=== PATIENT | female | born 1950 | race Caucasian/White ===

== ENCOUNTER 2023-02-04 14:19 | Outpatient (AMB) | payer MEDICARE, OTHER, SELFPAY ==
--- NOTE | 2023-02-04 14:31 | A.OFFVIS_ITS ---
Intake Intake Visit Reasons: Bladder Mass/ Cysto Intake Note: * New patient presents to established treatment for Bladder Mass/CYSTO Procedure * Meds- Cipro, Naproxen * Allergies to Antibiotic- None * Blood Thinner- Aspirin Edi Coordinator Required: No Accompanied by: Daughter Allergies No Known Allergies Allergy (Verified 02/04/23 14:31) HPI HPI Comments History of Present Illness Details Karmen is a 72-year-old female who is here as a new patient evaluation for bladder mass. 02/04/23-- The patient states for several weeks she has been having UTI symptoms including dysuria and blood in the urine. She was treated for UTI but was told urine culture did not come back with bacteria. Her PCP ordered a renal bladder ultrasound which noted a 5 cm mass the right side of the bladder. History of cigarette use age [age] less than half a pack a day. She states she was exposed to secondhand smoke for over 20 years in her workplace. Family history a mother lung cancer, bladder cancer. Evaluation today: Office cystoscopy pain notes a large greater than 5 cm papillary bladder mass right lateral wall in addition to at least 2 other smaller papillary lesions noted on the left lateral wall and posterior bladder wall. Plan: Bladder mass suspicious for bladder cancer. CTAP with and without IV contrast Discussed cystoscopy TURBT. Consent for the procedure was obtained. [facility] Medical History (Updated 02/06/23 @ 16:31 by Carrington Cano) Hx of gastroesophageal reflux (GERD) Hx of hyperlipidemia Hx of osteoporosis Surgical History (Updated 02/04/23 @ 15:34 by JUANA Antonio) History of ectopic History of laparoscopic appendectomy Hx of hiatal hernia Hx of total hysterectomy Family History (Updated 02/04/23 @ 14:47 by JUANA Antonio) Mother Tumor of lung Father Bladder cancer Myocardial infarction Review of Systems Const All systems reviewed & are unremarkable except as noted in HPI and below Reports no additional complaints Eyes Reports no additional complaints ENT Reports no additional complaints Card Denies dyspnea Resp Denies cough and Denies dyspnea GI Reports no additional complaints Reports no additional complaints Musc Reports no additional complaints Skin/Breast Denies rash and Denies unusual bruising Neuro Reports no additional complaints Psych Reports no additional complaints Endo Reports no additional complaints [place]/Lymph Reports no additional complaints Aller/Immun Reports no additional complaints Physical Exam Const General: cooperative, healthy appearing and no acute distress Orientation/consciousness: patient oriented x3 HEENT Head: Yes normal to inspection, Yes normocephalic and Yes atraumatic Eyes Conjunctivae: conjunctivae normal Neck Neck: Yes normal visual inspection and Yes trachea midline Chest Chest palpation & inspection: normal inspection of the chest Resp Effort & Inspection: normal respiratory effort Cardio Rate: regular rate GI Inspection: Yes normal to inspection Palpation (GI): Soft to palpation General: No no CVA tenderness External Female Exam: normal external appearance Speculum Exam - Vagina: vagina atrophic Back/Spine/Pelvis Back: No no CVA tenderness Skin General skin exam: no rashes or lesions noted Neuro General: patient oriented x3 Extrem General: No edema Psych Appearance: grossly normal Office Procedures Cystoscopy Consent Discussed risk and benefit or proposed procedure with the patient. Information consent for procedure given to the patient. Discussed technical aspects, risks, benefits and alternatives in full. Addressed all of the patient's questions and concerns regarding the procedure. The patient demonstrated knowledge and understanding. They wish to proceed with this procedure. Preparation The patient was prepped in the usual manner. A terminal computer operator was present and in the room. Genitalia was prepped with betadine solution in a sterile manner. Lidocaine Jelly 2% was placed into the urethra and 16Fr flexible Olympus cystoscope was inserted into the meatus after adequate lubrication. Procedure Time out per protocol performed. Bladder Inspection Bladder Inspection: The bladder was inspected in its entirety with utilization retroflexion displaying: Tumor(s): a large greater than 5 cm papillary bladder mass right lateral wall in addition to at least 2 other smaller papillary lesions noted on the left lateral wall and posterior bladder wall. Trabeculation: N/A Mucosal Erthema: mild to moderate Orifices: normal shape and position Urethra: normal Cystoscopy findings: suspicious bladder lesions visualized as noted above [id number] Procedure code (CPT) selection complete Office Meds lidocaine HCl Performing Provider: Carrillo Garcia MD Administered by: Tammy Hogue RN on 02/04/23 15:11 Dose Route Admin Location Lot Number Expiration Date NDC Sampler Pickup 10 mL intra-urethral naproxen Performing Provider: Carrillo Garcia MD Administered by: Tammy Hogue RN on 02/04/23 15:11 Dose Route Admin Location Lot Number Expiration Date NDC Sampler Pickup 500 mg PO ciprofloxacin HCl Performing Provider: Carrillo Garcia MD Administered by: Tammy Hogue RN on 02/04/23 15:11 Dose Route Admin Location Lot Number Expiration Date NDC Sampler Pickup 500 mg PO Results AMB Urinalysis, Automated UA Leukoctes 0 Lena/uL Last Edit by Rj Bustos [facility] on 02/04/23 14:52 UA Nitrite Negative Last Edit by Rj Bustos [facility] on 02/04/23 14:52 UA Urobilinogen 0.2 mg/dL Last Edit by Rj Bustos [facility] on 02/04/23 14:5 2 UA Protein 300 mg/dL Last Edit by Rj Bustos [facility] on 02/04/23 14:52 3+ Rj Bustos 02/04/23 14:52 UA pH 6.0 Last Edit by Rj Bustos [facility] on 02/04/23 14:52 UA Blood 200 Sloan/uL Last Edit by Rj Bustos [facility] on 02/04/23 14:52 3+ Rj Bustos 02/04/23 14:52 UA Specific [place] 1.025 Last Edit by Rj Bustos [facility] on 02/04/23 14: 52 UA Ketone Negative Last Edit by Rj Bustos [facility] on 02/04/23 14:52 UA Bilirubin 0 mg/dL Last Edit by Rj Busots [facility] on 02/04/23 14:52 UA Glucose 0 mg/dL Last Edit by Rj Bustos [facility] on 02/04/23 14:52 Results Reviewed Results Reviewed: Laboratory Last Values Urine pH (Auto) 6.0 02/04/23 14:49 Specific [place] (Auto) 1.025 02/04/23 14:49 Urine Protein (Auto) 300 mg/dL 02/04/23 14:49 Glucose (UA)(Auto) 0 mg/dL 02/04/23 14:49 Urine Ketones (Auto) Negative 02/04/23 14:49 Urine Blood (Auto) 200 Sloan/uL 02/04/23 14:49 Urine Nitrite (Auto) Negative 02/04/23 14:49 Urine Bilirubin (Auto) 0 mg/dL 02/04/23 14:49 Urine Urobilinogen (Auto) 0.2 mg/dL 02/04/23 14:49 Leukocyte Esterase (Auto) 0 Lena/uL 02/04/23 14:49 Assessment & Plan Assessment & Plan (1) Gross hematuria: Code(s): R31.0 - Gross hematuria (2) Bladder mass: Code(s): N32.89 - Other specified disorders of bladder Plan Bladder mass suspicious for bladder cancer. CTAP with and without IV contrast Discussed cystoscopy TURBT. Consent for the procedure was obtained. Orders: Orders CT abdomen pelvis wo/w IV con 02/04/23 N32.89 - Other specified disorders of bladder, R31.0 - Gross hematuria AMB Cystoscopy 02/04/23 Z13.9 - Encounter for screening, unspecified AMB Urinalysis Automated 02/04/23 Z13.9 - Encounter for screening, unspecified Patient Instructions: The patient had an opportunity to ask questions regarding treatment plan. All questions were answered. Laboratory studies and physical exam results were discussed and reviewed in detail. No major barriers to understanding were identified. The patient expressed understanding and agreement with the above treatment plan. The patient is aware they should contact our office by phone for worsening of their current condition or the appearance of new symptoms. Compliance is enco uraged with any medications and followup testing that is ordered. It is a privilege to be allowed the opportunity to participate in the urologic care of your patient. If you have any questions or concerns regarding treatment for the above conditions please do not hesitate to contact me. The office telephone contact is [phone]. This note is constructed in part using voice recognition software. While every effort has been made to ensure accuracy lung splitter errors may have been included. Yours sincerely, Carrillo Garcia MD Coding Level of Care Code New Pt Level 4 (35627) Diagnoses Gross hematuria R31.0 Bladder mass N32.89 CPT Codes Cystoscopy - CPT: 09332-[id number] ([id number])
== END 2023-02-04 15:53 | disposition home or self-care (01) ==
PROVIDERS: PCP Nurse Practitioner Family; Visit Provider Urology
DX: R31.0 Gross hematuria (principal); N32.89 Other specified disorders of bladder
CPT/HCPCS: 52000; 99204

== ENCOUNTER → 2023-02-04 14:19 | Outpatient (BNVA) | payer MEDICARE, OTHER, SELFPAY | PROVIDERS: PCP Nurse Practitioner Family; Visit Provider Urology | DX: R31.0 Gross hematuria (principal); N32.89 Other specified disorders of bladder | CPT/HCPCS: 52000; 99202 ==

== ENCOUNTER 2023-02-07 09:42 | Outpatient (REF) | payer MEDICARE, OTHER, SELFPAY ==
[2023-02-07 12:07] LABS: Blood Urea Nitrogen 23 mg/dL (9-16); Estimated Glomerular Filt Rate > 60
== END 2023-02-07 09:43 | disposition home or self-care (01) ==
LOC: HO.LAB 09:42
PROVIDERS: PCP Physician Assistant; Visit Provider Urology
DX: N32.89 Other specified disorders of bladder (principal); R31.0 Gross hematuria
CPT/HCPCS: 36415; 82565; 84520

== ENCOUNTER 2023-02-14 13:55 | Outpatient (REF) | payer MEDICARE, OTHER, SELFPAY ==
--- NOTE | ~2023-02-14 | CT_ITS ---
EXAMINATION: CT ABDOMEN AND PELVIS WITHOUT AND WITH CONTRAST CLINICAL INFORMATION: Disorder of bladder COMPARISON: None available. TECHNIQUE: Multidetector volumetric imaging was performed of the abdomen and pelvis before and after the IV administration of 85 mL of Omnipaque 300 intravenous contrast. Sagittal and coronal reformatted images were obtained on the technologist's workstation. This CT examination was performed using dose optimization techniques as appropriate, variously including the following: *Automated exposure control *Adjustment of mA and/or kV according to patient size (this includes techniques or standardized protocols for targeted exams where dose is matched to indication/reason for exam; i.e. extremities or head) *Use of iterative reconstruction technique DLP: 574 mGy-cm FINDINGS: LUNG BASES: The visualized lung bases are clear. Moderate size esophageal hernia. LIVER, GALLBLADDER, AND BILIARY TREE: Fatty liver. The gallbladder is unremarkable with no evidence of radiopaque gallstones, gallbladder wall thickening, or obvious pericholecystic inflammatory changes. PANCREAS: Unremarkable SPLEEN: Unremarkable ADRENAL GLANDS: Unremarkable KIDNEYS AND URETERS: The kidneys are normal in size, shape, and attenuation. No hydronephrosis, hydroureter, or calculi seen. No perinephric stranding. There may be a mild right UPJ obstruction. The collecting systems are otherwise normal. The ureters are normal. There are small left renal peripelvic cysts. BLADDER: There is a large bladder mass involving the anterior superior wall of the bladder. This measures approximately 6 x 3 I 6 cm in transverse AP and longitudinal dimension. There is a stranding of the perivesicular fat and nodular contour of the fat suggestive of extension outside the bladder wall. There is a second 5 mm polypoid mass adjacent to the left lateral bladder wall. Both findings are suspicious for malignancy. GASTROINTESTINAL TRACT: Mild diverticulosis of the colon. The small and large bowel are otherwise unremarkable. The appendix is not seen ABDOMINAL WALL: No significant hernia is appreciated. LYMPH NODES: Normal VASCULAR: Atherosclerotic disease. No aneurysm. PELVIC VISCERA: The uterus appears to have been removed. OSSEOUS STRUCTURES: Degenerative changes of the spine and mild curvature to the left. CT/CT abdomen pelvis wo/w IV con IMPRESSION: Large 6 x 6 x 3 cm bladder mass and likely local pelvic extension extension outside the bladder wall into the adjacent fat. Second small polypoid 5 mm lesion adjacent to the left lateral bladder wall. Both findings are suspicious for bladder neoplasm. Probable mild right UPJ obstruction. Mild diverticulosis of the colon. Fatty liver. Moderate size esophageal hernia. Fleischner guidelines were followed. 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
[2023-02-14] MEDS: iohexoL 350 MG/ML 100 ML INFUS..BTL IV (15:41)
== END 2023-02-14 13:56 | disposition home or self-care (01) ==
LOC: HO.CT 13:55
PROVIDERS: PCP Physician Assistant; Visit Provider Urology
DX: N32.89 Other specified disorders of bladder (principal); R31.0 Gross hematuria
CPT/HCPCS: 74178; Q9967

== ENCOUNTER 2023-02-19 06:42 | Day surgery (SDC) | payer MEDICARE, OTHER, SELFPAY ==
--- NOTE | 2023-02-18 09:21 | HO.ANESPROP2 ---
Documented by User: Darling Reyes NP 02/18/23 09:26 HPI - Anesthesia Eval Consult details Narrative: 72yo F for TUR Bladder Tumor PMFSH Active Problems Active Problems: All Active Problems (Updated 02/06/23 @ 16:31 by Carrington Cano) Bladder mass (Acute) Gross hematuria (Acute) Past Medical History Medical History (Updated 02/06/23 @ 16:31 by Carrington Cano) Hx of gastroesophageal reflux (GERD) Hx of hyperlipidemia Hx of osteoporosis Family History Family History (Updated 02/04/23 @ 14:47 by JUANA Antonio) Mother Tumor of lung Father Bladder cancer Myocardial infarction Surgical History Surgical History (Updated 02/04/23 @ 15:34 by JUANA Antonio) History of ectopic History of laparoscopic appendectomy Hx of hiatal hernia Hx of total hysterectomy Social History Social History Patient Tobacco Use Status: Former Tobacco user Quit Date: 50 years ago Tobacco use type: Cigarette Years Smoked: 3 Use of substances other than those prescribed or required for medical reasons: No Are you DNR?: No Advance Directives: No Advance Directives Information Provided: Yes Advance Directives on File: No Meds Allergies Allergy/AdvReac Type Severity Reaction Status Date / Time No Known Allergies Allergy Verified 02/04/23 14:31 Home Medications Medication Instructions Recorded Confirmed Last Taken Type aspirin 81 mg tablet,delayed 81 mg PO DAILY 02/04/23 02/19/23 01/26/23 History release atorvastatin 20 mg tablet 20 mg PO BEDTIME 02/04/23 02/19/23 02/17/23 History biotin 5,000 mcg disintegrating 5,000 mcg PO DAILY 02/04/23 02/19/23 02/18/23 History tablet biotin 800 mcg tablet 800 mcg PO DAILY 02/04/23 02/19/23 02/18/23 History calcium citrate 250 mg See Rx Instructions PO TID 02/04/23 02/19/23 02/18/23 History calcium-vitamin D3 5 mcg (200 unit) tablet cholecalciferol (vitamin D3) 50 2,000 unit PO DAILY 02/04/23 02/19/23 02/18/23 History mcg (2,000 unit) capsule fluoxetine 20 mg capsule 20 mg PO DAILY 02/04/23 02/19/23 02/18/23 History hydrochlorothiazide 25 mg tablet 25 mg PO ONCE 02/04/23 02/19/23 02/18/23 History multivitamin 1 tab PO DAILY 02/04/23 02/19/23 02/18/23 History omeprazole 20 mg capsule,delayed 20 mg PO DAILY 02/04/23 02/19/23 02/18/23 History release zoledronic acid 5 mg/100 mL in IV 02/04/23 Unknown History mannitol 5 %-water intravenous piggybck (Reclast) Exam Exam Date and Time: February 18, [id number] Pertinent Lab Results Pertinent Lab Results: Laboratory Tests 02/07/23 09:57 BUN 23 H Creatinine 0.84 Assessment and Plan Assessment Anesthesia Assessment: Chart Reviewed Documented by User: Yary Lujan MD 02/19/23 09:16 [facility] Past Medical History Medical History (Updated 02/06/23 @ 16:31 by Carrington Cano) Hx of gastroesophageal reflux (GERD) Hx of hyperlipidemia Hx of osteoporosis Family History Family History (Updated 02/04/23 @ 14:47 by JUANA Antonio) Mother Tumor of lung Father Bladder cancer Myocardial infarction Surgical History Surgical History (Updated 02/04/23 @ 15:34 by JUANA Antonio) History of ectopic History of laparoscopic appendectomy Hx of hiatal hernia Hx of total hysterectomy Social History Social History Patient Tobacco Use Status: Former Tobacco user Quit Date: 50 years ago Tobacco use type: Cigarette Years Smoked: 3 Use of substances other than those prescribed or required for medical reasons: No Are you DNR?: No Advance Directives: No Advance Directives Information Provided: Yes Advance Directives on File: No Meds Allergies Allergy/AdvReac Type Severity Reaction Status Date / Time No Known Allergies Allergy Verified 02/04/23 14:31 Home Medications Medication Instructions Recorded Confirmed Last Taken Type aspirin 81 mg tablet,delayed 81 mg PO DAILY 02/04/23 02/19/23 01/26/23 History release atorvastatin 20 mg tablet 20 mg PO BEDTIME 02/04/23 02/19/23 02/17/23 History biotin 5,000 mcg disintegrating 5,000 mcg PO DAILY 02/04/23 02/19/23 02/18/23 History tablet biotin 800 mcg tablet 800 mcg PO DAILY 02/04/23 02/19/23 02/18/23 History calcium citrate 250 mg See Rx Instructions PO TID 02/04/23 02/19/23 02/18/23 History calcium-vitamin D3 5 mcg (200 unit) tablet cholecalciferol (vitamin D3) 50 2,000 unit PO DAILY 02/04/23 02/19/23 02/18/23 History mcg (2,000 unit) capsule fluoxetine 20 mg capsule 20 mg PO DAILY 02/04/23 02/19/23 02/18/23 History hydrochlorothiazide 25 mg tablet 25 mg PO ONCE 02/04/23 02/19/23 02/18/23 History multivitamin 1 tab PO DAILY 02/04/23 02/19/23 02/18/23 History omeprazole 20 mg capsule,delayed 20 mg PO DAILY 02/04/23 02/19/23 02/18/23 History release zoledronic acid 5 mg/100 mL in IV 02/04/23 Unknown History mannitol 5 %-water intravenous piggybck (Reclast) Exam Airway Mallampati Class: I TM Dist: >3cm Neck ROM: Full Loose/Missing/Broken Teeth: No
[2023-02-19] VITALS (15 sets, daily range): BP systolic 99–153; BP diastolic 54–78; PULSE 52–95; RESP 11–20; TEMP 36.1–37.1; O2SAT 94–100; BMI 26.1; BMI 29.2
[2023-02-19] MEDS: Lactated Ringers 1,000 ML 100 ML IVCONT (08:13)
--- NOTE | 2023-02-19 08:44 | MHC.SHP ---
Pre-Procedural Eval Section A Date of Service: 02/19/23 The patient is an INPATIENT: No The History & Physical has been completed within 30 days and I have reviewed it.: Yes Section B Chief Complaint: Other specified disorders of bladder Details of Present Illness: CT Abd/pelvis w/wo IV contrast-Findings: >6 cm bladder mass and likely local pelvic extension, extension outside the bladder wall into the adjacent fat. Second small polypoid 5 mm lesion adjacent to the left lateral bladder wall. Allergies: Allergies Allergy/AdvReac Type Severity Reaction Status Date / Time No Known Allergies Allergy Verified 02/04/23 14:31 Plan Diagnosis/Plan: Unchanged I have reviewed the history and physical and performed a pertinent physical examination on my patient. No changes have occurred unless specified. Cysto TURBT Fulgaration Time Spent With Patient Time: Total time managing care of this patient today ____ minutes.
[2023-02-19 09:19] LABS: MANUAL DIFF FLAG NO
[2023-02-19 09:20] LABS: Basophils Percent Auto 0.8 % (0-2); Eosinophils Absolute Auto 0.1 X10*3/uL (0.0-0.4); Eosinophils Percent Auto 2.5 % (0-4); Hemoglobin 13.2 g/dl (12.0-16.0); Imm Gran Abs Auto 0.01 X10*3/uL (0.00-0.03); Imm Gran Pct Auto 0.2 % (0.0-0.4); Lymphocytes Absolute Auto 1.6 X10*3/uL (1.2-4.9); Lymphocytes Percent Auto 30.7 % (20-40); Mean Corpuscular Hemoglobin 30.9 pg (27.0-33.0); Mean Corpuscular Volume 93.7 fL (80.0-98.0); Mean Platelet Volume 9.8 fL (9.4-12.3); Monocytes Absolute Auto 0.4 X10*3/uL (0.1-1.2); Monocytes Percent Auto 7.6 % (2-11); Neutrophils Percent Auto 58.2 % (45-73); Platelet Count 198 X10*3/uL (160-400); Red Blood Count 4.27 X10*6/uL (4.20-5.50); Red Cell Distribution Width 13.2 % (11.0-16.0); White Blood Count 5.1 X10*3/uL (4.8-10.8)
[2023-02-19] MEDS: oxyCODONE HCl Immed Release 5 MG TABLET PO (12:40)
--- NOTE | 2023-02-19 12:47 | W.PM.OPN ---
Operative Note Operative Note Date of Service: 02/19/23 Narrative: PREOP DIAGNOSIS: Bladder mass POSTOP DIAGNOSIS: Bladder mass PROCEDURE: CYSTOSCOPY TRANSURETHRAL RESECTION OF BLADDER TUMOR, FULGURATION Anesthesia: General Surgeon Dr. Arevalo Indications: Gross hematuria Findings: Right lateral/superior wall large tumor >6 cm, satellite papillary tumors, posterior wall, left lateral wall, behind trigone Details of procedure: The patient was brought into the operating room placed on the OR table in supine position. Levaquin 500 mg IV. General anesthesia was administered. The patient was repositioned into lithotomy position, prepped and draped in the usual sterile fashion. Time-out was done per protocol. 2 urojet placed. The 24 Lithuanian resectoscope with obturator was passed transurethrally into the bladder. Visualization of the bladder noted Very large papillary bladder tumor right lateral/anterior to superior wall involving the dome, multiple satelite lesions, 7 small lesions measuring 2mm to 10 mm noted one lateral to the right hemitrigne, 2 left lateral wall, 4 posterior wall. No active bleeding noted. The loop and rollar ball attachments were used initially to fulgarate the smaller lesions. The larger papillary tumor left posterior lateral wall was resected and sent as specimen. Due to the size the the tumor on othe right lateral/superior wall, the loop/and roller ball was used to fulgurate the large bladder tumor to limit bleeding, some of the tumor was resected and sent with the specimen, there was tumor extending into the dome and there appeared to be a wide mouthed small diverticulum at the dome, all the the tumor in that area was not fulgarated or completely resected. Once there was good hemostasis, a 20 fr smith was placed to gravity drainage. 15 cc fluid placed in the balloon. The patient was brought out of anesthesia and taken to recovery in stable condition. Complications: None Drains: [address] catheter 15 cc in balloon
[2023-02-19] MEDS: fentaNYL citrate/PF 100 MCG/2 ML VIAL 50 MCG IVPUSH (13:19)
--- NOTE | 2023-02-19 13:19 | PHA.MEDREC ---
Pharmacy Consult ? Medication Reconciliation Pharmacy has completed the medication reconciliation. Reviewed med rec done by nursing
[2023-02-19] MEDS: Sodium Chloride 0.45 % 1,000 ML 100 ML IVCONT ×2 (14:59→23:53)
[2023-02-19] MEDS: Throat Lozenge, Medicated LOZENGE 1 LOZENGE MUCOUS MEM (19:32)
[2023-02-19] MEDS: Docusate Sodium 100 MG CAPSULE PO (19:34)
[2023-02-19] MEDS: Magnesium Hydrox/Alum Hydrox 30 ML ORAL.SUSP PO (19:34)
[2023-02-19] MEDS: Melatonin 3 MG TABLET PO (22:10)
[2023-02-20] MEDS: Magnesium Hydrox/Alum Hydrox 30 ML ORAL.SUSP PO ×2 (03:35→10:59)
[2023-02-20] MEDS: Acetaminophen 325 MG TABLET 650 MG PO (03:37)
[2023-02-20 04:00] VITALS: BP 98/53; PULSE 74; RESP 16; TEMP 36.7; O2SAT 95
[2023-02-20] MEDS: Omeprazole 20 MG CAPSULE.DR PO (05:59)
[2023-02-20 06:53] LABS: Basophils Percent Auto 0.1 % (0-2); Hematocrit 39.5 % (37.0-47.0); Hemoglobin 13.1 g/dl (12.0-16.0); Imm Gran Abs Auto 0.03 X10*3/uL (0.00-0.03); Imm Gran Pct Auto 0.4 % (0.0-0.4); Lymphocytes Absolute Auto 1.4 X10*3/uL (1.2-4.9); Lymphocytes Percent Auto 16.8 % (20-40); MANUAL DIFF FLAG NO; Mean Corpuscular HGB Conc 33.2 g/dl (31.0-35.0); Mean Corpuscular Volume 93.4 fL (80.0-98.0); Mean Platelet Volume 10.7 fL (9.4-12.3); Monocytes Absolute Auto 0.7 X10*3/uL (0.1-1.2); Monocytes Percent Auto 7.8 % (2-11); Neutrophils Absolute Auto 6.4 x10*3/uL (2.0-8.3); Neutrophils Percent Auto 74.9 % (45-73); Platelet Count 226 X10*3/uL (160-400); Red Blood Count 4.23 X10*6/uL (4.20-5.50); Red Cell Distribution Width 13.4 % (11.0-16.0); White Blood Count 8.5 X10*3/uL (4.8-10.8)
[2023-02-20 07:17] LABS: Anion Gap 11 (12-20); Blood Urea Nitrogen 11 mg/dL (9-16); Calcium 8.8 mg/dL (8.4-10.2); Carbon Dioxide 28 mmol/L (22-29); Chloride 109 mmol/L (96-108); Creatinine Clr Calc Pharmacy 68.9; Estimated Glomerular Filt Rate > 60; Glucose Random 103 mg/dL (60-115); Potassium 3.5 mmol/L (3.3-5.1); Sodium 144 mmol/L (135-145)
[2023-02-20 08:00] VITALS: BP 116/63; PULSE 77; RESP 20; TEMP 36.3; O2SAT 91
--- NOTE | 2023-02-20 08:04 | HO.POSTANES ---
Post Anesthesia Evaluation Post Anesthesia Evaluation Date of Service: 02/20/23 Vital Signs: Vital Signs Temp Pulse Resp BP Pulse Ox O2 Del Method 02/20/23 04:00 98.0 F 74 16 98/53 L 95 Room Air 02/19/23 23:37 97.4 F 90 16 99/54 L 94 Room Air Anesthesia: General LMA Mental Status: Awake Pain Control: Satisfactory Nausea/Vomiting: None Hydration: Adequate Anesthesia-Related Issues: No Anes. Related Issues
[2023-02-20] MEDS: Docusate Sodium 100 MG CAPSULE PO (08:56)
[2023-02-20] MEDS: Milk of Magnesia 30 ML ORAL.SUSP PO (10:29)
--- NOTE | 2023-02-20 11:57 | MHC.CM.PN ---
pt lives alone has no servceis pt is independent dc plan home no servceis has ride home
[2023-02-20 12:00] VITALS: BP 108/53; PULSE 79; RESP 18; TEMP 36.4; O2SAT 93
--- NOTE | 2023-02-20 12:36 | P.CONHOSP_ITS ---
History of Present Illness Data of Consult Service Date: 02/20/23 Requesting physician: Carrillo Garcia Primary Care Provider: BERTRAM Rogers HPI 72-year-old woman admitted by urological services and is status post cystoscopy with transurethral resection of bladder tumor and fulguration. Surgery was unremarkable. Patient denies any nausea, vomiting, diarrhea, chest pain, shortness of breath. She did report some constipation with last bowel movement being 02/15/2023. Labs within acceptable limits, vital signs stable. Review of Systems Review of Systems: Denies any recent fever chills or decrease in appetite respiratory denies any shortness of breath coverage production cardiovascular systolic murmur, unknown type gastrointestinal denies any dysphagia abdominal pain nausea vomiting or diarrhea genitourinary denies any dysuria frequency or hematuria musculoskeletal denies any joint pain or swelling neuropsych denies any weakness or seizures all other systems reviewed are negative [facility] Medical History (Updated 02/06/23 @ 16:31 by Carrington Cano) Hx of gastroesophageal reflux (GERD) Hx of hyperlipidemia Hx of osteoporosis Family History (Updated 02/04/23 @ 14:47 by JUANA Antonio) Mother Tumor of lung Father Bladder cancer Myocardial infarction Surgical History (Updated 02/04/23 @ 15:34 by JUANA Antonio) History of ectopic History of laparoscopic appendectomy Hx of hiatal hernia Hx of total hysterectomy Social History Household Members: None Housing: House Do you presently have visiting nurse or other home services: No Patient Tobacco Use Status: Former Tobacco user Quit Date: 50 years ago Tobacco use type: Cigarette Years Smoked: 3 Smoked in Last 30 Days: No Patient Interested in Nicotine Replacement: No Patient Given Instructions on How to Stop Smoking: No Second Hand Smoke Exposure: No Use of substances other than those prescribed or required for medical reasons: No Currently Displaying Signs/Symptoms of Drug Intoxication Withdrawal: No Any prior treatment program specific to substance use: No Have you been hit, kicked, punched, or otherwise hurt by someone within the past year? If so, by whom?: No Do you feel safe in your current relationship?: Yes Is there a partner from a previous relationship who is making you feel unsafe now?: No Are you made to feel afraid or neglected: No Are you DNR?: No Advance Directives: No Advance Directives Information Provided: Yes Advance Directives on File: No Do you have thoughts of harming others: None Do you have a plan to hurt others: No Plan Recently lost weight without trying: No Eating poorly because of decreased appetite: No Nutrition Risks: No Nutritional Risk Patient : No : No service: No Meds Allergies Allergy/AdvReac Type Severity Reaction Status Date / Time No Known Allergies Allergy Verified 02/04/23 14:31 Active Medications: Current Medications Acetaminophen (Acetaminophen 325 Mg Tablet) 650 mg PO Q6H PRN PRN Reason: Pain, Mild (Pain Scale 1-3) Last Admin: 02/20/23 03:37 Dose: 650 mg Hydrocodone Bitart/Acetaminophen (Hydrocodone Bit/Acetam 5/325 Tablet) 1 tab PO Q4H PRN PRN Reason: Pain, Moderate(Pain Scale 4-6) Al Hydroxide/Mg Hydroxide (Magnesium Hydrox/Alum Hydrox 30 Ml Oral.Susp) 30 ml PO Q8H PRN PRN Reason: Indigestion Last Admin: 02/20/23 10:59 Dose: 30 ml Benzocaine (Throat Lozenge, Medicated Lozenge) 1 lozenge MUCOUS MEM Q1H PRN PRN Reason: Sore Throat Last Admin: 02/19/23 19:32 Dose: 1 lozenge Docusate Sodium (Docusate Sodium 100 Mg Capsule) 100 mg PO BID [facility] Last Admin: 02/20/23 08:56 Dose: 100 mg Fentanyl (Fentanyl Citrate/Pf 100 Mcg/2 Ml Vial) 50 mcg IVPUSH Q5M PRN; Protocol PRN Reason: Pain, Severe (Pain Scale 7-10) Last Admin: 02/19/23 13:19 Dose: 50 mcg Magnesium Hydroxide (Milk Of Magnesia 30 Ml Oral.Susp) 30 ml PO DAILY PRN PRN Reason: Constipation Last Admin: 02/20/23 10:29 Dose: 30 ml Melatonin (Melatonin 3 Mg Tablet) 3 mg PO BEDTIME PRN PRN Reason: Insomnia Last Admin: 02/19/23 22:10 Dose: 3 mg Omeprazole (Omeprazole 20 Mg Capsule.Dr) 20 mg PO DAILY@0630 [facility] Last Admin: 02/20/23 05:59 Dose: 20 mg Ondansetron HCl (Ondansetron Hcl 4 Mg/2 Ml Vial) 4 mg IVPUSH Q6H PRN PRN Reason: Nausea and Vomiting Sodium Chloride (0.9 % Sodium Chloride Flush 3 Ml Syringe) 3 ml IVFLUSH QSHIFT [facility] Last Admin: 02/20/23 11:36 Dose: Not Given Home Medications Medication Instructions Recorded Confirmed Last Taken Type aspirin 81 mg tablet,delayed 81 mg PO DAILY 02/04/23 02/19/23 01/26/23 History release atorvastatin 20 mg tablet 20 mg PO BEDTIME 02/04/23 02/19/23 02/17/23 History biotin 5,000 mcg disintegrating 5,000 mcg PO DAILY 02/04/23 02/19/23 02/18/23 History tablet biotin 800 mcg tablet 800 mcg PO DAILY 02/04/23 02/19/23 02/18/23 History calcium citrate 250 mg See Rx Instructions PO TID 02/04/23 02/19/23 02/18/23 History calcium-vitamin D3 5 mcg (200 unit) tablet cholecalciferol (vitamin D3) 50 2,000 unit PO DAILY 02/04/23 02/19/23 02/18/23 History mcg (2,000 unit) capsule fluoxetine 20 mg capsule 20 mg PO DAILY 02/04/23 02/19/23 02/18/23 History hydrochlorothiazide 25 mg tablet 25 mg PO ONCE 02/04/23 02/19/23 02/18/23 History multivitamin 1 tab PO DAILY 02/04/23 02/19/23 02/18/23 History omeprazole 20 mg capsule,delayed 20 mg PO DAILY 02/04/23 02/19/23 02/18/23 History release zoledronic acid 5 mg/100 mL in IV 02/04/23 Unknown History mannitol 5 %-water intravenous piggybck (Reclast) Physical Exam Vital Signs and Narrative: Vital Signs: Last Vital Signs Temp 97.5 F 02/20/23 12:00 Pulse 79 02/20/23 12:00 Resp 18 02/20/23 12:00 BP 108/53 L 02/20/23 12:00 Pulse Ox 93 02/20/23 12:00 O2 Del Method Room Air 02/20/23 12:00 O2 Flow Rate 2 02/19/23 14:15 BMI result Body Mass Index 29.2 Appearing in no acute distress head is normocephalic atraumatic eyes pupils are PERRLA sclera is anicteric mouth throat mucous membranes are intact and moist neck is supple no lymphadenopathy, no JVD noted lung sounds are clear to auscultation heart regular clear S1-S2 systolic murmur, unknown type positive bowel sounds, abdomen is soft, nontender neuro patient is alert x3, no focal deficits Results Labs 02/20/23 05:42 02/20/23 05:42 Labs: Laboratory Results - last 24 hr 02/20/23 02/20/23 05:42 05:42 MCV 93.4 MCH 31.0 MCHC 33.2 RDW 13.4 Plt Count 226 MPV 10.7 Immature Gran % (Auto) 0.4 Neut % (Auto) 74.9 H Lymph % (Auto) 16.8 L [place] % (Auto) 7.8 Eos % (Auto) 0.0 Baso % (Auto) 0.1 Lymph # (Auto) 1.4 [place] # (Auto) 0.7 Eos # (Auto) 0.0 Baso # (Auto) 0.0 Abs Immat Gran (auto) 0.03 Absolute Neuts (auto) 6.4 Absolute Nucleated RBC 0.000 Nucleated RBC % (auto) 0.0 Anion Gap 11 L Estim Creat Clear Calc 68.9 Estimated GFR > 60 Random Glucose 103 Calcium 8.8 Assessment and Plan (1) Bladder mass: Status: Acute Plan 72-year-old woman status post cystoscopy with a noted grade 1-2 systolic murmur, asymptomatic Cystoscopy Management as per surgical team Systolic murmur Noted by RN and reported to surgeon Nothing to do at this point, patient asymptomatic If symptoms shortness of breath ever do present she may follow-up with your primary care provider for further referral and evaluation Constipation May use Fleet enema, MiraLax and Colace Medical consultation complete. Will sign off Time Spent With Patient Time: Total time managing care of this patient today ____ minutes.
[2023-02-20] MEDS: Mineral OiL enema 133 ML ENEMA PR (14:00)
--- NOTE | 2023-02-20 14:22 | MHC.CM.PN ---
pt dcd home no servcies ordered
[2023-02-20 14:58] VITALS: BP 104/55; PULSE 78; RESP 18; TEMP 36.6; O2SAT 97
[2023-02-20] MEDS: 0.9 % Sodium Chloride Flush 3 ML SYRINGE IVFLUSH (18:38)
== END 2023-02-20 18:38 | disposition home or self-care (01) ==
LOC: HO.SSS 06:42 → HO.S3 13:49
PROVIDERS: PCP Physician Assistant; Visit Provider Urology
PROC: 0TBB8ZZ Excision of Bladder, Via Natural or Artificial Opening Endoscopic (ICD-10-PCS; CPT 52240; principal; 2023-02-19 08:30)
DX: C67.4 Malignant neoplasm of posterior wall of bladder (principal); C79.11 Secondary malignant neoplasm of bladder; R31.0 Gross hematuria; Z80.52 Family history of malignant neoplasm of bladder; K21.9 Gastro-esophageal reflux disease without esophagitis; E78.5 Hyperlipidemia, unspecified; M81.0 Age-related osteoporosis without current pathological fracture; Z79.899 Other long term (current) drug therapy; Z79.82 Long term (current) use of aspirin; Z87.891 Personal history of nicotine dependence
CPT/HCPCS: 52240; 36415; 80048; 85025; 87086; 88307; J0131; J1100; J1956; J2250; J2405; J2550; J3010

== ENCOUNTER → 2023-02-19 06:42 | Outpatient (BNV) | payer MEDICARE, OTHER, SELFPAY | PROVIDERS: PCP Physician Assistant; Visit Provider Urology | DX: C67.4 Malignant neoplasm of posterior wall of bladder (principal) | CPT/HCPCS: 52240 ==

== ENCOUNTER → 2023-02-19 06:42 | Outpatient (BNV) | payer MEDICARE, OTHER, SELFPAY | PROVIDERS: PCP Physician Assistant; Visit Provider Nurse Practitioner Acute Care | DX: N32.89 Other specified disorders of bladder (principal) | CPT/HCPCS: 99222 ==

== ENCOUNTER → 2023-02-26 10:34 | Outpatient (BNVA) | payer MEDICARE, OTHER, SELFPAY | PROVIDERS: PCP Physician Assistant; Visit Provider Urology ==

== ENCOUNTER → 2023-02-26 14:55 | Outpatient (BNV) | payer MEDICARE, OTHER, SELFPAY | PROVIDERS: PCP Physician Assistant; Visit Provider Internal Medicine | DX: C67.3 Malignant neoplasm of anterior wall of bladder (principal); R10.2 Pelvic and perineal pain; Z79.01 Long term (current) use of anticoagulants; Z92.21 Personal history of antineoplastic chemotherapy | CPT/HCPCS: 99204; 99212; 99214; 99215; G2211 ==

== ENCOUNTER → 2023-02-28 10:40 | Outpatient (REF) | payer MEDICARE, OTHER, SELFPAY ==
--- NOTE | ~2023-02-28 | CT_ITS ---
EXAMINATION: CT CHEST WITH CONTRAST CLINICAL INFORMATION: Staging bladder cancer. COMPARISON: None available. TECHNIQUE: Multidetector volumetric CT imaging of the chest was obtained after the administration of 65 mL of Omnipaque 350 intravenous contrast without immediate adverse reactions. Axial MIP volume rendering provided. Sagittal and coronal reformatted images were obtained. This CT examination was performed using dose optimization techniques as appropriate, variously including the following: *Automated exposure control *Adjustment of mA and/or kV according to patient size (this includes techniques or standardized protocols for targeted exams where dose is matched to indication/reason for exam; i.e. extremities or head) *Use of iterative reconstruction technique DLP: 81 mGy-cm FINDINGS: LUNGS: No focal consolidation or significant ground-glass disease. Central airways are patent. Mild bibasilar subsegmental atelectasis. Small calcified granulomas are seen. A few sub-3 mm noncalcified solid pulmonary nodules are seen, for example (series 5): 1. A 0.2 cm nodule in the right upper lobe image 43. 2. A 0.2 cm nodule in the right lower lobe, image 119. 3. A 0.3 cm nodule in the left lower lobe, image 100. MEDIASTINUM: Normal heart size. No pericardial effusion. No mediastinal or hilar lymphadenopathy. Enlarged heterogeneous right lobe of the thyroid. Coronary artery calcifications are present. PLEURA: No pleural effusion or pneumothorax. AXILLA: No axillary lymphadenopathy. There is a well-defined rounded fluid attenuating superficial observation abutting the skin of the right upper back coronal image 80 series 8 favoring to represent a sebaceous/pilonidal cysts. UPPER ABDOMEN: Moderate size hiatal hernia. Decreased attenuation of liver parenchyma suggesting hepatic steatosis. OSSEOUS STRUCTURES: No acute or aggressive-appearing osseous findings. Thoracic kyphosis with degenerative changes of the spine. CT/CT chest w IV con IMPRESSION: 1. A few sub-3 mm pulmonary nodules are noted; recommend followup according to oncologic guidelines in this patient with history of bladder cancer. 2. Hepatic steatosis. 3. Moderate size hiatal hernia. 4. Enlarged heterogeneous right lobe of the thyroid. Based on the recommendations of the ACR Incidental Thyroid Findings Committee (JACR 2014; 12(2):143-50), further evaluation by thyroid ultrasound is recommended for a heterogeneously enlarged thyroid gland in patients that do not have limited life expectancy or significant co-morbidities, unless clinically warranted.
--- NOTE | ~2023-02-28 | NM_ITS ---
EXAMINATION: NM BONE SCAN OF THE WHOLE BODY CLINICAL INFORMATION: Bladder cancer. Initial staging. COMPARISON: CT of the abdomen and pelvis done on 02/14/2023. TECHNIQUE: Multiple gamma scintillation camera images of the whole body were performed 2.25 hours following the intravenous administration of 23 mCi Tc-99m MDP. The radiotracer was injected through right antecubital superficial vein without complications. FINDINGS: In the head, asymmetric increased activity is present projecting in the region of the left-sided check/maxilla, best seen on the anterior frontal projection on the whole body image. Correlation with follow-up CT scan and/or radiographs as appropriate is recommended for further clarification. In the thoracic cage and upper extremities, mildly increased radiotracer activities at both sternoclavicular and acromioclavicular joints likely represent degenerative and/or arthritic changes. In the spine, scoliotic and mild multilevel degenerative spondylosis related changes are present without any definite suspicious focal abnormality. In the pelvis, no suspicious focal lesion. In the lower extremities, no suspicious focal lesion. No other definite bony abnormalities are noted. The urinary bladder and faint visualization of both kidneys are noted. NM/NM bone scan whole body IMPRESSION: 1. Indeterminate asymmetric increased radiotracer activity is present overlying the left-sided cheek/maxillary region, not optimally characterized. Follow-up correlation with CT scan and/or radiographs as appropriate is recommended for further clarification. 2. No other definite focal suspicious osseous abnormality. Incidental note is made of likely degenerative arthritic changes at both acromioclavicular and sternoclavicular joints and scoliotic changes within the spine and superimposed likely degenerative spondylosis.
[2023-02-28] MEDS: iohexoL 350 MG/ML 100 ML INFUS..BTL 85 ML IV (15:30)
== END ==
LOC: HO.NUCMED 10:40
PROVIDERS: PCP Physician Assistant; Visit Provider Internal Medicine
DX: C67.9 Malignant neoplasm of bladder, unspecified (principal)
CPT/HCPCS: 71260; 78306; A9503

== ENCOUNTER 2023-03-07 11:57 | Outpatient (REF) | payer MEDICARE, OTHER, SELFPAY ==
--- NOTE | ~2023-03-07 | US_ITS ---
EXAMINATION: US THYROID CLINICAL INFORMATION: Enlarged thyroid on CT. COMPARISON: CT chest 02/28/2023. TECHNIQUE: Linear transducer grayscale and color Doppler examination with attention to the region of the thyroid. FINDINGS: SIZE: Measurements of the thyroid lobes and nodules are given in sagittal, anteroposterior and transverse dimensions respectively. Right Thyroid Lobe: 4.8 x 2.3 x 1.7 cm, volume 10.0 mL. Parenchyma: The gland echotexture is heterogeneous. Thyroid vascularity is normal. Left Thyroid Lobe: 4.1 x 1.7 x 1.3 cm, volume 4.8 mL. Parenchyma: The gland echotexture is homogeneous. Thyroid vascularity is normal. Isthmus: 0.4 cm in maximum AP dimension. Estimated total number of nodules greater than or equal to 1 cm: 2. Pewter Finisher nodules are described as follows: 1. Location: Right upper/mid pole. Size: 1.1 x 0.8 x 1.0 cm, volume 0.5 mL. Nodule characteristics: Composition: Solid/almost completely solid (2). Echogenicity: Isoechoic (1). Shape: Not taller than wide (0). Margins: Ill-defined (0). Echogenic Foci: None (0). ACR TI-RADS total points: 3 ACR TI-RADS category: 3 2. Location: Right lateral/mid. Size: 1.2 x 0.9 x 0.9 cm, volume 0.5 mL. Nodule characteristics: Composition: Spongiform (0). ACR TI-RADS total points: 0 ACR TI-RADS category: 1 3. Location: Right medial/upper pole. Size: 0.8 x 0.5 x 0.6 cm, volume 0.1 mL. Nodule characteristics: Composition: Spongiform (0). ACR TI-RADS total points: 0 ACR TI-RADS category: 1 4. Location: Right mid pole. Size: 0.4 x 0.4 x 0.4 cm, volume 0.03 mL. Nodule characteristics: Composition: Cystic(0). ACR TI-RADS total points: 0 ACR TI-RADS category: 1 5. Location: Left medial/upper pole. Size: 0.5 x 0.3 x 0.5 cm, volume 0.04 mL. Nodule characteristics: Composition: Mixed cystic and solid (1). Echogenicity: Isoechoic (1). Shape: Not taller than wide (0). Margins: Smooth (0). Echogenic Foci: None (0). ACR TI-RADS total points: 2 ACR TI-RADS category: 2 NODES: No lymphadenopathy is seen in the tissue surrounding the thyroid gland. US/US thyroid IMPRESSION: Multinodular thyroid gland with subcentimeter nodules as detailed above. Following guidelines detailed below, no imaging follow-up is recommended at this time. ACR TI-RADS RECOMMENDATION REFERENCE: Ultrasound-guided fine-needle aspiration, followup ultrasound, no further follow up. * TR1 (0 point) and TR2 (2 points): No FNA or follow up. * TR3 (3 points): FNA if more than or equal to 2.5 cm in maximum dimension, followup ultrasound in 1, 3 and 5 years if 1.5 to 2.4 cm in maximum dimension. * TR4 (4-6 points): FNA if more than or equal to 1.5 cm in maximum dimension, followup ultrasound in 1, 2, 3 and 5 years if 1 to 1.4 cm in maximum dimension. * TR5 (more than or equal to 7 points): FNA if more than or equal to 1 cm in maximum dimension, followup ultrasound every year for 5 years if 0.5 to 0.9 cm in maximum dimension. * TR3, TR4 or TR5 nodules that are below the size threshold for followup receive no follow up.
== END 2023-03-07 11:58 | disposition home or self-care (01) ==
LOC: HO.US 11:57
PROVIDERS: PCP Physician Assistant; Visit Provider Internal Medicine
DX: E04.9 Nontoxic goiter, unspecified (principal)
CPT/HCPCS: 76536

== ENCOUNTER 2023-03-14 09:23 | Outpatient (AMB) | payer MEDICARE, OTHER, SELFPAY ==
--- NOTE | 2023-03-14 03:18 | A.OFFVIS_ITS ---
Intake Intake Visit Reasons: 3w follow up Intake Note: Patient presents today for a follow-up on Post Op Cysto TURBT Fulguration: Meds- None Allergies to Antibiotic- No Known Allergies Blood Thinner- Aspirin Roll Off Driver Required: No Accompanied by: Self / Same As Patient Allergies No Known Allergies Allergy (Verified 03/14/23 09:25) HPI HPI Comments History of Present Illness Details Karmen is a 72-year-old female who presents today to the office for a 3- week follow up on Post Op Cysto TURBT Fulguration. 03/14/2023? She was last seen by me on 02/04/2023 for urinary tract symptoms including dysuria and hematuria.? Office cystoscopy at that time revealed a large greater than 5 cm papillary bladder mass in the right lateral wall in addition to at least 2 other smaller papillary lesions noted on the left lateral wall and posterior bladder wall. Discussed cystoscopy TURBT at that time, and she was sent for CT of the abdomen/pelvis with and without contrast, performed on 02/14/2023. She underwent TURBT on 02/19/2023 which revealed high grade muscle invasive bladder cancer. She reports soreness from the catheter is resolved. She states that she is urinating frequently but able to make it to the bathroom without leaking. She had issues with her bowel movements and states that she had taken dulcolax which helped her. Patient had pathology of the bladder done on 02/19/2023 revealed bladder tumor resection in high grade pap carcinoma. One specimen, did not include muscle, while the other specimen noted that the cancer was invasive into the muscularis propria. Patient was referred to hematology oncology. She has seen Dr. Dowd on 02/26/2023, it was discussed with the patient that she will benefit from neoadjuvant chemotherapy and follow up cystectomy pending metastatic w/u. Dr. Dowd ordered a CT chest and bone scan. I have reviewed CT of the chest results from 02/28/2023 revealed a few less than 3 mm pulmonary nodules noted. I have reviewed the results MRI of the pelvis revealed bladder cancer involving the anterior wall with extension into the fat around the bladder, no pathological lymph node or distant metastasis. I have reviewed the bone scan 02/28/2023 revealed no definite suspicious osseous abnormalities noted. She has an upcoming appointment with Dr. Youngblood on 04/02/[address] Wilson on 03/29/2023. She also has an upcoming appointment with Dr. Dowd next week. Review of chart: Last visit: 02/04/2023: 02/04/23-- The patient states for several weeks she has been having UTI symptoms including dysuria and blood in the urine. She was treated for UTI but was told urine culture did not come back with bacteria.? Her PCP ordered a renal bladder ultrasound which noted a 5 cm mass the right side of the bladder. History of cigarette use age [age] less than half a pack a day.? She states she was exposed to secondhand smoke for over 20 years in her workplace. Family history a mother lung cancer, bladder cancer. Evaluation today:? Office cystoscopy pain notes a large greater than 5 cm papillary bladder mass right lateral wall in addition to at least 2 other smaller papillary lesions noted on the left lateral wall and posterior bladder wall. Plan:? Bladder mass suspicious for bladder cancer. CTAP with and without IV contrast Discussed cystoscopy TURBT. Consent for the procedure was obtained. 03/14/2023?Plan: Patient would like to get a second opinion at [facility]. She has an appointment with Dr. Wilson 03/29/2023, and with Dr. Gonzalez on 04/02/2023. I have scheduled a 6-month follow up which she may need to change depending on where she is in the course of therapy. She does want to have chemotherapy done locally with [facility] oncologist. [facility] Medical History Hx of gastroesophageal reflux (GERD) Hx of hyperlipidemia Hx of osteoporosis Surgical History History of ectopic History of laparoscopic appendectomy Hx of cystoscopy Hx of hiatal hernia Hx of total hysterectomy Family History Mother Tumor of lung Father Bladder cancer Myocardial infarction Social History Household Members: Spouse and None Housing: House Do you presently have visiting nurse or other home services: No Patient Tobacco Use Status: Former Tobacco user Quit Date: 50 years ago Tobacco use type: Cigarette Years Smoked: 3 Second Hand Smoke Exposure: No service: No Current occupational status: retired and disabled Review of Systems Const All systems reviewed & are unremarkable except as noted in HPI and below Reports no additional complaints Eyes Reports no additional complaints ENT Reports no additional complaints Card Denies dyspnea Resp Denies cough and Denies dyspnea GI Reports no additional complaints Reports no additional complaints Musc Reports no additional complaints Skin/Breast Denies rash and Denies unusual bruising Neuro Reports no additional complaints Psych Reports no additional complaints Endo Reports no additional complaints [place]/Lymph Reports no additional complaints Aller/Immun Reports no additional complaints Results AMB Urinalysis, Automated UA Leukoctes 500 Lena/uL Last Edit by JUANA Antonio on 03/14/23 09:44 3+ Rj Bustos 03/14/23 09:44 UA Nitrite Negative Last Edit by JUANA Antonio on 03/14/23 09:44 UA Urobilinogen 0.2 mg/dL Last Edit by JUANA Antonio on 03/14/23 09:4 4 UA Protein 100 mg/dL Last Edit by JUANA Antonio on 03/14/23 09:44 2+ Rj Bustos 03/14/23 09:44 UA pH 8.0 Last Edit by JUANA Antonio on 03/14/23 09:44 UA Blood 200 Sloan/uL Last Edit by JUANA Antonio on 03/14/23 09:44 3+ Rj Bustos 03/14/23 09:44 UA Specific [place] 1.015 Last Edit by JUANA Antonio on 03/14/23 09: 44 UA Ketone Negative Last Edit by JUANA Antonio on 03/14/23 09:44 UA Bilirubin 0 mg/dL Last Edit by JUANA Antonio on 03/14/23 09:44 UA Glucose 0 mg/dL Last Edit by JUANA Antonio on 03/14/23 09:44 Results Reviewed Results Reviewed: Laboratory Last Values Urine pH (Auto) 8.0 03/14/23 09:26 Specific [place] (Auto) 1.015 03/14/23 09:26 Urine Protein (Auto) 100 mg/dL 03/14/23 09:26 Glucose (UA)(Auto) 0 mg/dL 03/14/23 09:26 Urine Ketones (Auto) Negative 03/14/23 09:26 Urine Blood (Auto) 200 Sloan/uL 03/14/23 09:26 Urine Nitrite (Auto) Negative 03/14/23 09:26 Urine Bilirubin (Auto) 0 mg/dL 03/14/23 09:26 Urine Urobilinogen (Auto) 0.2 mg/dL 03/14/23 09:26 Leukocyte Esterase (Auto) 500 Lena/uL 03/14/23 09:26 Date of Service: 02/28/23 EXAMINATION: NM BONE SCAN OF THE WHOLE BODY CLINICAL INFORMATION: Bladder cancer. Initial staging. COMPARISON: CT of the abdomen and pelvis done on 02/14/2023. FINDINGS: In the head, asymmetric increased activity is present projecting in the region of the left-sided check/maxilla, best seen on the anterior frontal projection on the whole body image. Correlation with follow-up CT scan and/or radiographs as appropriate is recommended for further clarification. In the thoracic cage and upper extremities, mildly increased radiotracer activities at both sternoclavicular and acromioclavicular joints likely represent degenerative and/or arthritic changes. In the spine, scoliotic and mild multilevel degenerative spondylosis related changes are present without any definite suspicious focal abnormality. In the pelvis, no suspicious focal lesion. In the lower extremities, no suspicious focal lesion. No other definite bony abnormalities are noted. The urinary bladder and faint visualization of both kidneys are noted. IMPRESSION: ? 1. Indeterminate asymmetric increased radiotracer activity is present overlying the left-sided cheek/maxillary region, not optimally characterized. Follow-up correlation with CT scan and/or radiographs as appropriate is recommended for further clarification. 2. No other definite focal suspicious osseous abnormality. Incidental note is made of likely degenerative arthritic changes at both acromioclavicular and sternoclavicular joints and scoliotic changes within the spine and superimposed likely degenerative spondylosis. ? ? Diagnosis A.? Bladder, left posterior wall, transurethral resection: -?High grade papillary urothelial carcinoma, non-invasive. - No muscularis propria present. Bladder, transurethral resection/biopsy (A) Procedure: Transurethral resection Tumor site: Left posterior wall Histologic type: Urothelial papillary carcinoma Histologic grade: High grade (with mixed low grade present) Muscularis propria: Not present Extent of invasion: Non-invasive Lymphovascular invasion: Not identified. B.? Bladder, superior wall, transurethral resection:??High grade urothelial carcinoma, invasive into muscularis propria. Bladder, transurethral resection/biopsy (B) Procedure: Transurethral resection Tumor site: Superior wall Histologic type: Urothelial carcinoma Histologic grade: High grade Muscularis propria: Present Extent of invasion: Muscularis propria Lymphovascular invasion: Present Clinical History Bladder tumor Microscopic Description Microscopic sections reviewed. Material Received A. Left posterior wall tumor B. Superior wall bladder tumor Gross Description Received in 2 parts. Part A:? Received in formalin labeled ?left posterior wall tumor? are 3 glistening, semitranslucent, velvety, cauterized, garner-pink fragments of tissue versus tumor measuring 0.3, 0.6 and 0.8 cm in greatest dimension which are submitted in toto along with a 1.3 x 0.8 x 0.4 cm aggregate of opaque, garner fibrinous material, submitted in toto in a single cassette labeled A. Part B:? Received in formalin labeled ?superior wall bladder tumor along with copious friable, cauterized necrotic, pacheco-garner debris and scant red-maroon blood are multiple fragments and chips of extensively cauterized, congested and hemorrhagic, pacheco-garner and garner-pink fibromuscular tissue and pasty, opaque, garner- white debris aggregating 4.0 x 3.0 x 0.5-0.8 cm.? The cauterized tissue fragments are submitted in toto in cassettes B1-B5.? The debris is retained in formalin.? CEDS This case was reviewed intradepartmentally. Assessment & Plan Assessment & Plan (1) Bladder cancer: Code(s): C67.9 - Malignant neoplasm of bladder, unspecified (2) Urinary frequency: Code(s): R35.0 - Frequency of micturition Plan Patient would like to get a second opinion at [facility]. She has an appointment with Dr. Wilson 03/29/2023, and with Dr. Gonzalez on 04/02/2023. ?I have scheduled a 6- month follow up which she may need to change with where she is in the course of therapy. She does want to have chemotherapy done locally with [facility] oncologist. Orders: Orders AMB Urinalysis Automated Today Z13.9 - Encounter for screening, unspecified Patient Instructions: The patient had an opportunity to ask questions regarding treatment plan. All questions were answered. Imaging, Laboratory studies and physical exam results were discussed and reviewed in detail. No major barriers to understanding were identified. The patient expressed understanding and agreement with the above treatment plan.? ? ? The patient is aware they should contact our office by phone for worsening of their current condition or the appearance of new symptoms. Compliance is encouraged with any medications and followup testing that is ordered.? ? ? It is a privilege to be allowed the opportunity to participate in the urologic care of your patient. If you have any questions or concerns regarding treatment for the above conditions please do not hesitate to contact me. The office telephone contact is [phone].? ? ? This note is constructed in part using voice recognition software. While every effort has been made to ensure accuracy coil machine operator errors may have been included.? ? ? Yours sincerely,? ? ? Carrillo Garcia MD? ? Coding Level of Care Code Est Pt Level 4 (17672) Diagnoses Bladder cancer C67.9 Urinary frequency R35.0 Time Spent (min) 33
== END 2023-03-14 10:00 | disposition home or self-care (01) ==
PROVIDERS: PCP Physician Assistant; Visit Provider Urology
DX: C67.4 Malignant neoplasm of posterior wall of bladder (principal); R35.0 Frequency of micturition
CPT/HCPCS: 99214

== ENCOUNTER → 2023-03-14 09:23 | Outpatient (BNVA) | payer MEDICARE, OTHER, SELFPAY | PROVIDERS: PCP Physician Assistant; Visit Provider Urology | DX: C67.9 Malignant neoplasm of bladder, unspecified (principal); R35.0 Frequency of micturition | CPT/HCPCS: 81003; 99212 ==

== ENCOUNTER 2023-03-26 08:46 | Outpatient (AMB) | payer MEDICARE, OTHER, SELFPAY ==
[2023-03-26 09:02] VITALS: BP 123/79; PULSE 77; BMI 25.7
--- NOTE | 2023-03-26 09:02 | A.OFFVIS_ITS ---
Intake Vital Signs 03/26/23 09:02 Height 5 ft 1 in Weight 136 lb BMI 25.7 BP 123/79 Blood Pressure Location Rt brachial Position Sitting Pulse 77 Intake Visit Reasons: Leonard cath placement consult Intake Note: Patient referred for port-a-cath placement. Recently diagnosed with bladder ca. Business Objects Developer Required: No Accompanied by: Self / Same As Patient Allergies No Known Allergies Allergy (Verified 03/26/23 09:04) HPI HPI Comments History of Present Illness Details Patient presents for preop evaluation for Port-A-Cath placement for treatment of her bladder cancer. Chart was reviewed and patient evaluated. [facility] Medical History History of second hand smoke exposure Hx of gastroesophageal reflux (GERD) Hx of hyperlipidemia Hx of osteoporosis Surgical History History of ectopic History of laparoscopic appendectomy Hx of cystoscopy Hx of hiatal hernia Hx of total hysterectomy Family History Mother Tumor of lung Father Bladder cancer Myocardial infarction Social History Household Members: Spouse Housing: House Do you presently have visiting nurse or other home services: No Patient Tobacco Use Status: Former Tobacco user Quit Date: 50 years ago Tobacco use type: Cigarette Years Smoked: 3 Second Hand Smoke Exposure: No service: No Current occupational status: retired and disabled Physical Exam Vital Signs: Last Vital Signs Pulse 77 03/26/23 09:02 BP 123/79 03/26/23 09:02 BMI result Body Mass Index 25.7 Chest Other: Chest sounds bilaterally, HS 1 in 2 GI Other: Abdomen soft, benign Assessment & Plan Assessment & Plan (1) Bladder cancer: Code(s): C67.9 - Malignant neoplasm of bladder, unspecified (2) Admission for fitting of Port-A-Cath: Code(s): Z45.2 - Encounter for adjustment and management of vascular access device Plan Risks, benefits, alternatives of Port-A-Cath placement reviewed with the patient and included but not limited to bleeding, infection, pneumothorax, numbness, pain, scarring, catheter migration and the patient wishes to proceed. All questions were answered. Arrangements were made for this procedure on 03/28 Coding Level of Care Code New Pt Level 5 (27340) Diagnoses Bladder cancer C67.9 Admission for fitting of Port-A-Cath Z45.2
== END 2023-03-26 09:07 | disposition home or self-care (01) ==
PROVIDERS: PCP Physician Assistant; Referring Provider Internal Medicine; Visit Provider Surgery
DX: C67.9 Malignant neoplasm of bladder, unspecified (principal)
CPT/HCPCS: 99204

== ENCOUNTER → 2023-03-26 08:46 | Outpatient (BNVA) | payer MEDICARE, OTHER, SELFPAY | PROVIDERS: PCP Physician Assistant; Referring Provider Internal Medicine; Visit Provider Surgery ==

== ENCOUNTER 2023-03-28 06:33 | Day surgery (SDC) | payer MEDICARE, OTHER, SELFPAY ==
--- NOTE | 2023-03-27 09:32 | HO.ANESPROP2 ---
Documented by User: Darling Reyes NP 03/27/23 09:35 HPI - Anesthesia Eval Consult details Narrative: 72yo F for Port-a-Cath Insertion, fluoroscopy doppler u/s Bladder CA PMFSH Active Problems Active Problems: All Active Problems (Updated 03/20/23 @ 09:46 by Radha Dowd MD) Admission for fitting of Port-A-Cath (Acute) Gross hematuria (Acute) Bladder mass (Acute) Bladder cancer (Acute) Urinary frequency (Acute) Past Medical History Medical History (Updated 03/28/23 @ 07:11 by Jenniffer Olivares RN) Bladder cancer History of second hand smoke exposure Hx of gastroesophageal reflux (GERD) Hx of hyperlipidemia Hx of osteoporosis Scoliosis Family History Family History Mother Tumor of lung Father Bladder cancer Myocardial infarction Surgical History Surgical History (Updated 03/28/23 @ 06:38 by Jenniffer Olivares RN) History of ectopic History of laparoscopic appendectomy Hx of cystoscopy Hx of hiatal hernia Hx of total hysterectomy Social History Social History Household Members: Spouse Housing: House Do you presently have visiting nurse or other home services: No Patient Tobacco Use Status: Former Tobacco user Quit Date: in Tobacco use type: Cigarette Years Smoked: 3 Second Hand Smoke Exposure: No Advance Directives Date on File: 02/19/23 service: No Current occupational status: retired and disabled Meds Allergies Allergy/AdvReac Type Severity Reaction Status Date / Time No Known Allergies Allergy Verified 03/26/23 09:04 Home Medications Medication Instructions Recorded Confirmed Last Taken Type aspirin 81 mg tablet,delayed 81 mg PO DAILY 02/04/23 03/20/23 01/26/23 History release atorvastatin 20 mg tablet 20 mg PO BEDTIME 02/04/23 03/20/23 02/17/23 History calcium citrate 250 mg See Rx Instructions PO TID 02/04/23 03/20/23 02/18/23 History calcium-vitamin D3 5 mcg (200 unit) tablet (Citracal Regular) cholecalciferol (vitamin D3) 50 1,000 unit PO DAILY 02/04/23 03/20/23 02/18/23 History mcg (2,000 unit) capsule fluoxetine 20 mg capsule 20 mg PO DAILY 02/04/23 03/20/23 02/18/23 History hydrochlorothiazide 25 mg tablet 25 mg PO ONCE 02/04/23 03/20/23 02/18/23 History multivitamin 1 tab PO DAILY 02/04/23 03/20/23 02/18/23 History omeprazole 20 mg capsule,delayed 20 mg PO DAILY 02/04/23 03/20/23 02/18/23 History release zoledronic acid 5 mg/100 mL in IV 02/04/23 Unknown History mannitol 5 %-water intravenous piggybck (Reclast) triamcinolone acetonide 55 mcg 2 spray intranasal DAILY 03/26/23 Unknown History nasal spray aerosol (Nasacort) biotin 5,000 mcg chewable tablet 5,000 mcg PO DAILY 03/28/23 03/28/23 Unknown History Exam Exam Date and Time: March 27, 2023 0932 Pertinent Lab Results Pertinent Lab Results: Laboratory Tests 02/20/23 02/20/23 05:42 05:42 WBC 8.5 Hgb 13.1 Hct 39.5 Plt Count 226 Sodium 144 Potassium 3.5 Chloride 109 H Carbon Dioxide 28 BUN 11 Creatinine 0.65 Assessment and Plan Assessment Anesthesia Assessment: Chart Reviewed Documented by User: Mikey Moreno MD 03/28/23 13:33 [facility] Past Medical History Medical History (Updated 03/28/23 @ 07:11 by Jenniffer Olivares RN) Bladder cancer History of second hand smoke exposure Hx of gastroesophageal reflux (GERD) Hx of hyperlipidemia Hx of osteoporosis Scoliosis Family History Family History Mother Tumor of lung Father Bladder cancer Myocardial infarction Family history of problems with anesthesia: No Surgical History Surgical History (Updated 03/28/23 @ 06:38 by Jenniffer Olivares RN) History of ectopic History of laparoscopic appendectomy Hx of cystoscopy Hx of hiatal hernia Hx of total hysterectomy History of Problems with Anesthesia: No Social History Social History Household Members: Spouse Housing: House Do you presently have visiting nurse or other home services: No Patient Tobacco Use Status: Former Tobacco user Quit Date: in Tobacco use type: Cigarette Years Smoked: 3 Second Hand Smoke Exposure: No Advance Directives Date on File: 02/19/23 service: No Current occupational status: retired and disabled Meds Allergies Allergy/AdvReac Type Severity Reaction Status Date / Time No Known Allergies Allergy Verified 03/26/23 09:04 Home Medications Medication Instructions Recorded Confirmed Last Taken Type aspirin 81 mg tablet,delayed 81 mg PO DAILY 02/04/23 03/20/23 01/26/23 History release atorvastatin 20 mg tablet 20 mg PO BEDTIME 02/04/23 03/20/23 02/17/23 History calcium citrate 250 mg See Rx Instructions PO TID 02/04/23 03/20/23 02/18/23 History calcium-vitamin D3 5 mcg (200 unit) tablet (Citracal Regular) cholecalciferol (vitamin D3) 50 1,000 unit PO DAILY 02/04/23 03/20/23 02/18/23 History mcg (2,000 unit) capsule fluoxetine 20 mg capsule 20 mg PO DAILY 02/04/23 03/20/23 02/18/23 History hydrochlorothiazide 25 mg tablet 25 mg PO ONCE 02/04/23 03/20/23 02/18/23 History multivitamin 1 tab PO DAILY 02/04/23 03/20/23 02/18/23 History omeprazole 20 mg capsule,delayed 20 mg PO DAILY 02/04/23 03/20/23 02/18/23 History release zoledronic acid 5 mg/100 mL in IV 02/04/23 Unknown History mannitol 5 %-water intravenous piggybck (Reclast) triamcinolone acetonide 55 mcg 2 spray intranasal DAILY 03/26/23 Unknown History nasal spray aerosol (Nasacort) biotin 5,000 mcg chewable tablet 5,000 mcg PO DAILY 03/28/23 03/28/23 Unknown History Exam Airway Mallampati Class: II TM Dist: >3cm Neck ROM: Full Loose/Missing/Broken Teeth: No Assessment and Plan Assessment Anesthesia Assessment: Anesthesia Plan Discussed Final Anesthetic Review Family History of Problems with Anesthesia: No History of Problems with Anesthesia: No NPO: Yes ASA Class: III Final Preanesthetic Review: No Changes in Pt Med Stat, Meds/Allgs Chart Reviewed, Consent Obtained/Reviewed and Anes Risks/Benef Reviewed Patient Risk: Intermediate Procedure Risk: Low Anesthetic Plan Anesthetic Plan: MAC: Disposition: Standard PACU
--- NOTE | 2023-03-27 20:39 | MHC.SHP ---
Pre-Procedural Eval Section A Date of Service: 03/27/23 The patient is an INPATIENT: No Changes since office visit: No Cold of Flu in the past 2 weeks, No New Medical Problems, No Changes in Medication and No Patient answered all questions The History & Physical has been completed within 30 days and I have reviewed it.: Yes Section B Chief Complaint: Malignant neoplasm of bladder, unspecified Allergies: Allergies Allergy/AdvReac Type Severity Reaction Status Date / Time No Known Allergies Allergy Verified 03/26/23 09:04 Plan I have reviewed the history and physical and performed a pertinent physical examination on my patient. No changes have occurred unless specified. Time Spent With Patient Time: Total time managing care of this patient today ____ minutes.
--- NOTE | ~2023-03-28 | FL_ITS ---
INDICATION: Intraoperative fluoroscopy FLUOROSCOPY: Fluoroscopy Time: 27.9 seconds Dose/air kerma: 5.28 mGy m sq Images saved: COMPARISON: Chest radiograph from FINDINGS: Multiple intraoperative fluoroscopic images are submitted during reported RIGHT single lumen chestport placement. Correlation with operative report. Evaluation is limited secondary to fluoroscopic technique. IMPRESSION: Intra-operative fluoroscopic imaging provided by radiology during reported RIGHT single lumen chestport placement. Please refer to operative note for further information.
[2023-03-28 06:42] VITALS: BMI 25.3
[2023-03-28 07:01] VITALS: BP 125/73; PULSE 64; RESP 15; TEMP 36.1; O2SAT 97
[2023-03-28] MEDS: Lactated Ringers 1,000 ML 100 ML IVCONT (07:09)
--- NOTE | 2023-03-28 08:19 | P.OP_ITS ---
Operative Note Operative Note Date of Service: 03/28/23 Narrative: Preoperative diagnosis: [] IV access for chemotherapy Postop diagnosis: [] Same Procedure [] right internal jugular vein Port-A-Cath placement with Doppler ultrasound guidance and fluoroscopy Surgeon: [] Koby Janitorial Tech: [] BERTRAM Schuler Type of Anesthesia: [] MAC Indication for surgery: [] Chemotherapy Findings: [] Patient brought to the operating room, placed on operative table in supine position, after adequate level of MAC anesthesia was induced, the right neck and chest were prepped and draped in usual sterile fashion. Using Doppler ultrasound guidance, the right internal jugular vein was iden tified. This was cannulated using Seldinger technique, and a wire advanced into the level of the right heart under fluoroscopic guidance. A pocket was fashioned approximately 4 fingerbreadths below the wire and using Bovie. Catheter was placed to the subcutaneous tunnel, connected to a port, and the port secured to the pocket using 3-0 Vicryl sutures. Dilating sheath was then placed over the wire again under fluoroscopic guidance and the wire retrieved. The pre hep Flushed catheter was advanced tothe level of the superior vena cava under fluoroscopic guidance. Peel-away sheath was r emoved without incident. Antegrade and retrograde flow were established easily. Wounds were irrigated, secured hemostasis, and closed using interrupted inverted dermal 3-0 Vicryl sutures followed by Steri-Strips and sterile dressings. Sponge, needle, and instrument counts reported to be correct. Patient tolerated the procedure well and emerged anesthesia stable condition. Postprocedure fluoroscopic film in the OR demonstrated catheter in good position with no pneumothorax. EBL minimal
[2023-03-28 08:30] VITALS: BP 98/60; PULSE 75; RESP 14; TEMP 36.3; O2SAT 95
[2023-03-28 08:45] VITALS: BP 112/54; PULSE 69; RESP 16; TEMP 36.2; O2SAT 97
== END 2023-03-28 09:26 | disposition home or self-care (01) ==
PROVIDERS: PCP Physician Assistant; Visit Provider Surgery
PROC: (CPT 36561; principal; 2023-03-28 07:30)
DX: Z45.2 Encounter for adjustment and management of vascular access device (principal); C67.9 Malignant neoplasm of bladder, unspecified; E78.5 Hyperlipidemia, unspecified; K21.9 Gastro-esophageal reflux disease without esophagitis; M81.0 Age-related osteoporosis without current pathological fracture; Z77.22 Contact with and (suspected) exposure to environmental tobacco smoke (acute) (chronic); Z87.891 Personal history of nicotine dependence; Z79.82 Long term (current) use of aspirin; Z79.899 Other long term (current) drug therapy
CPT/HCPCS: 36561; C1788; J0690; J1643; Q9967

== ENCOUNTER → 2023-03-28 06:33 | Outpatient (BNV) | payer MEDICARE, OTHER, SELFPAY | PROVIDERS: PCP Physician Assistant; Visit Provider Surgery | DX: C67.9 Malignant neoplasm of bladder, unspecified (principal) | CPT/HCPCS: 36561; 76937; 77001 ==

== ENCOUNTER 2023-04-10 21:53 | Emergency (ER) | payer MEDICARE, OTHER, SELFPAY ==
--- NOTE | ~2023-04-10 | XR_ITS ---
EXAMINATION: XR CHEST CLINICAL INFORMATION: Weakness. Immunocompromised. COMPARISON: Chest CT dated 02/28/2023 TECHNIQUE: Frontal view of the chest was obtained. FINDINGS: Right IJ port catheter tip terminates in the proximal SVC near the confluence of the left and right brachiocephalic veins. Calcific atherosclerosis is present in the tortuous thoracic aorta. Small to moderate-sized hiatal hernia. Cardiac silhouette is normal. Pulmonary vasculature is normal. Lungs are clear. No consolidation, pneumothorax, or pleural effusion. Degenerative spondylosis and kyphoscoliosis are present in the thoracic spine. No acute osseous findings on this image. XR/XR chest 1V IMPRESSION: 1. No acute pulmonary findings. 2. Small to moderate-sized hiatal hernia.
[2023-04-10 22:07] VITALS: BP 140/107; PULSE 72; RESP 18; TEMP 36.4; O2SAT 99; BMI 24.4
--- NOTE | 2023-04-10 22:23 | ECG_ITS ---
Test Reason : DIZZINESS Blood Pressure : / mmHG Vent. Rate : 077 BPM Atrial Rate : 077 BPM P-R Int : 152 ms QRS Dur : 084 ms QT Int : 412 ms P-R-T Axes : 007 -20 042 degrees QTc Int : 466 ms Normal sinus rhythm Inferior infarct , age undetermined Cannot rule out Anterior infarct , age undetermined Abnormal ECG No previous ECGs available Referred By: Generic ED Physician Electronically Signed By:STEVEN MADRIGAL
--- NOTE | 2023-04-10 22:53 | ED.DIZZY ---
HPI - Dizziness General Chief Complaint: Dizziness Stated Complaint: chemo reaction? [facility] sent her here Time Seen by Provider: 04/10/23 22:43 Source: patient and family Mode of arrival: ambulatory History of Present Illness HPI Narrative: 73-year-old female who presents with recent start on chemotherapy, dose was on , she has had some nausea and has a known hiatal hernia but yesterday began experiencing weakness in fatigue with some shortness of breath which became far worse today throughout the day she had increasing weakness, fatigue, lightheadedness and states that she was unable to even make her bed. She did lay down for a little while and feels better when lying down but states that became much worse when standing. She also notes that she has had a small amount of upset stomach. Patient is feeling better now and otherwise denies any chest pain. Related Data Home Medications Medication Instructions Recorded Confirmed aspirin 81 mg tablet,delayed 81 mg PO DAILY 02/04/23 04/04/23 release atorvastatin 20 mg tablet 20 mg PO BEDTIME 02/04/23 04/04/23 calcium citrate 250 mg See Rx Instructions PO TID 02/04/23 04/04/23 calcium-vitamin D3 5 mcg (200 unit) tablet (Citracal Regular) cholecalciferol (vitamin D3) 50 1,000 unit PO DAILY 02/04/23 04/04/23 mcg (2,000 unit) capsule fluoxetine 20 mg capsule 20 mg PO DAILY 02/04/23 04/04/23 hydrochlorothiazide 25 mg tablet 25 mg PO ONCE 02/04/23 04/04/23 multivitamin 1 tab PO DAILY 02/04/23 04/04/23 omeprazole 20 mg capsule,delayed 20 mg PO DAILY 02/04/23 04/04/23 release triamcinolone acetonide 55 mcg 2 spray intranasal DAILY 03/26/23 04/04/23 nasal spray aerosol (Nasacort) biotin 5,000 mcg chewable tablet 5,000 mcg PO DAILY 03/28/23 04/04/23 dexamethasone 4 mg tablet PO 04/04/23 ondansetron 8 mg disintegrating mg PO 04/04/23 04/04/23 tablet Previous Rx's Medication Instructions Recorded docusate sodium 100 mg capsule 100 mg PO BID #60 caps 04/04/23 (Colace) polyethylene glycol 3350 17 gram 17 g PO DAILY #30 ea 04/04/23 oral powder packet (Miralax) Allergies Allergy/AdvReac Type Severity Reaction Status Date / Time No Known Allergies Allergy Verified 03/26/23 09:04 Review of Systems Review of Systems: Pertinent positives and negatives as stated in [facility] Past Medical History Source: nursing notes reviewed Medical History (Updated 04/11/23 @ 00:27 by Radha Guzman MD) Bladder cancer Scoliosis History of second hand smoke exposure Hx of gastroesophageal reflux (GERD) Hx of hyperlipidemia Hx of osteoporosis Surgical History (Updated 03/28/23 @ 06:38 by Jenniffer Olivares RN) Hx of cystoscopy History of ectopic History of laparoscopic appendectomy Hx of hiatal hernia Hx of total hysterectomy Family History Family History Mother Tumor of lung Father Bladder cancer Myocardial infarction Social History Social History Household Members: Spouse Housing: House Do you presently have visiting nurse or other home services: No Alcohol intake: never Patient Tobacco Use Status: Former Tobacco user Quit Date: in Tobacco use type: Cigarette Years Smoked: 3 Smoked in Last 30 Days: No Second Hand Smoke Exposure: No Use of substances other than those prescribed or required for medical reasons: No Advance Directives: Yes Advance Directives on File: Yes Advance Directives Date on File: 02/19/23 service: No Current occupational status: retired and disabled Physical Exam Vital Signs: Vital Signs: Last Vital Signs Temp 98.2 F 04/10/23 23:50 Pulse 87 04/10/23 23:53 Resp 18 04/10/23 23:50 BP 106/71 04/10/23 23:53 Pulse Ox 98 04/10/23 23:50 O2 Del Method Room Air 04/10/23 23:50 BMI result Body Mass Index 24.4 VITAL SIGNS: Reviewed. GENERAL: Well developed, well nourished, in no acute distress. HEAD: Normocephalic/atraumatic EYES: PERRLA, EOMI EARS: Ext canals without abnormality NOSE: Nares patent bilateral OROPHARYNX: no oral lesions noted, posterior pharynx clear NECK: Supple, no adenopathy LUNGS: Normal breath sounds. No adventitious sounds or accessory muscle use. SpO2<98> CARDIOVASCULAR: Regular rate and rhythm without noted murmurs ABDOMEN: Soft, non-tender, non-distended with bowel sounds. MUSCULOSKELETAL: No tenderness, deformities, or effusions noted on gross inspection. EXTREMITIES: No cyanosis, clubbing or edema. SKIN: Inspection of the skin reveals no rashes, NEUROLOGIC: Alert and oriented x 4. Strength and sensation to light touch were grossly intact x 4. Medications Administered Generic Name Dose Route Start Last Admin Trade Name Freq PRN Reason Stop Dose Admin Heparin Sodium/Sodium Chloride 25,000 unit in 250 mls @ 0 mls/hr 04/10/23 23:45 04/11/23 00:48 Heparin Sodium,Porcine/1/2ns IVCONT 12 units/kg/hr .Q0M MARY JO 7.02 mls/hr Administration Protocol Per Protocol Discontinued Medications Generic Name Dose Route Start Last Admin Trade Name Freq PRN Reason Stop Dose Admin Aspirin 324 mg 04/11/23 00:08 04/11/23 00:19 Aspirin 81 Mg Tab.Chew PO 04/11/23 00:09 324 mg ONCE ONE Administration Atorvastatin Calcium 80 mg 04/11/23 00:21 04/11/23 00:55 Atorvastatin Calcium 80 Mg Tablet PO 04/11/23 00:22 80 mg ONCE ONE Administration Heparin Sodium (Porcine) 3,500 unit 04/11/23 00:44 04/11/23 00:52 Heparin Sodium,Porcine 5,000 Unit/Ml Vial 60 unit/kg (3500 unit) 04/11/23 00:45 3,500 unit IVPUSH Administration ONCE ONE Ondansetron HCl 4 mg 04/11/23 00:02 04/11/23 00:17 Ondansetron Hcl 4 Mg/2 Ml Vial IVPUSH 04/11/23 00:03 4 mg ONCE ONE Administration Medical Decision Making Medical Decision Making MDM Narrative: 73-year-old female with history and clinical presentation, DDX: PE, low clinical suspicion for intracranial pathology as there are no focal deficits, it does not appear infectious, there is a small possibility of ACS. 2250: 12 lead EKG with normal sinus rhythm, but ST elevations noted in lead 2 without any elevations noted in lead 3/AVF, no abnormal findings in aVL, suspicion for possible J-point elevation V4/V3, but considerable baseline artifact and no comparison EKG. 2344: Received a call from lab who reports that troponin is 1954.9. Repeat EKG obtained, contacted Dr. Mock who recommends [facility] and starting heparin. Pt still chest pain free but having mild lightheadedness. 0004: I discussed case with [facility] interventionalist, Dr Hayes, recommend statin, aspirin, heparin drip and agrees at review of initial EKG with subsequent EKG that this is likely a subacute event but patient will need catheterization tomorrow, she continues to be chest pain-free. 0020: I spoke with [facility] transfer line who will page hospitalist. I reviewed all investigations and hematologic indices negative for low leukocytosis, anemia, thrombocytopenia but there is a noted left shift. Chemistry indices not significant for PRATIBHA, however there are noted liver enzyme elevations, the troponin elevation as mentioned above and otherwise potassium is within normal limits. Viral testing is negative. Urinalysis negative for UTI. 0119: I discussed case with the inpatient hospitalist midlevel provider at [facility] and they are accepting the patient under Dr. Hansen, but will be unable to transfer the patient this evening as there are no telemetry beds. Signed out to DR Sandoval. Differential Diagnosis Differential Diagnoses: The differential diagnosis associated with the presentation includes Please see the discussion above Admission/Observation Consideration of admission/observation: Escalation of care including admission/observation considered Please see the discussion above Consult Healthcare Provider Management of the patient was discussed with: City Marshal Please see the discussion above Lab Data MDM Lab Attestation statement: I reviewed the patient's lab results. Please see the discussion above 04/11/23 00:10 04/10/23 22:57 Labs: Lab Results 04/10/23 04/11/23 Range/Units 22:57 00:10 WBC 7.5 6.4 (4.8-10.8) X10*3/uL RBC 4.92 4.66 (4.20-5.50) X10*6/uL Hgb 14.9 14.3 (12.0-16.0) g/dl Hct 42.9 40.7 (37.0-47.0) % MCV 87.2 87.3 (80.0-98.0) fL MCH 30.3 30.7 (27.0-33.0) pg MCHC 34.7 35.1 H (31.0-35.0) g/dl RDW 12.4 12.6 (11.0-16.0) % Plt Count 212 173 (160-400) X10*3/uL MPV 9.5 9.4 (9.4-12.3) fL Immature Gran % (Auto) 0.5 H (0.0-0.4) % Neut % (Auto) 80.4 H (45-73) % Lymph % (Auto) 16.3 L (20-40) % Bartholomew % (Auto) 2.1 (2-11) % Eos % (Auto) 0.4 (0-4) % Baso % (Auto) 0.3 (0-2) % Lymph # (Auto) 1.2 (1.2-4.9) X10*3/uL Bartholomew # (Auto) 0.2 (0.1-1.2) X10*3/uL Eos # (Auto) 0.0 (0.0-0.4) X10*3/uL Baso # (Auto) 0.0 (0.0-0.2) X10*3/uL Abs Immat Gran (auto) 0.04 H (0.00-0.03) X10*3/uL Absolute Neuts (auto) 6.1 (2.0-8.3) x10*3/uL Absolute Nucleated RBC 0.000 0.000 (0.0-0.012) X10*3/uL Nucleated RBC % (auto) 0.0 0.0 (0.0-0.2) /100WBC PT 11.2 (11.1-13.3) SEC INR 0.9 (0.9-1.1) APTT Cancelled aPTT Heparin Protocol 24.1 L (53-77.9) SEC D-Dimer High Sensitivty 383 NG/ML Sodium 130 L (135-145) mmol/L Potassium 3.5 (3.3-5.1) mmol/L Chloride 96 (96-108) mmol/L Carbon Dioxide 22 (22-29) mmol/L Anion Gap 16 (12-20) BUN 29 H (9-16) mg/dL Creatinine 0.90 (0.5-1.4) mg/dL Estim Creat Clear Calc 45.1 Estimated GFR > 60 Random Glucose 145 H (60-115) mg/dL Calcium 10.3 H (8.4-10.2) mg/dL Total Bilirubin 1.4 H (0.0-1.0) mg/dL AST 39 H (5-31) U/L ALT 36 H (0-31) U/L Alkaline Phosphatase 48 (39-117) U/L Troponin I High Sens 1954.9 H* (<3.5-17.0) ng/L Total Protein 7.0 (6.5-8.0) g/dL Albumin 3.9 (3.5-5.0) g/dL Urine Color Dark Yellow Urine Appearance Turbid Urine pH 6.5 (5.0-9.0) Ur Specific [place] 1.025 (1.005-1.025) Urine Protein 100 (2+) H (Neg-Trace) mg/dL Urine Glucose (UA) Negative (Negative) mg/dL Urine Ketones 40 (Negative) mg/dL Urine Blood Large (3+) H (Negative) Urine Nitrite Negative (Negative) Ur Leukocyte Esterase Large (3+) H (Negative) Urine RBC >20 H (0-2) /HPF Urine WBC >50 H (0-5) /HPF Ur Squamous Epith Cells 6-10 (0-2) /HPF Urine Bacteria 4+ (None Seen) Hyaline Casts 3-5 (0-2) /LPF COVID-19 (TYLOR) Negative (Negative) COVID-19 Clin Com See Note Influenza Type A (DENISE) Negative (Negative) Influenza Type B (DENISE) Negative (Negative) Influenza A & B Note See Note Independent Interpretation I performed an independent interpretation of an: EKG Interpretation: Please see the discussion above for initial EKG 0003: Normal sinus rhythm, septal infarct, HR-74, OH/QRS/QTC is within normal limits. Radiology Impression Discussion of test interpretation with radiology: I have reviewed the radiologist's reading. Radiologist Impression: Please see the discussion above External Record Review External record reviewed: Outpatient record and Prior outpatient labs Chronic Conditions Patient?s care impacted by: Cancer Critical Care Time Critical Care Time Critical Care Time: Yes Total Critical Care Time: 60 Attestation: I personally attest to this time spent taking care of the patient. Discharge Plan Discharge Clinical Impression: Non-ST elevation [place] (NSTEMI) Patient Disposition: Xfer Acute Care Hospital Transfer Details: NSTEMI, interventional Cardiology Prescriptions: No Action ondansetron 8 mg tablet,disintegrating PO dexamethasone 4 mg tablet PO polyethylene glycol 3350 [Miralax] 17 gram Powder In Packet 17 g PO DAILY Qty: 30 4RF docusate sodium [Colace] 100 mg Capsule 100 mg PO BID Qty: 60 4RF biotin 5,000 mcg Tablet,Chewable 5,000 mcg PO DAILY cholecalciferol (vitamin D3) 50 mcg (2,000 unit) capsule 1,000 unit PO DAILY multivitamin Tablet 1 tab PO DAILY aspirin 81 mg tablet,delayed release (DR/EC) 81 mg PO DAILY Hold Instructions: Hold until your Follow up with Dr. Garcia fluoxetine 20 mg capsule 20 mg PO DAILY omeprazole 20 mg capsule,delayed release(DR/EC) 20 mg PO DAILY hydrochlorothiazide 25 mg tablet 25 mg PO ONCE atorvastatin 20 mg tablet 20 mg PO BEDTIME calcium citrate-vitamin D3 [Citracal Regular] 250 mg-5 mcg (200 unit) tablet See Rx Instructions PO TID Rx Instructions: total of calcium 630 mg & vitamin d 500 IU orally 3 times a day; triamcinolone acetonide [Nasacort] 55 mcg aerosol,spray 2 spray intranasal DAILY Rx Instructions: administer into each nostril
[2023-04-10 23:02] LABS: MANUAL DIFF FLAG NO
[2023-04-10 23:04] LABS: Basophils Percent Auto 0.3 % (0-2); Eosinophils Percent Auto 0.4 % (0-4); Hematocrit 42.9 % (37.0-47.0); Hemoglobin 14.9 g/dl (12.0-16.0); Imm Gran Abs Auto 0.04 X10*3/uL (0.00-0.03); Imm Gran Pct Auto 0.5 % (0.0-0.4); Lymphocytes Absolute Auto 1.2 X10*3/uL (1.2-4.9); Lymphocytes Percent Auto 16.3 % (20-40); Mean Corpuscular HGB Conc 34.7 g/dl (31.0-35.0); Mean Corpuscular Hemoglobin 30.3 pg (27.0-33.0); Mean Corpuscular Volume 87.2 fL (80.0-98.0); Mean Platelet Volume 9.5 fL (9.4-12.3); Monocytes Absolute Auto 0.2 X10*3/uL (0.1-1.2); Monocytes Percent Auto 2.1 % (2-11); Neutrophils Absolute Auto 6.1 x10*3/uL (2.0-8.3); Neutrophils Percent Auto 80.4 % (45-73); Platelet Count 212 X10*3/uL (160-400); Red Blood Count 4.92 X10*6/uL (4.20-5.50); Red Cell Distribution Width 12.4 % (11.0-16.0); White Blood Count 7.5 X10*3/uL (4.8-10.8)
[2023-04-10 23:22] LABS: IDNOW Serial# 9DB6401D; Influenza A Negative (Negative); Influenza B2 Negative (Negative)
[2023-04-10 23:23] LABS: COVID-19 Test Negative (Negative); IDNOW Serial# 6674DD1D
[2023-04-10 23:24] LABS: Alanine Aminotransferase 36 U/L (0-31); Albumin Level 3.9 g/dL (3.5-5.0); Alkaline Phosphatase 48 U/L (39-117); Anion Gap 16 (12-20); Aspartate Amino Transferase 39 U/L (5-31); Bilirubin Total 1.4 mg/dL (0.0-1.0); Blood Urea Nitrogen 29 mg/dL (9-16); Calcium 10.3 mg/dL (8.4-10.2); Carbon Dioxide 22 mmol/L (22-29); Chloride 96 mmol/L (96-108); Creatinine Clr Calc Pharmacy 45.1; Estimated Glomerular Filt Rate > 60; Glucose Random 145 mg/dL (60-115); Potassium 3.5 mmol/L (3.3-5.1); Sodium 130 mmol/L (135-145)
[2023-04-10 23:44] LABS: Troponin-I High Sensitivity 1954.9 ng/L (<3.5-17.0)
[2023-04-10 23:50] VITALS: BP 96/63; PULSE 77; RESP 18; TEMP 36.8; O2SAT 98
[2023-04-10 23:51] VITALS: BP 89/50; PULSE 75
[2023-04-10 23:52] VITALS: BP 108/66; PULSE 87
[2023-04-10 23:53] VITALS: BP 106/71; PULSE 87
--- NOTE | 2023-04-11 | MHC.EDTECH ---
Call out to [facility] @ [phone] Will call back
[2023-04-11] MEDS: ondansetron HCL 4 MG/2 ML VIAL IVPUSH (00:17)
--- NOTE | 2023-04-11 00:18 | PC.NURSE ---
pt a&o, second Iv placed, Ekg completed, pt on heart monitor. Notified RN Marguerite.
[2023-04-11] MEDS: Aspirin 81 MG TAB.CHEW 324 MG PO (00:19)
[2023-04-11 00:23] LABS: Hematocrit 40.7 % (37.0-47.0); Hemoglobin 14.3 g/dl (12.0-16.0); Mean Corpuscular HGB Conc 35.1 g/dl (31.0-35.0); Mean Corpuscular Hemoglobin 30.7 pg (27.0-33.0); Mean Corpuscular Volume 87.3 fL (80.0-98.0); Mean Platelet Volume 9.4 fL (9.4-12.3); Platelet Count 173 X10*3/uL (160-400); Red Blood Count 4.66 X10*6/uL (4.20-5.50); Red Cell Distribution Width 12.6 % (11.0-16.0); White Blood Count 6.4 X10*3/uL (4.8-10.8)
[2023-04-11 00:29] LABS: Appearance Urine Turbid; Color Urine Dark Yellow; Glucose Urine UA Negative (Negative); Leukocyte Esterase Urine Large (3+) (Negative); Nitrite Urine Negative (Negative); PH 6.5 (5.0-9.0); Specific Gravity - Urine 1.025 (1.005-1.025); UMIC TRIGGER UACC YES; Urine Blood Large (3+) (Negative); Urine Ketones 40 mg/dL (Negative); Urine Protein 100 (2+) mg/dL (Neg-Trace)
[2023-04-11 00:31] LABS: INTERNATIONAL NORM RATIO 0.9 (0.9-1.1); Prothrombin Time 11.2 SEC (11.1-13.3)
[2023-04-11 00:33] LABS: D Dimer High Sensitivity 383 NG/ML
[2023-04-11 00:34] LABS: Bacteria Urine 4+ (None Seen); PTT Heparin Drip 24.1 SEC (53-77.9); RBC Urine >20 /HPF (0-2); UACC Culture Trigger YES; WBC Urine >50 /HPF (0-5)
[2023-04-11] MEDS: Heparin Sodium,Porcine/1/2NS 25,000 UNIT/250 ML IV.SOLN 7.02 UNIT IVCONT (00:48)
--- NOTE | 2023-04-11 00:48 | PC.NURSE ---
Pt medicated per SEP. Heparin drip started at 12 units/kg/hr.
[2023-04-11] MEDS: Heparin Sodium,Porcine 5,000 UNIT/ML VIAL 3500 UNIT IVPUSH (00:52)
[2023-04-11] MEDS: Atorvastatin Calcium 80 MG TABLET PO (00:55)
--- NOTE | 2023-04-11 01:00 | PC.NURSE ---
This typewriter mechanic assumed care of this Pt at 2330. Pt A&Ox4, reports feeling weak, stuffed uncomfortable feeling to epigastric region, SOB with exertion, dizziness with N/V, and more tired then usual starting at 1800 yesterday. Denies diarrhea, CP, or palpitations at this moment. Pt placed on bedside monitor, Bilateral IV lines placed, blood work collected and sent to lab. SpO2 97% on RA, RR 18, equal non labored breathing, lung sounds clear. Pt updated on plan of care.
--- NOTE | 2023-04-11 01:12 | MHC.EDTECH ---
Call out to [facility] @[phone], spoke to Elena who will page hospitalist for
--- NOTE | 2023-04-11 01:14 | MHC.EDTECH ---
Call out to [facility] transfer line @[phone] for an update on returning phone call from hospitalist.
[2023-04-11 02:00] VITALS: BP 107/68; PULSE 81; RESP 18; O2SAT 97
[2023-04-11 02:25] VITALS: BP 102/69; PULSE 75; RESP 17; TEMP 36.3; O2SAT 97
--- NOTE | 2023-04-11 05:44 | MHC.EDTECH ---
Call out to [facility] Transfer line for an update on bed assignment. Spoke to Mireya who informed me a bed will be available once discharges are made in [facility].
[2023-04-11 06:00] VITALS: BP 100/65; PULSE 76; RESP 17; TEMP 36.9; O2SAT 97
--- NOTE | 2023-04-11 06:22 | MHC.EDTECH ---
[facility] transfer line called @[phone] with bed assignment to [facility] MM5 BED 33 NURSE TO NURSE [phone]
[2023-04-11 06:34] LABS: Hematocrit 39.7 % (37.0-47.0); Hemoglobin 14.2 g/dl (12.0-16.0); Mean Corpuscular HGB Conc 35.8 g/dl (31.0-35.0); Mean Corpuscular Hemoglobin 31.1 pg (27.0-33.0); Mean Corpuscular Volume 87.1 fL (80.0-98.0); Mean Platelet Volume 9.5 fL (9.4-12.3); Platelet Count 183 X10*3/uL (160-400); Red Blood Count 4.56 X10*6/uL (4.20-5.50); Red Cell Distribution Width 12.5 % (11.0-16.0); White Blood Count 4.2 X10*3/uL (4.8-10.8)
--- NOTE | 2023-04-11 06:40 | PC.NURSE ---
Report to Vashti MAN at [facility]
[2023-04-11 06:41] LABS: Prothrombin Time 11.7 SEC (11.1-13.3)
[2023-04-11 06:43] LABS: PTT Heparin Drip 51.2 SEC (53-77.9)
--- NOTE | 2023-04-11 06:45 | PC.NURSE ---
Report to Alea gonzalez, pt to [facility].
--- NOTE | 2023-04-11 07:56 | ECG_ITS ---
Test Reason : REPEAT Blood Pressure : / mmHG Vent. Rate : 074 BPM Atrial Rate : 074 BPM P-R Int : 146 ms QRS Dur : 084 ms QT Int : 410 ms P-R-T Axes : -20 -27 135 degrees QTc Int : 455 ms Poor data quality, interpretation may be adversely affected Normal sinus rhythm Septal infarct (cited on or before 10-APR-2023) Abnormal ECG When compared with ECG of 10-APR-2023 22:50, Serial changes of evolving Septal infarct Present Referred By: Madeleine Sandoval Electronically Signed By:STEVEN MADRIGAL
== END 2023-04-11 06:47 | disposition short-term general hospital (02) ==
PROVIDERS: Student in an Organized Health Care Education/Training Program; Emergency Provider Emergency Medicine; PCP Family Medicine
DX: I21.4 Non-ST elevation (NSTEMI) myocardial infarction (principal); R42 Dizziness and giddiness; R06.02 Shortness of breath; R94.31 Abnormal electrocardiogram [ECG] [EKG]; D84.9 Immunodeficiency, unspecified; Z20.822 Contact with and (suspected) exposure to COVID-19; Z20.828 Contact with and (suspected) exposure to other viral communicable diseases; Z79.899 Other long term (current) drug therapy; Z87.891 Personal history of nicotine dependence
CPT/HCPCS: 36415; 71045; 80053; 81001; 84484; 85025; 85027; 85379; 85610; 85730; 87086; 87502; 87635; 93005; 96374; 96375; 99285; J1643; J2405

== ENCOUNTER 2023-04-25 12:59 | Outpatient (REF) | payer MEDICARE, OTHER, SELFPAY ==
--- NOTE | ~2023-04-25 | FL_ITS ---
Leonard catheter check INDICATIONS: The patient is status post port placement on 03/28/2023. Inability to aspirate at the time of chemotherapy infusion After informed and written consent was obtained an official timeout was performed immediately prior to the procedure. PROCEDURE: Under fluoroscopic evaluation it is noted that the port catheter has pulled back into the soft tissues just cephalad to the medial aspect of the clavicle. The tip of catheter is superimposed upon the proximal clavicle. Upon injection of contrast through the catheter with the access needle already in place which was accessed by the oncology nurses demonstrates that the needle is in good position. The contrast flows into the port and catheter with opacification of the right innominate and jugular veins with flow of contrast into the SVC. The tip of the catheter is in the superior most aspect of the SVC. There is a minimal amount of contrast extending into the medial aspect of the wall of the vessel. The catheter needs to be repositioned or a new port placed. FL/FL fluoroscopy <1hr IMPRESSION: The catheter has pulled back into the soft tissues at the base of the neck. The tip of the catheter is in the superior most aspect of the SVC and is approximately 1 cm within the vein. Minimal extravasation of contrast noted.
== END 2023-04-25 13:00 | disposition home or self-care (01) ==
LOC: HO.XRAY 12:59
PROVIDERS: PCP Family Medicine; Visit Provider Internal Medicine Medical Oncology
DX: Z45.2 Encounter for adjustment and management of vascular access device (principal)
CPT/HCPCS: 76000

== ENCOUNTER → 2023-04-25 13:02 | Outpatient (BNV) | payer MEDICARE, OTHER, SELFPAY | PROVIDERS: PCP Family Medicine; Visit Provider Radiology Vascular & Interventional Radiology | DX: T82.524A Displacement of infusion catheter, initial encounter (principal) | CPT/HCPCS: 76000 ==

== ENCOUNTER 2023-04-29 12:35 | Outpatient (AMB) | payer MEDICARE, OTHER, SELFPAY ==
[2023-04-29 12:48] VITALS: BP 111/64; PULSE 72; BMI 25.3
--- NOTE | 2023-04-29 12:48 | A.OFFVIS_ITS ---
Intake Vital Signs 04/29/23 12:48 Height 5 ft 1 in Weight 134 lb BMI 25.3 BP 111/64 Blood Pressure Location Rt brachial Position Sitting Pulse 72 Intake Visit Reasons: boil left mid chest Intake Note: Patient was referred for abscess on Lt mid chest X1m. Patient almost finished cephalexin course. Reports site much improved. Patient wants to address port a cath malfunctioning. Was unable to get txt. Fluoroscopy on 04-25-23 confirmed port not in vein. Director Diabetes Required: No Accompanied by: Self / Same As Patient Allergies No Known Allergies Allergy (Verified 04/29/23 12:53) HPI HPI Comments History of Present Illness Details Patient presents for 1. Resolving carbuncle of the anterior mid chest 2. Non aspirating Port-A-Cath 1 Carbuncle/infected sebaceous cyst has been present for least 1 weeks time. She is patient's current antibiotics and sent the symptoms have improved markedly. 2 patient was recently evaluated because the port was unable to be aspirated for blood post able to infuse. This was evaluated and concern is that the catheter is up against the vein wall. [facility] Medical History Bladder cancer Scoliosis History of second hand smoke exposure Hx of gastroesophageal reflux (GERD) Hx of hyperlipidemia Hx of osteoporosis Surgical History Hx of cystoscopy History of ectopic History of laparoscopic appendectomy Hx of hiatal hernia Hx of total hysterectomy Family History Mother Tumor of lung Father Bladder cancer Myocardial infarction Social History Household Members: Spouse Housing: House Do you presently have visiting nurse or other home services: No Alcohol intake: never Patient Tobacco Use Status: Former Tobacco user Quit Date: in Tobacco use type: Cigarette Years Smoked: 3 Second Hand Smoke Exposure: No Advance Directives Date on File: 02/19/23 service: No Current occupational status: retired and disabled Physical Exam Vital Signs: Last Vital Signs Pulse 72 04/29/23 12:48 BP 111/64 04/29/23 12:48 BMI result Body Mass Index 25.3 Chest Other: Chest breath sounds bilaterally, HS 1 and 2, resolving carbo cool lower mid chest. No evidence of fluctuance or abscess. Under sterile technique with alcohol and Betadine prep, port was able to be flushed but unable to be aspirated as was described. Several maneuvers including turning the neck and pulling on a port were unable to achieve aspiration. Assessment & Plan Assessment & Plan (1) Admission for fitting of Port-A-Cath: Code(s): Z45.2 - Encounter for adjustment and management of vascular access device (2) Carbuncle and furuncle of trunk: Code(s): L02.239 - Carbuncle of trunk, unspecified; L02.229 - Furuncle of trunk, unspecified Plan 1. Continue current therapy of completing antibiotic course and warm compresses to the resolving carbuncle. 2. For Port-A-Cath revision/possible replacement for tomorrow in the OR as an add on. Risks, benefits, alternatives of the procedure reviewed the patient included but not limited to bleeding, pneumothorax, infection, recurrence of catheter migration, numbness, pain, scarring and the patient wishes to proceed. All questions were answered. Arrangements will be made as noted. Coding Level of Care Code Est Pt Level 3 (50030) Global (80472) Diagnoses Admission for fitting of Port-A-Cath Z45.2 Carbuncle and furuncle of trunk L02.239; L02.229
== END 2023-04-29 13:27 | disposition home or self-care (01) ==
PROVIDERS: PCP Family Medicine; Visit Provider Surgery
DX: Z45.2 Encounter for adjustment and management of vascular access device (principal); L02.239 Carbuncle of trunk, unspecified; L02.229 Furuncle of trunk, unspecified
CPT/HCPCS: 99024; 99213

== ENCOUNTER → 2023-04-29 12:35 | Outpatient (BNVA) | payer MEDICARE, OTHER, SELFPAY | PROVIDERS: PCP Family Medicine; Visit Provider Surgery | DX: L02.233 Carbuncle of chest wall (principal); L02.223 Furuncle of chest wall; Z45.2 Encounter for adjustment and management of vascular access device | CPT/HCPCS: 99212 ==

== ENCOUNTER 2023-04-30 10:37 | Day surgery (SDC) | payer MEDICARE, OTHER, SELFPAY ==
[2023-04-30] VITALS (8 sets, daily range): BP systolic 113–147; BP diastolic 67–78; PULSE 75–89; RESP 16–18; TEMP 36.1–36.6; O2SAT 96–98; BMI 25.3
--- NOTE | ~2023-04-30 | XR_ITS ---
EXAMINATION: XR CHEST CLINICAL INFORMATION: Port placement COMPARISON: Chest x-ray April 10, 2023 TECHNIQUE: Frontal view of the chest was obtained. FINDINGS: Cardiac silhouette is normal in size. Interval placement of new right-sided subclavian port with catheter tip terminating within the mid to distal SVC. There is no pneumothorax identified. The lungs are adequately aerated. No pleural effusion. Scoliotic and degenerative changes of the spine. Honey hernia again noted. XR/XR chest 1V IMPRESSION: 1. No acute pulmonary pathology. 2. No pneumothorax status post port placement.
[2023-04-30] MEDS: Lactated Ringers 1,000 ML 50 ML IVCONT (11:10)
--- NOTE | 2023-04-30 14:44 | P.CONAN_ITS ---
HPI - Anesthesia Eval Consult details Narrative: maya cathbreplacement / revision [facility] Active Problems Active Problems: All Active Problems (Updated 04/19/23 @ 10:10 by Radha Dowd MD) Carbuncle and furuncle of trunk (Acute) Admission for fitting of Port-A-Cath (Acute) Urinary frequency (Acute) Bladder cancer (Acute) Bladder mass (Acute) Gross hematuria (Acute) Past Medical History Medical History Bladder cancer Scoliosis History of second hand smoke exposure Hx of gastroesophageal reflux (GERD) Hx of hyperlipidemia Hx of osteoporosis Family History Family History Mother Tumor of lung Father Bladder cancer Myocardial infarction Family history of problems with anesthesia: No Surgical History Surgical History Hx of cystoscopy History of ectopic History of laparoscopic appendectomy Hx of hiatal hernia Hx of total hysterectomy History of Problems with Anesthesia: No Social History Social History Household Members: Spouse Housing: House Do you presently have visiting nurse or other home services: No Alcohol intake: never Patient Tobacco Use Status: Former Tobacco user Quit Date: in Tobacco use type: Cigarette Years Smoked: 3 Second Hand Smoke Exposure: No Are you DNR?: No Advance Directives: No Advance Directives Information Provided: Yes Advance Directives Date on File: 02/19/23 service: No Current occupational status: retired and disabled Meds Allergies Allergy/AdvReac Type Severity Reaction Status Date / Time No Known Allergies Allergy Verified 04/29/23 12:53 Active Medications: Current Medications Lactated Ringer's (Lr) 1,000 mls @ 50 mls/hr IVCONT .Q20H MARY JO Last Admin: 04/30/23 11:10 Dose: 50 mls/hr Home Medications Medication Instructions Recorded Confirmed Last Taken Type aspirin 81 mg tablet,delayed 81 mg PO DAILY 02/04/23 04/25/23 04/29/23 History release atorvastatin 20 mg tablet 20 mg PO BEDTIME 02/04/23 04/25/23 02/17/23 History calcium citrate 250 mg See Rx Instructions PO TID 02/04/23 04/25/23 02/18/23 History calcium-vitamin D3 5 mcg (200 unit) tablet (Citracal Regular) cholecalciferol (vitamin D3) 50 1,000 unit PO DAILY 02/04/23 04/25/23 02/18/23 History mcg (2,000 unit) capsule fluoxetine 20 mg capsule 20 mg PO DAILY 02/04/23 04/25/23 02/18/23 History multivitamin 1 tab PO DAILY 02/04/23 04/25/23 02/18/23 History omeprazole 20 mg capsule,delayed 20 mg PO DAILY 02/04/23 04/25/23 02/18/23 History release triamcinolone acetonide 55 mcg 2 spray intranasal DAILY 03/26/23 04/25/23 Unk nown History nasal spray aerosol (Nasacort) biotin 5,000 mcg chewable tablet 5,000 mcg PO DAILY 03/28/23 04/25/23 Unknown History dexamethasone 4 mg tablet 4 mg PO BID 04/04/23 04/25/23 Unknown History ondansetron 8 mg disintegrating 8 mg PO TID PRN Nausea 04/04/23 04/25/23 04/30/23 08:00 History tablet metoprolol succinate 25 mg 25 mg PO DAILY 04/19/23 04/25/23 Unknown History tablet,extended release 24 hr Exam Exam Date and Time: April 30, [id number] Height,Weight and Vital Signs: Height 5 ft 1 in Weight 60.781 kg Last Vital Signs Temp 97 F 04/30/23 10:44 Pulse 75 04/30/23 10:44 Resp 18 04/30/23 10:44 BP 113/73 04/30/23 10:44 Pulse Ox 97 04/30/23 10:44 O2 Del Method Room Air 04/30/23 10:44 Airway Mallampati Class: III (receeding chin ) TM Dist: <=3cm Heart: rrr Lungs: cta Assessment and Plan Assessment Anesthesia Assessment: Anesthesia Plan Discussed and Chart Reviewed Final Anesthetic Review Family History of Problems with Anesthesia: No History of Problems with Anesthesia: No NPO: Yes ASA Class: III and Emergency Final Preanesthetic Review: No Changes in Pt Med Stat, Meds/Allgs Chart Reviewed, Consent Obtained/Reviewed and Anes Risks/Benef Reviewed Patient Risk: Intermediate Procedure Risk: Intermediate Anesthetic Plan Anesthetic Plan: GA Disposition: Standard PACU
--- NOTE | 2023-04-30 15:52 | W.PM.OPN ---
Operative Note Operative Note Date of Service: 04/30/23 Narrative: Preoperative diagnosis: [] Nonfunctioning right internal jugular vein Port-A-Cath Postop diagnosis: [] Same Procedure [] attempted revision and removal of right internal jugular vein Port-A-Cath and placement of right subclavian vein Port-A-Cath. Doppler ultrasound guidance, fluoroscopy. Surgeon: [] [employer] Estimator: [] Ganga Type of Anesthesia: [] LMA Indication for surgery: [] Nonfunctioning right IJ Port-A-Cath. Attempted repositioning by advancing and retracting the catheter was unsuccessful, using fluoroscopy and ultrasonography for guidance. Port was removed and new right subclavian vein port was placed. Findings: [] Patient brought to the operating room, placed on table supine position, after adequate level of LMA anesthesia was induced, the patient's bilateral neck and chest areas were prepped and draped in usual sterile fashion. Using incision from the prior port placement pocket, this carried down through skin, subcutaneous tissue, with the port was identified. The stay sutures of Vicryl were cut and the port was advanced proximally, advancing the catheter further into the internal jugular vein where the port could be infused but but unable to aspirate blood. Next the catheter was placed more distally into the pocket with similar results of being able to infuse but not able to retrieve blood. It was then decided to remove this port. Patient was placed in Trendelenburg position, right arm pulled inferiorly, and right subclavian vein was uneventfully cannulated and a wire advanced to the level of the superior vena cava under fluoroscopic guidance. A pocket was fashioned at the cannulation site, and a dilating sheath was placed over the wire and the wire retrieved. A Port-A-Cath was placed in the formed pocket and secured using 3-0 Vicryl sutures. Pre flushed and pre measured catheter was advanced through the dilating sheath to the level of the distal superior vena cava under fluoroscopic guidance. Peel-away sheath was removed without incident. Antegrade and retrograde flow were easily established. Both wounds were irrigated, secured hemostasis, and closed using interrupted inverted dermal 3-0 Vicryl sutures followed by Steri-Strips and sterile dressings. Wounds were infiltrated 0.5% Marcaine/1% lidocaine at completion. The port was once again accessed to assure its patency and antegrade and retrograde flow were easily established. Sponge, needle, instrument counts reported correct. Patient tolerated the procedure well and emerged anesthesia stable condition. EBL minimal. Postprocedure chest x-ray in the operating room demonstrated catheter in good position with no pneumothorax.
[2023-04-30] MEDS: oxyCODONE HCl Immed Release 5 MG TABLET PO (16:07)
== END 2023-04-30 16:57 | disposition home or self-care (01) ==
PROVIDERS: PCP Physician Assistant; Visit Provider Surgery
PROC: (CPT 36561; principal; 2023-04-30 12:30)
DX: T82.594A Other mechanical complication of infusion catheter, initial encounter (principal); Y82.8 Other medical devices associated with adverse incidents; L02.233 Carbuncle of chest wall; C67.9 Malignant neoplasm of bladder, unspecified; Z77.22 Contact with and (suspected) exposure to environmental tobacco smoke (acute) (chronic); K21.9 Gastro-esophageal reflux disease without esophagitis; E78.5 Hyperlipidemia, unspecified; M81.0 Age-related osteoporosis without current pathological fracture; Z87.891 Personal history of nicotine dependence; Z79.82 Long term (current) use of aspirin; Z79.899 Other long term (current) drug therapy; Z98.890 Other specified postprocedural states
CPT/HCPCS: 36561; 36590; 71045; C1788; J0690; J1100; J1643; J2405; J3010

== ENCOUNTER → 2023-04-30 10:37 | Outpatient (BNV) | payer MEDICARE, OTHER, SELFPAY | PROVIDERS: PCP Physician Assistant; Visit Provider Surgery | DX: Z45.2 Encounter for adjustment and management of vascular access device (principal) | CPT/HCPCS: 36561; 36590; 76937; 77001 ==

== ENCOUNTER 2023-05-08 11:19 | Outpatient (REF) | payer MEDICARE, OTHER, SELFPAY | END 2023-05-08 11:20 | disposition home or self-care (01) | LOC: HO.LAB 11:19 | PROVIDERS: PCP Physician Assistant; Visit Provider Internal Medicine | DX: N39.0 Urinary tract infection, site not specified (principal); C67.9 Malignant neoplasm of bladder, unspecified | CPT/HCPCS: 81001; 87086 ==

== ENCOUNTER 2023-06-28 10:16 | Outpatient (REF) | payer MEDICARE, OTHER, SELFPAY ==
--- NOTE | ~2023-06-28 | US_ITS ---
EXAMINATION: US VENOUS WITH DOPPLER UPPER EXTREMITY, RIGHT CLINICAL INFORMATION: Known DVT, follow-up COMPARISON: None available. TECHNIQUE: Ultrasound of the upper extremity is performed using compression sonography and color and pulse Doppler flow with assessment of augmentation of flow. There is also imaging and Doppler assessment of the jugular and subclavian veins. Spectral analysis with color-flow imaging is performed. FINDINGS: There is echogenic occlusive clot in the right internal jugular vein, the rest of visualized veins in the right upper extremity including right subclavian, axillary, brachial, cephalic and ulnar vein as well as the radial vein and basilic are well visualized with normal vascular flow. Veins are compressible. 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
== END 2023-06-28 10:17 | disposition home or self-care (01) ==
LOC: HO.US 10:16
PROVIDERS: PCP Physician Assistant; Visit Provider Internal Medicine
DX: I82.621 Acute embolism and thrombosis of deep veins of right upper extremity (principal)
CPT/HCPCS: 93971

== ENCOUNTER 2023-10-15 07:40 | Outpatient (REF) | payer MEDICARE, OTHER, SELFPAY ==
--- NOTE | ~2023-10-15 | PE_ITS ---
EXAMINATION: Fluorine-18 FDG PET/CT Scan CLINICAL INDICATION: Subsequent treatment management. Malignant neoplasm of bladder, question metastases. PROCEDURE: 94 minutes following the intravenous administration of 14.0 mCi of fluorine 18 FDG, images from the base of the skull to the mid thighs were obtained using a combined PET/CT scanner with CT scan based attenuation correction. No oral contrast was administered. No intravenous contrast was administered. Transverse, coronal, sagittal, and volume reconstruction projections were obtained. The patient's blood glucose as determined by a finger stick, was 143 mg/dl immediately prior to injection. Total CT exam dose-length product 413.62 mGy-cm * These CT images were obtained using dose optimization techniques as appropriate, variously including the following: Automated exposure control * Adjustment of mA and/or kV according to patient size (this includes techniques or standardized protocols for targeted exams where dose is matched to indication/reason for exam; i.e. extremities or head) * Use of iterative reconstruction technique COMPARISON: No previous PET/CT scan is available for comparison. CT scan of the chest dated 02/28/[address] scan of the abdomen and pelvis dated 02/14/2023 are available for comparison. FINDINGS: NECK AND VISUALIZED HEAD: No foci of abnormal FDG activity are noted. The distribution of FDG activity is physiological. There is no cervical lymphadenopathy. No foci of abnormal FDG activity are noted. The distribution of FDG activity is physiological. There is no cervical lymphadenopathy. THORAX: There are bilateral mildly FDG avid posterior lower lobe groundglass opacities, more prominently on the left. The most intense FDG activity is in the posterolateral aspect of the left lower lobe and shows SUVmax 4.0, slice 78/223. These opacities were not present on the prior diagnostic CT scan of the chest dated 02/28/2023. Several 0.2 to 0.3 cm pulmonary nodules visualized on the diagnostic 02/28/2023 CT scan are not apparent on these nondiagnostic CT images, and all of those are much too small to be characterized on the FDG PET images. No suspicious pulmonary nodules are visualized. There is no pleural or pericardial fluid, or pneumothorax. There is no mediastinal, supraclavicular, or axillary lymphadenopathy. A right-sided chest tube with subclavian catheter terminating in the superior vena cava is noted. ABDOMEN AND PELVIS: The patient is status post cystectomy and ileal loop urinary drainage to an ostomy in the right lower quadrant. There is mild FDG activity throughout the remainder the gastrointestinal tract, with no additional suspicious focal components. There is diverticulosis without evidence of diverticulitis. The hollow viscera are otherwise unremarkable. Several FDG avid left inguinal lymph nodes are present, the most intense showing SUVmax 5.1, slice 184/223 corresponding to a lymph node on the CT images measuring 2.2 x 1.2 cm in largest transverse dimensions. An additional mildly FDG avid subcentimeter left external iliac lymph node is present, slice 177/223, and in another slice 173/223. An additional subcentimeter FDG avid left common iliac lymph node is present at the L5 level, slice 151/223. There are few additional small subcentimeter FDG avid left para-aortic lymph node superior to this, and more superiorly a subcentimeter aortocaval lymph node is present at the L3 level, slice 130/223. No additional retroperitoneal, mesenteric, pelvic or inguinal lymphadenopathy is present. The liver, gallbladder, and spleen are unremarkable. Bilateral extrarenal pelves are present, but the kidneys are otherwise unremarkable. The adrenal glands and pancreas are unremarkable. MUSCULOSKELETAL: There is abnormal FDG activity in the left acetabulum including diffusely in the posterior column, showing SUVmax 5.0, slice 191/223. No definite CT abnormalities are present in this region. There is a mild thoracolumbar scoliosis with lumbar convexity to the left. There is a small focus of mildly increased FDG activity in the T6 vertebral body, slice 66/223 and there is a moderately intense focus of increased FDG activity present in the right lamina of C2 showing SUVmax 6.7, slice 28/223, with no corresponding CT abnormality. No additional osseous lesions are visualized. There are no additional suspicious sclerotic or lytic lesions visualized. VASCULAR: Diffuse vascular calcifications including coronary. Reference SUVmax Levels: Mediastinal Blood Pool: 1.8, Slice 74/223 Liver: 3.0, Slice 109/223 PET/PET CT fusion skull to thigh IMPRESSION: 1. The patient is status post total cystectomy and ileal conduit formation draining to a right lower quadrant ostomy. 2. Multiple FDG avid lymph nodes are present in the left groin, pelvis, and retroperitoneum, as described above, strongly suspicious for malignant metastases. 3. A few FDG avid osseous lesions are present, without CT correlate, most prominently in the left acetabulum but suspicious lesions are also present in the T6 vertebral body and right lamina of C2. 4. No additional abnormalities strongly suspicious for other metastatic or malignant lesions are noted. 5. Bilateral, left greater than right mildly FDG avid groundglass opacities are noted in the lower lobes of of the lungs. These are nonspecific but most likely due to inflammatory pneumonitis. Correlation with a diagnostic CT scan of the chest may be of additional clinical value, if clinically indicated. 6. Diffuse vascular calcifications including coronary.
== END 2023-10-15 07:41 | disposition home or self-care (01) ==
LOC: HO.PET 07:40
PROVIDERS: PCP Physician Assistant; Visit Provider Internal Medicine
DX: Z13.89 Encounter for screening for other disorder (principal)

== ENCOUNTER 2023-10-16 09:34 | Outpatient (REF) | payer MEDICARE, OTHER, SELFPAY ==
--- NOTE | ~2023-10-16 | XR_ITS ---
EXAMINATION: XR HIP, LEFT CLINICAL INFORMATION: Hip pain COMPARISON: [facility] 07/19/2023 TECHNIQUE: Two views of the left hip. FINDINGS: No acute fracture or dislocation. Mild osteoarthritis of the hip with small osteophytes. Soft tissues are unremarkable. Surgical clips in the pelvis. XR/XR hip LT min 2V IMPRESSION: Mild degenerative changes of the left hip.
== END 2023-10-16 09:35 | disposition home or self-care (01) ==
LOC: HO.XRAY 09:34
PROVIDERS: PCP Physician Assistant; Referring Provider Internal Medicine; Visit Provider Anesthesiology
DX: M16.12 Unilateral primary osteoarthritis, left hip (principal); C67.9 Malignant neoplasm of bladder, unspecified
CPT/HCPCS: 73502; 99202

== ENCOUNTER 2023-10-16 09:34 | Outpatient (AMB) | payer MEDICARE, OTHER, SELFPAY ==
[2023-10-16 10:32] VITALS: BP 124/60; PULSE 70; RESP 16; O2SAT 100; BMI 21.4
--- NOTE | 2023-10-16 10:32 | MHC.OFFVIS ---
Intake Vital Signs 10/16/23 10:32 Height 5 ft 1 in Weight 113 lb 6 oz BMI 21.4 BP 124/60 Blood Pressure Location Lt brachial Position Sitting Respiration 16 Pulse 70 Pulse Source Pulse Oximeter Pulse Oximetry (%) 100 Oxygen Delivery Method Room Air Intake Visit Reasons: PAIN CONTROL/REF BY DR. PEREIRA Allergies No Known Allergies Allergy (Verified 08/19/23 09:19) HPI HPI Comments History of Present Illness Details Karmen is very pleasant 73 years old female who presents in my office with complains on pain in the right groin with radiation onto the inner thigh and anterior and medial surface of the left hip with rare radiation of the pain below the level of the knee into the left lower leg to the level of the ankle. This patient is suffering from bladder cancer. She was diagnosed in 2022. TURBT in January 2023. She has history osteoporosis and on Reclast she is managed by phlebotomist lab assistant. She reports remote history of smoking she reports many years of secondhand smoking. Denies aniline dye and other nephrotoxic compounds exposure. She is taking to control her pain 20 mg of oxycodone 4 times a day she is on fentanyl patch 50 micro g an hour as well as she is taking to control her pain 400 mg of ibuprofen every 6 hours. She still reports severe pain 10/10 in the painful areas. She also reports allodynia on the anterior lateral surface and anterior medial surface of the hip. She currently was diagnosed with lymph nodes metastasis in the abdominal cavity, she was recently started on new course of chemotherapy and Dr. Pereira her oncologist thinks that she has more than 6 months to live. Past medical history significant for bladder cancer GERD history of takotsubo syndrome with current ejection fraction of 30% she is currently on Eliquis. Her past surgical history significant for hysterectomy and bladder resection with urostomy placement her urostomy on the right side. Social history she denies smoking cigarettes drinking alcohol denies recreational drugs. She is retired individual. [facility] Medical History Bladder cancer Scoliosis History of second hand smoke exposure Hx of gastroesophageal reflux (GERD) Hx of hyperlipidemia Hx of osteoporosis Surgical History Hx of cystoscopy History of ectopic History of laparoscopic appendectomy Hx of hiatal hernia Hx of total hysterectomy Family History Mother Tumor of lung Father Bladder cancer Myocardial infarction Social History (Updated 08/19/23 @ 09:19 by Fernanda Barkley MA) Household Members: None Housing: House Do you presently have visiting nurse or other home services: No Alcohol intake: never Patient Tobacco Use Status: Former Tobacco user Quit Date: in Tobacco use type: Cigarette Years Smoked: 3 Second Hand Smoke Exposure: No Advance Directives Date on File: 02/19/23 service: No Current occupational status: retired and disabled Review of Systems Const Reports fatigue, Reports lethargy and Reports weakness Eyes Reports no additional complaints ENT Reports no additional complaints and Reports Normal hearing present Card Reports as per HPI and Denies dyspnea Resp Denies cough and Denies dyspnea GI Reports no additional complaints Reports as per HPI Musc Reports as per HPI Skin/Breast Denies rash and Denies unusual bruising Neuro Reports no additional complaints, Reports Normal hearing present, Denies Abnormal speech present, Denies Sensory deficit (Neuro) and Reports weakness Psych Reports no additional complaints Endo Reports no additional complaints and Reports fatigue Darien/Lymph Reports no additional complaints Aller/Immun Reports no additional complaints Physical Exam Vital Signs: Last Vital Signs Pulse 70 10/16/23 10:32 Resp 16 10/16/23 10:32 BP 124/60 10/16/23 10:32 Pulse Ox 100 10/16/23 10:32 Oxygen Delivery Method Room Air 10/16/23 10:32 BMI result Body Mass Index 21.4 Const General: no acute distress, tired appearing and well groomed Nutritional Appearance: thin and underweight Orientation/consciousness: patient oriented x3 Eyes General: appearance normal, both eyes and all related structures Pupils: Equal, round and reactive pupils present EOM: EOMs intact bilaterally Neck Neck: Yes full ROM Chest Chest palpation & inspection: normal inspection of the chest Resp Effort & Inspection: normal respiratory effort, able to speak in complete sentences, normal respiratory pattern, no audible wheezes and no cough Cardio Jugular venous distension: no JVD GI Other: There is a urostomy bag connected to urostomy in the right lower quadrant. Inspection: No normal to inspection, No abdominal wall ecchymosis, No distended and Yes incision (Midline incision from symphysis pubis to umbilicus.) Palpation (GI): Soft to palpation, No hepatosplenomegaly present, no masses, No Ascites present and No Rebound tenderness present Neuro General: patient oriented x3 and gait normal Cranial nerves: Yes CN's II-XII intact bilaterally, Yes Equal, round and reactive pupils present, Yes Normal hearing present and Yes Ability to bilaterally elevate shoulders present Speech: No Abnormal speech present Gait exam (Neuro): Normal gait present Motor exam (neuro): 5/5 motor strength present throughout Sensory Exam: No Sensory deficit (Neuro) Extrem Other: Tenderness on palpation in the left groin. Lateral rotation of the left hip and medial rotation of the hip cause significant pain with medial rotation more than lateral rotation. The pain radiation into the groin. Allodynia on anterior lateral anterior medial surfaces of the hip joint. Range of motion of the hip joint is greatly limited secondary to significant pain. General: No pedal edema Psych Speech and movement: Normal speech and movement present Affect: normal affect Attitude: cooperative Thought process: Normal thought process present Thought content: Normal thought content present Insight: Good insight present (Psych) Judgement: Good judgement present (Psych) Results Reviewed Results Reviewed: Date of Service: 02/28/23 EXAMINATION: NM BONE SCAN OF THE WHOLE BODY CLINICAL INFORMATION: Bladder cancer. Initial staging. COMPARISON: CT of the abdomen and pelvis done on 02/14/2023. FINDINGS: In the head, asymmetric increased activity is present projecting in the region of the left-sided check/maxilla, best seen on the anterior frontal projection on the whole body image. Correlation with follow-up CT scan and/or radiographs as appropriate is recommended for further clarification. In the thoracic cage and upper extremities, mildly increased radiotracer activities at both sternoclavicular and acromioclavicular joints likely represent degenerative and/or arthritic changes. In the spine, scoliotic and mild multilevel degenerative spondylosis related changes are present without any definite suspicious focal abnormality. In the pelvis, no suspicious focal lesion. In the lower extremities, no suspicious focal lesion. No other definite bony abnormalities are noted. The urinary bladder and faint visualization of both kidneys are noted. IMPRESSION: ? 1. Indeterminate asymmetric increased radiotracer activity is present overlying the left-sided cheek/maxillary region, not optimally characterized. Follow-up correlation with CT scan and/or radiographs as appropriate is recommended for further clarification. 2. No other definite focal suspicious osseous abnormality. Incidental note is made of likely degenerative arthritic changes at both acromioclavicular and sternoclavicular joints and scoliotic changes within the spine and superimposed likely degenerative spondylosis. ? ? Diagnosis A.? Bladder, left posterior wall, transurethral resection: -?High grade papillary urothelial carcinoma, non-invasive. - No muscularis propria present. Bladder, transurethral resection/biopsy (A) Procedure: Transurethral resection Tumor site: Left posterior wall Histologic type: Urothelial papillary carcinoma Histologic grade: High grade (with mixed low grade present) Muscularis propria: Not present Extent of invasion: Non-invasive Lymphovascular invasion: Not identified. B.? Bladder, superior wall, transurethral resection:??High grade urothelial carcinoma, invasive into muscularis propria. Bladder, transurethral resection/biopsy (B) Procedure: Transurethral resection Tumor site: Superior wall Histologic type: Urothelial carcinoma Histologic grade: High grade Muscularis propria: Present Extent of invasion: Muscularis propria Lymphovascular invasion: Present Clinical History Bladder tumor Microscopic Description Microscopic sections reviewed. Material Received A. Left posterior wall tumor B. Superior wall bladder tumor Gross Description Received in 2 parts. Part A:? Received in formalin labeled ?left posterior wall tumor? are 3 glistening, semitranslucent, velvety, cauterized, garner-pink fragments of tissue versus tumor measuring 0.3, 0.6 and 0.8 cm in greatest dimension which are submitted in toto along with a 1.3 x 0.8 x 0.4 cm aggregate of opaque, garner fibrinous material, submitted in toto in a single cassette labeled A. Part B:? Received in formalin labeled ?superior wall bladder tumor along with copious friable, cauterized necrotic, pacheco-garner debris and scant red-maroon blood are multiple fragments and chips of extensively cauterized, congested and hemorrhagic, pacheco-garner and garner-pink fibromuscular tissue and pasty, opaque, garner-white debris aggregating 4.0 x 3.0 x 0.5-0.8 cm.? The cauterized tissue fragments are submitted in toto in cassettes B1-B5.? The debris is retained in formalin.? CEDS This case was reviewed intradepartmentally. Assessment & Plan Assessment & Plan (1) Arthritis of left hip: Code(s): M16.12 - Unilateral primary osteoarthritis, left hip (2) Bladder cancer: Code(s): C67.9 - Malignant neoplasm of bladder, unspecified Plan We agreed that I will send her for x-ray of the left hip, if there are any pathologies on x-ray I will offer for his soon as possible to perform therapeutic intra-articular hip steroid injection. That may help her pain in the groin to some extent. If there will be no arthritis in the hip or if she will be getting no good results from the hip steroid injection even with the image of arthritis, I will schedule her for intrathecal pump implant. I explained to the patient's the nature of the procedure and I explained to her the risks and benefits of the intrathecal pain therapy. Orders: Orders XR hip LT min 2V Today C67.9 - Malignant neoplasm of bladder, unspecified, M16.12 - Unilateral primary osteoarthritis, left hip Patient Instructions: I here by testify that I spent 50 minutes in conversation with this patient as well as evaluating her prior notes, prior diagnostic studies, and current treatment. Coding Level of Care Code New Pt Level 4 (87417) Diagnoses Arthritis of left hip M16.12 Bladder cancer C67.9
== END 2023-10-16 10:39 | disposition home or self-care (01) ==
PROVIDERS: PCP Physician Assistant; Referring Provider Internal Medicine; Visit Provider Anesthesiology
DX: M16.12 Unilateral primary osteoarthritis, left hip (principal); C67.9 Malignant neoplasm of bladder, unspecified
CPT/HCPCS: 99204

== ENCOUNTER 2023-10-23 09:06 | Outpatient (AMB) | payer MEDICARE, OTHER, SELFPAY ==
--- NOTE | 2023-10-23 09:06 | A.OFFVIS_ITS ---
Intake Intake Visit Reasons: xray result Allergies No Known Allergies Allergy (Verified 10/23/23 09:07) HPI HPI Comments History of Present Illness Details Karmen is on the phone today to discuss the treatment options. He went for the x-ray of the left hip which demonstrated osteophytes and arthritis. I offered her diagnostic as well as therapeutic intra-articular left hip injection. I also offered her intrathecal drug delivery system pain pump. She was today asking multiple questions about both procedures, she was given explanation on both the injection and pain pump. She wants to go through the trial for the pain pump. We probably will start with bupivacaine for the trial. Clonidine can not be added already to the pump if the bupivacaine will be helpful. Possibility exists to treat her pain with Prialt as well. Very detailed explanations were given to the patient. Prior : very pleasant 73 years old female who presents in my office with complains on pain in the right groin with radiation onto the inner thigh and anterior and medial surface of the left hip with rare radiation of the pain below the level of the knee into the left lower leg to the level of the ankle. This patient is suffering from bladder cancer. She was diagnosed in 2022. TURBT in January 2023. She has history osteoporosis and on Reclast she is managed by licensed sales producer. She reports remote history of smoking she reports many years of secondhand smoking. Denies aniline dye and other nephrotoxic compounds exposure. She is taking to control her pain 20 mg of oxycodone 4 times a day she is on fentanyl patch 50 micro g an hour as well as she is taking to control her pain 400 mg of ibuprofen every 6 hours. She still reports severe pain 10/10 in the painful areas. She also reports allodynia on the anterior lateral surface and anterior medial surface of the hip. 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 Dowd her oncologist thinks that she has more than 6 months to live. Past medical history significant for bladder cancer GERD history of takotsubo syndrome with current ejection fraction of 30% she is currently on Eliquis. Her past surgical history significant for hysterectomy and bladder resection wit h urostomy placement her urostomy on the right side. Social history she denies smoking cigarettes drinking alcohol denies recreational drugs. She is retired individual. [facility] Medical History Bladder cancer Scoliosis History of second hand smoke exposure Hx of gastroesophageal reflux (GERD) Hx of hyperlipidemia Hx of osteoporosis Surgical History Hx of cystoscopy History of ectopic History of laparoscopic appendectomy Hx of hiatal hernia Hx of total hysterectomy Family History Mother Tumor of lung Father Bladder cancer Myocardial infarction Social History (Updated 08/19/23 @ 09:19 by Fernanda Barkley MA) Household Members: None Housing: House Do you presently have visiting nurse or other home services: No Alcohol intake: never Patient Tobacco Use Status: Former Tobacco user Quit Date: in Tobacco use type: Cigarette Years Smoked: 3 Second Hand Smoke Exposure: No Advance Directives Date on File: 02/19/23 service: No Current occupational status: retired and disabled Review of Systems Const All systems reviewed & are unremarkable except as noted in HPI and below Assessment & Plan Assessment & Plan (1) Arthritis of left hip: Code(s): M16.12 - Unilateral primary osteoarthritis, left hip (2) Bladder cancer: Code(s): C67.9 - Malignant neoplasm of bladder, unspecified (3) Left hip pain: Code(s): M25.552 - Pain in left hip Plan Intra-articular hip injection will be scheduled for the patient. If this will be helping for the patient I will consider continuation of this hip injections in the future as needed. However her pain is multifactorial. I wanted to implant pain pump right away into the patient however she wants to do a trial 1st. We probably will try bupivacaine for her 1st. She is on Eliquis and she needs to stop Eliquis for 3 days before the procedure. She can resume her Eliquis 24 hours after the procedure. Patient Instructions: I here by testify that I spent 32 minutes in conversation with this patient as well as planning her care and organizing this note. Telehealth Telehealth Location of provider rendering services: practice address Location of patient: address on file Patient Identification confirmed using: Name, : Yes Telehealth method: voice only Patient verbally consented to treatment: Yes Patient verbally consented to billing insurance company: Yes Patient informed of any privacy concerns related to visit: Yes Coding Level of Care Code Tele Est Pt Level 4 (54851) Diagnoses Arthritis of left hip M16.12 Bladder cancer C67.9 Left hip pain M25.552
== END 2023-10-23 09:20 | disposition home or self-care (01) ==
LOC: HO.PMC 09:06
PROVIDERS: PCP Physician Assistant; Visit Provider Anesthesiology
DX: M16.12 Unilateral primary osteoarthritis, left hip (principal); C67.9 Malignant neoplasm of bladder, unspecified; M25.552 Pain in left hip
CPT/HCPCS: 99443

== ENCOUNTER → 2023-10-23 09:06 | Outpatient (BNVA) | payer MEDICARE, OTHER, SELFPAY | PROVIDERS: PCP Physician Assistant; Visit Provider Anesthesiology ==

== ENCOUNTER 2023-10-29 07:06 | Outpatient (REF) | payer MEDICARE, OTHER, SELFPAY ==
--- NOTE | ~2023-10-29 | FL_ITS ---
EXAMINATION: XR FLUOROSCOPY WITH IMAGES CLINICAL INFORMATION: Left hip pain. ITDD trial. COMPARISON: PET/CT 10/15/2023. TECHNIQUE: Fluoroscopy Supervised By: Dino Albert M.D. Fluoroscopy Time: 0.2 minutes. Cumulative Dose: 4.97 mGy. DAP: 0.729 Gy.cm2. Images: 2. FINDINGS: A needle is present in the presumed epidural space at the level of the superior endplate of L3. Please see Dr. Albert's report for complete procedural details. FL/FL guidance in treatment room IMPRESSION: Fluoroscopy and spot films provided during lumbar procedure.
== END 2023-10-29 07:07 | disposition home or self-care (01) ==
LOC: CF 07:06
PROVIDERS: Visit Provider Anesthesiology
DX: M25.552 Pain in left hip (principal); C67.9 Malignant neoplasm of bladder, unspecified; G89.3 Neoplasm related pain (acute) (chronic); G89.4 Chronic pain syndrome; Z45.1 Encounter for adjustment and management of infusion pump
CPT/HCPCS: 62323; J0665

== ENCOUNTER 2023-10-29 09:14 | Outpatient (AMB) | payer MEDICARE, OTHER, SELFPAY ==
[2023-10-29 11:43] VITALS: BP 116/64; PULSE 73; RESP 14; O2SAT 96; BMI 22.1
--- NOTE | 2023-10-29 11:43 | MHC.OFFVIS ---
Intake Vital Signs 10/29/23 11:43 10/29/23 11:44 10/29/23 11:46 Height 5 ft 1 in Weight 117 lb BMI 22.1 BP 116/64 122/74 114/62 Blood Pressure Location Lt brachial Lt brachial Lt brachial Position Sitting Sitting Sitting Respiration 14 16 Pulse 73 71 Pulse Source Pulse Oximeter Pulse Oximeter Pulse Oximetry (%) 96 98 Oxygen Delivery Method Room Air Room Air Comment Pre-Op Post-Op Intake Visit Reasons: ITDD TRIAL WITH BUPIVOCAINE Allergies No Known Allergies Allergy (Verified 10/23/23 09:07) PFSH Medical History Bladder cancer Scoliosis History of second hand smoke exposure Hx of gastroesophageal reflux (GERD) Hx of hyperlipidemia Hx of osteoporosis Surgical History Hx of cystoscopy History of ectopic History of laparoscopic appendectomy Hx of hiatal hernia Hx of total hysterectomy Family History Mother Tumor of lung Father Bladder cancer Myocardial infarction Social History (Updated 08/19/23 @ 09:19 by Fernanda Barkley CMA) Household Members: None Housing: House Do you presently have visiting nurse or other home services: No Alcohol intake: never Patient Tobacco Use Status: Former Tobacco user Quit Date: in Tobacco use type: Cigarette Years Smoked: 3 Second Hand Smoke Exposure: No Advance Directives Date on File: 02/19/23 service: No Current occupational status: retired and disabled Physical Exam Vital Signs: Last Vital Signs Pulse 71 10/29/23 11:46 Resp 16 10/29/23 11:46 BP 114/62 10/29/23 11:46 Pulse Ox 98 10/29/23 11:46 Oxygen Delivery Method Room Air 10/29/23 11:46 BMI result Body Mass Index 22.1 Assessment & Plan Assessment & Plan (1) Bladder cancer: Code(s): C67.9 - Malignant neoplasm of bladder, unspecified (2) Chronic pain syndrome: Code(s): G89.4 - Chronic pain syndrome (3) Cancer associated pain: Code(s): G89.3 - Neoplasm related pain (acute) (chronic) Plan Intrathecal pain pump trial Informed consent was explained to the patient. All questions were explained and answered. The patient was taken inside of the operating room where she was positioned prone on the operating table. Time-out was performed delineating patient's name and date of , correct site, side, the nature of the procedure, patient's allergy, All operating room staff and the patient were participating in OR time-out procedure. the patient's lower back was prepped with ChloraPrep and draped with sterile utility draped. Sterilely draped C-arm was brought over the operating field and sq picture of lumbar vertebrae were delineated on the screen. the target of needle insertion was chosen between L2 and L3 vertebrae. The projection of the right lamina of the L 3 vertebra was chosen as the starting point of the injection. 22 gauge 3-1/2 inch Wittaker needle was inserted through the skin after skin wheal was raised with lidocaine 2%. The needle was directed to the L2-L3 interlaminar space. The advancement of the needle was performed on intermittent anterior posterior and lateral views. On anterior posterior view needle was positioned strictly in the midline. On the lateral view needle entered in the projection of the center of the spinal canal. At that moment the stylet was removed from the needle and clear flow CSF was detected in the needle hub. After that 0.7 mL the solution containing trial medication preservative-free bupivacaine 1.75 mg was injected into the needle. After that needle was removed sterile dressing was applied. Patient tolerated procedure well. She was taken outside of the operating room to the recovery room where she recovered uneventfully. Orders: Orders FL guidance in treatment room Today M25.552 - Pain in left hip Coding Level of Care Code Procedure Only Diagnoses Bladder cancer C67.9 Chronic pain syndrome G89.4 Cancer associated pain G89.3
[2023-10-29 11:44] VITALS: BP 122/74
[2023-10-29 11:46] VITALS: BP 114/62; PULSE 71; RESP 16; O2SAT 98
== END 2023-10-29 12:06 | disposition home or self-care (01) ==
LOC: HO.PMCPRC 09:14
PROVIDERS: PCP Physician Assistant; Visit Provider Anesthesiology
DX: G89.3 Neoplasm related pain (acute) (chronic) (principal); C67.9 Malignant neoplasm of bladder, unspecified
CPT/HCPCS: 62323

== ENCOUNTER 2023-11-04 11:06 | Outpatient (AMB) | payer MEDICARE, OTHER, SELFPAY ==
--- NOTE | 2023-11-04 11:38 | MHC.OFFVIS ---
Intake Vital Signs 11/04/23 11:47 Height 5 ft 1 in Weight 114 lb 2 oz BMI 21.6 BP 134/74 Blood Pressure Location Lt brachial Position Sitting Respiration 12 Pulse 60 Pulse Source Pulse Oximeter Pulse Oximetry (%) 99 Oxygen Delivery Method Room Air Intake Visit Reasons: ITDD TRIAL/10/29/23 Intake Note: Patient comes in for post-op appointment. Reports pain 09/07. Allergies No Known Allergies Allergy (Verified 11/04/23 11:49) HPI HPI Comments History of Present Illness Details Karmen lopez is in my office today to discuss results of the intrathecal pain pump trial we performed on 10/29/2023. Originally we were planning to do hip injection. However the patient brought me the results of the intra-articular hip injection performed elsewhere which did not alleviate her pain at all. I decided to change the nature of the procedure and perform trial of a pain pump. I injected 1.75 mg of bupivacaine intrathecally for this patient, the patient was instructed not to take her oral oxycodone unless she really has to. She took her 1st oxycodone only yesterday 11/03/2023. She reported that immediately after the injections she felt no pain whatsoever she had excellent mobility and good activities of daily living. I discussed date of surgery for her with her oncologist Dr. Dowd. Due to her chemotherapy schedule I will perform the surgery on 11/15/2023. I will send her for CBC 1 week before the surgery because if her platelet count is low I need to order platelets. She will continue her opioid medications throughout the surgery and after that unless she desires not to take any of the opioids due to intrathecal pain pump action. Prior : very pleasant 73 years old female who presents in my office with complains on pain in the right groin with radiation onto the inner thigh and anterior and medial surface of the left hip with rare radiation of the pain below the level of the knee into the left lower leg to the level of the ankle. This patient is suffering from bladder cancer. She was diagnosed in 2022. TURBT in January 2023. She has history osteoporosis and on Reclast she is managed by coremaker. She reports remote history of smoking she reports many years of secondhand smoking. Denies aniline dye and other nephrotoxic compounds exposure. She is taking to control her pain 20 mg of oxycodone 4 times a day she is on fentanyl patch 50 micro g an hour as well as she is taking to control her pain 400 mg of ibuprofen every 6 hours. She still reports severe pain 10/10 in the painful areas. She also reports allodynia on the anterior lateral surface and anterior medial surface of the hip. 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 Dowd her oncologist thinks that she has more than 6 months to live. Past medical history significant for bladder cancer GERD history of takotsubo syndrome with current ejection fraction of 30% she is currently on Eliquis. Her past surgical history significant for hysterectomy and bladder resection with urostomy placement her urostomy on the right side. Social history she denies smoking cigarettes drinking alcohol denies recreational drugs. She is retired individual. [facility] Medical History Bladder cancer Scoliosis History of second hand smoke exposure Hx of gastroesophageal reflux (GERD) Hx of hyperlipidemia Hx of osteoporosis Surgical History Hx of cystoscopy History of ectopic History of laparoscopic appendectomy Hx of hiatal hernia Hx of total hysterectomy Family History Mother Tumor of lung Father Bladder cancer Myocardial infarction Social History (Updated 08/19/23 @ 09:19 by Fernanda Barkley CMA) Household Members: None Housing: House Do you presently have visiting nurse or other home services: No Alcohol intake: never Patient Tobacco Use Status: Former Tobacco user Quit Date: in Tobacco use type: Cigarette Years Smoked: 3 Second Hand Smoke Exposure: No Advance Directives Date on File: 02/19/23 service: No Current occupational status: retired and disabled Review of Systems Const All systems reviewed & are unremarkable except as noted in HPI and below ENT Reports Normal hearing present Neuro Reports Normal hearing present, Denies Abnormal speech present and Denies Sensory deficit (Neuro) Physical Exam Vital Signs: Last Vital Signs Pulse 60 11/04/23 11:47 Resp 12 11/04/23 11:47 BP 134/74 11/04/23 11:47 Pulse Ox 99 11/04/23 11:47 Oxygen Delivery Method Room Air 11/04/23 11:47 BMI result Body Mass Index 21.6 Const General: no acute distress, tired appearing and well groomed Nutritional Appearance: thin and underweight Orientation/consciousness: patient oriented x3 Eyes General: appearance normal, both eyes and all related structures Pupils: Equal, round and reactive pupils present EOM: EOMs intact bilaterally Neck Neck: Yes full ROM Chest Chest palpation & inspection: normal inspection of the chest Resp Effort & Inspection: normal respiratory effort, able to speak in complete sentences, normal respiratory pattern, no audible wheezes and no cough Cardio Jugular venous distension: no JVD GI Other: There is a urostomy bag connected to urostomy in the right lower quadrant. Inspection: No normal to inspection, No abdominal wall ecchymosis, No distended and Yes incision (Midline incision from symphysis pubis to umbilicus.) Palpation (GI): Soft to palpation, No hepatosplenomegaly present, no masses, No Ascites present and No Rebound tenderness present Neuro General: patient oriented x3 and gait normal Cranial nerves: Yes CN's II-XII intact bilaterally, Yes Equal, round and reactive pupils present, Yes Normal hearing present and Yes Ability to bilaterally elevate shoulders present Speech: No Abnormal speech present Gait exam (Neuro): Normal gait present Motor exam (neuro): 5/5 motor strength present throughout Sensory Exam: No Sensory deficit (Neuro) Extrem Other: Tenderness on palpation in the left groin. Lateral rotation of the left hip and medial rotation of the hip cause significant pain with medial rotation more than lateral rotation. The pain radiation into the groin. Allodynia on anterior lateral anterior medial surfaces of the hip joint. Range of motion of the hip joint is greatly limited secondary to significant pain. General: No pedal edema Psych Speech and movement: Normal speech and movement present Affect: normal affect Attitude: cooperative Thought process: Normal thought process present Thought content: Normal thought content present Insight: Good insight present (Psych) Judgement: Good judgement present (Psych) Assessment & Plan Assessment & Plan (1) Arthritis of left hip: Code(s): M16.12 - Unilateral primary osteoarthritis, left hip (2) Bladder cancer: Code(s): C67.9 - Malignant neoplasm of bladder, unspecified (3) Left hip pain: Code(s): M25.552 - Pain in left hip Plan Report of the Intra-articular hip injection was brought to me by the patient. She reported no help with this injection. I decided to proceed with pain pump trial. On a trial 1.75 mg of bupivacaine eliminated her pain completely for several days after the procedure. She did not take her oxycodone orally and remained on fentanyl only because otherwise she would go into withdrawal. I will schedule her for pump implant on 11/15/2023. She is on Eliquis and she needs to stop Eliquis for 3 days before the procedure. She can resume her Eliquis 24 hours after the procedure. Risks benefits and alternatives were discussed today. She was asking multiple questions. All questions were answered to her satisfaction. Patient Instructions: I here by testify that I spent 37 minutes in conversation with this patient as well as planning her care and organizing her note. Coding Level of Care Code Est Pt Level 4 (68227) Diagnoses Arthritis of left hip M16.12 Bladder cancer C67.9 Left hip pain M25.552
[2023-11-04 11:47] VITALS: BP 134/74; PULSE 60; RESP 12; O2SAT 99; BMI 21.6
== END 2023-11-04 11:58 | disposition home or self-care (01) ==
PROVIDERS: PCP Physician Assistant; Visit Provider Anesthesiology
DX: M16.12 Unilateral primary osteoarthritis, left hip (principal); C67.9 Malignant neoplasm of bladder, unspecified; M25.552 Pain in left hip
CPT/HCPCS: 99214

== ENCOUNTER → 2023-11-04 11:06 | Outpatient (BNVA) | payer MEDICARE, OTHER, SELFPAY | PROVIDERS: PCP Physician Assistant; Visit Provider Anesthesiology | DX: M16.12 Unilateral primary osteoarthritis, left hip (principal); M25.552 Pain in left hip; C67.9 Malignant neoplasm of bladder, unspecified | CPT/HCPCS: 99212 ==

== ENCOUNTER 2023-11-08 14:29 | Outpatient (REF) | payer MEDICARE, OTHER, SELFPAY | END 2023-11-08 14:30 | disposition home or self-care (01) | LOC: HO.LAB 14:29 | PROVIDERS: Visit Provider Anesthesiology | DX: Z13.89 Encounter for screening for other disorder (principal) ==

== ENCOUNTER 2023-11-11 10:04 | Outpatient (REF) | payer MEDICARE, OTHER, SELFPAY ==
[2023-11-11 10:19] LABS: MANUAL DIFF FLAG NO
[2023-11-11 10:56] LABS: Basophils Percent Auto 0.5 % (0-2); Eosinophils Absolute Auto 0.2 X10*3/uL (0.0-0.4); Eosinophils Percent Auto 2.2 % (0-4); Hematocrit 42.4 % (37.0-47.0); Hemoglobin 13.5 g/dl (12.0-16.0); Imm Gran Abs Auto 0.02 X10*3/uL (0.00-0.03); Imm Gran Pct Auto 0.3 % (0.0-0.4); Lymphocytes Absolute Auto 0.8 X10*3/uL (1.2-4.9); Lymphocytes Percent Auto 10.2 % (20-40); Mean Corpuscular HGB Conc 31.8 g/dl (31.0-35.0); Mean Corpuscular Hemoglobin 29.5 pg (27.0-33.0); Mean Corpuscular Volume 92.6 fL (80.0-98.0); Mean Platelet Volume 10.1 fL (9.4-12.3); Monocytes Absolute Auto 0.5 X10*3/uL (0.1-1.2); Monocytes Percent Auto 6.3 % (2-11); Neutrophils Percent Auto 80.5 % (45-73); Platelet Count 260 X10*3/uL (160-400); Red Blood Count 4.58 X10*6/uL (4.20-5.50); Red Cell Distribution Width 15.4 % (11.0-16.0); White Blood Count 7.4 X10*3/uL (4.8-10.8)
== END 2023-11-11 10:05 | disposition home or self-care (01) ==
LOC: HO.LAB 10:04
PROVIDERS: PCP Physician Assistant; Visit Provider Anesthesiology
DX: G89.3 Neoplasm related pain (acute) (chronic) (principal); G89.4 Chronic pain syndrome; C67.9 Malignant neoplasm of bladder, unspecified
CPT/HCPCS: 36415; 85025

== ENCOUNTER 2023-11-13 10:59 | Outpatient (AMB) | payer MEDICARE, OTHER, SELFPAY ==
--- NOTE | 2023-11-13 11:21 | A.OFFVIS_ITS ---
Intake Vital Signs 11/13/23 11:27 Height 5 ft 1 in Weight 111 lb BMI 21.0 BP 110/62 Blood Pressure Location Lt brachial Position Sitting Respiration 12 Pulse 97 Pulse Source Pulse Oximeter Pulse Oximetry (%) 97 Oxygen Delivery Method Room Air Intake Visit Reasons: Abdominal Binder Allergies No Known Allergies Allergy (Verified 11/13/23 11:27) HPI HPI Comments History of Present Illness Details Karmen is is in my office 2nd time today to discuss results of the intrathecal pain pump trial we performed on 10/29/2023. We were planning to do urgent implantation of the pain pump on Saturday11/15/2023 when patient reported that she is free of pain at this time. She still is wearing fentanyl patch and she continues 50 micro g a day however her oncologist believe that her pain improvement must come from the chemotherapy treatment. Patient also wants to believe that she has better perspective in terms of her treatment. She has not sure whether she wants to go for intrathecal pain pump at this time. I told her that my services are here for her and if she will change her mind she is welcome to come back. She wants to wait until she completes this interval of chemotherapy and verify her metastasis size and locations and after that make decision of whether or not she would go for the pain pump procedure. Prolonged and careful conversation was hold about benefits and side effects of the pain pump. I answered all this questions to her satisfaction and yet I told her that time here for her if she decides to go for the procedure again. Prior: very pleasant 73 years old female who presents in my office with complains on pain in the right groin with radiation onto the inner thigh and anterior and medial surface of the left hip with rare radiation of the pain below the level o f the knee into the left lower leg to the level of the ankle. This patient is suffering from bladder cancer. She was diagnosed in 2022. TURBT in January 2023. 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 She reports remote history of smoking she reports many years of secondhand smoking. Denies aniline dye and other nephrotoxic compounds exposure. She is taking to control her pain 20 mg of oxycodone 4 times a day she is on fentanyl patch 50 micro g an hour as well as she is taking to control her pain 400 mg of ibuprofen every 6 hours. She still reports severe pain 10/10 in the painful areas. She also reports allodynia on the anterior lateral surface and anterior medial surface of the hip. 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 Dowd her oncologist thinks that she has more than 6 months to live. [facility] Medical History Bladder cancer Scoliosis History of second hand smoke exposure Hx of gastroesophageal reflux (GERD) Hx of hyperlipidemia Hx of osteoporosis Surgical History Hx of cystoscopy History of ectopic History of laparoscopic appendectomy Hx of hiatal hernia Hx of total hysterectomy Family History Mother Tumor of lung Father Bladder cancer Myocardial infarction Social History (Updated 08/19/23 @ 09:19 by Fernanda Barkley [facility]) Household Members: None Housing: House Do you presently have visiting nurse or other home services: No Alcohol intake: never Patient Tobacco Use Status: Former Tobacco user Quit Date: in Tobacco use type: Cigarette Years Smoked: 3 Second Hand Smoke Exposure: No Advance Directives Date on File: 02/19/23 service: No Current occupational status: retired and disabled Review of Systems Const All systems reviewed & are unremarkable except as noted in HPI and below ENT Reports Normal hearing present Neuro Reports Normal hearing present, Denies Abnormal speech present and Denies Sensory deficit (Neuro) Physical Exam Vital Signs: Last Vital Signs Pulse 97 11/13/23 11:27 Resp 12 11/13/23 11:27 BP 110/62 11/13/23 11:27 Pulse Ox 97 11/13/23 11:27 Oxygen Delivery Method Room Air 11/13/23 11:27 BMI result Body Mass Index 21.0 Const General: no acute distress, tired appearing and well groomed Nutritional Appearance: thin and underweight Orientation/consciousness: patient oriented x3 Eyes General: appearance normal, both eyes and all related structures Pupils: Equal, round and reactive pupils present EOM: EOMs intact bilaterally Neck Neck: Yes full ROM Chest Chest palpation & inspection: normal inspection of the chest Resp Effort & Inspection: normal respiratory effort, able to speak in complete sentences, normal respiratory pattern, no audible wheezes and no cough Cardio Jugular venous distension: no JVD GI Other: There is a urostomy bag connected to urostomy in the right lower quadrant. Inspection: No normal to inspection, No abdominal wall ecchymosis, No distended and Yes incision (Midline incision from symphysis pubis to umbilicus.) Palpation (GI): Soft to palpation, No hepatosplenomegaly present, no masses, No Ascites present and No Rebound tenderness present Neuro General: patient oriented x3 and gait normal Cranial nerves: Yes CN's II-XII intact bilaterally, Yes Equal, round and reactive pupils present, Yes Normal hearing present and Yes Ability to bilaterally elevate shoulders present Speech: No Abnormal speech present Gait exam (Neuro): Normal gait present Motor exam (neuro): 5/5 motor strength present throughout Sensory Exam: No Sensory deficit (Neuro) Extrem Other: Tenderness on palpation in the left groin. Lateral rotation of the left hip and medial rotation of the hip cause significant pain with medial rotation more than lateral rotation. The pain radiation into the groin. Allodynia on anterior lateral anterior medial surfaces of the hip joint. Range of motion of the hip joint is greatly limited secondary to significant pain. General: No pedal edema Psych Speech and movement: Normal speech and movement present Affect: normal affect Attitude: cooperative Thought process: Normal thought process present Thought content: Normal thought content present Insight: Good insight present (Psych) Judgement: Good judgement present (Psych) Assessment & Plan Assessment & Plan (1) Arthritis of left hip: Code(s): M16.12 - Unilateral primary osteoarthritis, left hip (2) Bladder cancer: Code(s): C67.9 - Malignant neoplasm of bladder, unspecified (3) Left hip pain: Code(s): M25.552 - Pain in left hip Plan Pain pump implant was delayed for now. On a pain pump trial 10/29/2023 1.75 mg of bupivacaine eliminated her pain completely for several days after the procedure. She still not taking oxycodone but she thinks that elimination of the pain is rather related to success of her chemotherapy. Her oncologist has the same opinion. She wants to wait for implantation of the pain pump. She wants to see how her metastasis are responding to the chemotherapy. She will give us a call if she changes her mind about pain pump. She is on Eliquis and she needs to stop Eliquis for 3 days before the procedure. She can resume her Eliquis 24 hours after the procedure. Risks benefits and alternatives were discussed today. She was asking multiple questions. All questions were answered to her satisfaction. Patient Instructions: I here by testify that I spent 30 minutes in conversation with this patient as well as planning her care and organizing this note. Coding Level of Care Code Est Pt Level 4 (05592) Diagnoses Arthritis of left hip M16.12 Bladder cancer C67.9 Left hip pain M25.552
[2023-11-13 11:27] VITALS: BP 110/62; PULSE 97; RESP 12; O2SAT 97; BMI 21.0
== END 2023-11-13 12:08 | disposition home or self-care (01) ==
PROVIDERS: PCP Physician Assistant; Visit Provider Anesthesiology
DX: M16.12 Unilateral primary osteoarthritis, left hip (principal); M25.552 Pain in left hip; C67.9 Malignant neoplasm of bladder, unspecified
CPT/HCPCS: 99214

== ENCOUNTER → 2023-11-13 10:59 | Outpatient (BNVA) | payer MEDICARE, OTHER, SELFPAY | PROVIDERS: PCP Physician Assistant; Visit Provider Anesthesiology | DX: M16.12 Unilateral primary osteoarthritis, left hip (principal); M25.552 Pain in left hip; C67.9 Malignant neoplasm of bladder, unspecified; Z79.01 Long term (current) use of anticoagulants | CPT/HCPCS: 99212 ==

== ENCOUNTER 2024-02-04 09:56 | Inpatient (IN) | payer MEDICARE, OTHER, SELFPAY ==
[2024-02-04] VITALS (10 sets, daily range): BP systolic 104–135; BP diastolic 62–76; PULSE 72–102; RESP 13–16; TEMP 36.6–37.1; O2SAT 95–99; BMI 19.4
--- NOTE | ~2024-02-04 | CT_ITS ---
EXAMINATION: CT ABDOMEN AND PELVIS WITH CONTRAST CLINICAL INFORMATION: Left lower quadrant pain. Bladder cancer COMPARISON: 02/14/2023 CT, 10/15/2023 PET/CT TECHNIQUE: Multidetector volumetric images were obtained from the superior aspect of the liver through the pubic symphysis following administration 85 mL of Omnipaque 350 intravenous contrast. Sagittal and coronal reformatted images were obtained on the technologist's workstation. Oral contrast: No This CT examination was performed using dose optimization techniques as appropriate, variously including the following: *Automated exposure control *Adjustment of mA and/or kV according to patient size (this includes techniques or standardized protocols for targeted exams where dose is matched to indication/reason for exam; i.e. extremities or head) *Use of iterative reconstruction technique DLP: 301 mGy-cm FINDINGS: REGISTERED ASSOCIATE: Nonspecific bowel pattern. Right lower quadrant ostomy pelvic clips. Demineralization and mild levoscoliosis. LUNG BASES: Nonenlarged heart. No pericardial effusion. Large hiatal hernia debris and air-fluid level. Hyperinflated lungs with interval development 4.7 cm heterogeneous pleural-based lobulated density posterior right lower lobe, 2:78. Similar soft tissue densities identified adjacent to the anterior right hemidiaphragm, / measuring 1.4 cm, in the left lingula heart border measuring 2.1 cm, 5:78. LIVER, GALLBLADDER, AND BILIARY TREE: There is diffuse hypodensity to the liver parenchyma. No focal hepatic lesion or biliary ductal dilatation is present. The gallbladder is unremarkable with no evidence of radiopaque gallstones, gallbladder wall thickening, or obvious pericholecystic inflammatory changes. Common bile duct measures 7 mm PANCREAS: Unremarkable. SPLEEN: Unremarkable. ADRENAL GLANDS: Unremarkable. KIDNEYS AND URETERS: The kidneys are normal in size, shape, and attenuation. No hydronephrosis, perinephric stranding. Right extrarenal pelvis and visualized right ureter are mildly prominent. Right lower quadrant urostomy is seen. BLADDER: Surgically removed. GASTROINTESTINAL TRACT: Large hiatal hernia with debris and air-fluid level. Stomach is decompressed. Nonobstructive bowel pattern. Severe fecal retention. Large heterogeneous, enhancing irregular soft tissue pelvic density measuring at least 5.3 cm. This is in intimate association with the lower rectum. Internal air droplets are present. ABDOMINAL WALL: Fat-containing ventral hernia, left of midline. Right lower quadrant ostomy. LYMPH NODES: Asymmetric soft tissue density adjacent to left iliac wing and extending down around the left acetabulum and pelvic sidewall, possible lymphadenopathy. Nonspecific left inguinal lymph nodes. VASCULAR: Atherosclerotic calcifications nonaneurysmal aorta. Normal caliber inferior vena cava. Patent portal system. PELVIC VISCERA: Uterus not identified. OSSEOUS STRUCTURES: Multiple blastic foci, most prominently involving T12 and L2 suspicious for blastic disease. Mixed blastic and lytic components of L1 with moderately severe compression fracture. Pubic rami and left acetabular sclerosis/blastic disease. CT/CT abdomen pelvis w IV con IMPRESSION: Patient with history of bladder cancer, status post post cystectomy, ileal conduit and right lower quadrant ostomy with suspicion for metastatic disease as follows: New bilateral lung lesions, largest pleural-based measuring 4.7 cm in the right lower lobe. Blastic lesions involving the pelvis, left acetabulum and T12 and L2 vertebral bodies. Mixed lytic and blastic process L1 with moderately severe compression deformity. 5.3 cm enhancing left perirectal soft tissue density with air droplet, suspicious for either abscess or infected neoplastic process. This showed FDG activity on 10/15/2023 PET/CT.
[2024-02-04 10:37] LABS: MANUAL DIFF FLAG NO
[2024-02-04 10:40] LABS: Basophils Percent Auto 0.1 % (0-2); Hematocrit 36.3 % (37.0-47.0); Hemoglobin 12.2 g/dl (12.0-16.0); Imm Gran Abs Auto 0.03 X10*3/uL (0.00-0.03); Imm Gran Pct Auto 0.4 % (0.0-0.4); Lymphocytes Absolute Auto 0.7 X10*3/uL (1.2-4.9); Lymphocytes Percent Auto 9.5 % (20-40); Mean Corpuscular HGB Conc 33.6 g/dl (31.0-35.0); Mean Corpuscular Hemoglobin 30.6 pg (27.0-33.0); Mean Platelet Volume 8.8 fL (9.4-12.3); Monocytes Absolute Auto 0.5 X10*3/uL (0.1-1.2); Monocytes Percent Auto 6.9 % (2-11); Neutrophils Absolute Auto 6.2 x10*3/uL (2.0-8.3); Neutrophils Percent Auto 83.1 % (45-73); Platelet Count 180 X10*3/uL (160-400); Red Blood Count 3.99 X10*6/uL (4.20-5.50); Red Cell Distribution Width 15.5 % (11.0-16.0); White Blood Count 7.4 X10*3/uL (4.8-10.8)
--- NOTE | 2024-02-04 10:46 | ED.ABDPAIN ---
HPI - Abdominal Pain General Chief Complaint: Abdominal Pain Stated Complaint: ABD PAIN,BLADDER CA W/METS PER EMS Time Seen by Provider: 02/04/24 10:04 Source: patient Mode of arrival: ambulatory Limitations: no limitations History of Present Illness ED Provider: Veronica CAMP HPI narrative: 73 year old female with a PMHx of bladder cancer (s/p urostomy), scoliosis, HLD, and osteoporosis presents to the ER with partner and daughter at bed side due to lower abdominal and lower back pain since August. The patient states the pain worsened yesterday; feels sharp/achy, 05/07 and is constant. Oxycodone and fentanyl patch is not helping. Has associated nausea since this morning. Denies vomiting, fever, chills, and headache. Chronic constipation, took miralaxx. Denies urinary symptoms. Oncologist suggested to be seen in the ER. Related Data Home Medications ?Medication ?Instructions ?Recorded ?Confirmed aspirin 81 mg tablet,delayed 81 mg PO DAILY 02/04/23 08/19/23 release atorvastatin 20 mg tablet 40 mg PO BEDTIME 02/04/23 08/19/23 calcium citrate 250 mg See Rx Instructions PO TID 02/04/23 08/19/23 calcium-vitamin D3 5 mcg (200 unit) tablet (Citracal Regular) cholecalciferol (vitamin D3) 50 1,000 unit PO DAILY 02/04/23 08/19/23 mcg (2,000 unit) capsule fluoxetine 20 mg capsule 20 mg PO DAILY 02/04/23 08/19/23 multivitamin 1 tab PO DAILY 02/04/23 08/19/23 omeprazole 20 mg capsule,delayed 20 mg PO DAILY 02/04/23 08/19/23 release triamcinolone acetonide 55 mcg 2 spray intranasal DAILY 03/26/23 08/19/23 nasal spray aerosol (Nasacort) biotin 5,000 mcg chewable tablet 5,000 mcg PO DAILY 03/28/23 08/19/23 ondansetron 8 mg disintegrating 8 mg PO TID PRN Nausea 04/04/23 08/19/23 tablet metoprolol succinate 25 mg 25 mg PO DAILY 04/19/23 08/19/23 tablet,extended release 24 hr apixaban 5 mg tablet 5 mg PO BID 06/28/23 08/19/23 Previous Rx's ?Medication ?Instructions ?Recorded docusate sodium 100 mg capsule 100 mg PO BID #60 caps 04/04/23 (Colace) azithromycin 250 mg tablet 250 mg PO DAILY #6 tabs 10/18/23 lidocaine HCl 4 % topical cream 1 appl topical ONCE PRN Pain, Mild 11/01/23 (Pain Relief (lidocaine)) #100 grams Shower Chair (Chair, shower) #1 ea 01/10/24 oxycodone 20 mg tablet 20 mg PO Q6H PRN Pain (Scale Score 01/31/24 7-10) #90 tabs oxycodone 30 mg tablet,crush 30 mg PO Q12H #60 tabs 02/03/24 resistant,extended release 12 hr (OxyContin) cefuroxime axetil 250 mg tablet 250 mg PO BID 7 days #14 tabs 02/04/24 Allergies Allergy/AdvReac Type Severity Reaction Status Date / Time No Known Allergies Allergy Verified 02/04/24 10:11 Review of Systems Review of Systems Yes all other systems are reviewed and are negative Constitutional: Reports as per HPI Eyes: Reports as per HPI Reports as per HPI Cardiovascular: Reports as per HPI Respiratory: Reports as per HPI Gastrointestinal: Reports as per HPI Genitourinary: Reports as per HPI Musculoskeletal: Reports as per HPI Skin/Breast: Reports as per HPI Reports as per HPI Psychiatric: Reports as per HPI Endocrine: Reports as per HPI Hematologic/Lymphatic: Reports as per HPI Allergic/Immunologic: Reports as per HPI PMFSH Past Medical History Medical History Bladder cancer Scoliosis History of second hand smoke exposure Hx of gastroesophageal reflux (GERD) Hx of hyperlipidemia Hx of osteoporosis Surgical History Hx of cystoscopy History of ectopic History of laparoscopic appendectomy Hx of hiatal hernia Hx of total hysterectomy Family History Family History Mother Tumor of lung Father Bladder cancer Myocardial infarction Social History Social History (Updated 08/19/23 @ 09:19 by Fernanda Barkley CMA) Household Members: None Housing: House Do you presently have visiting nurse or other home services: No Alcohol intake: never Patient Tobacco Use Status: Former Tobacco user Tobacco use type: Cigarette Years Smoked: 3 Second Hand Smoke Exposure: No Advance Directives Date on File: 02/19/23 service: No Current occupational status: retired and disabled Physical Exam ED Vital Signs: Vital Signs - 24 hr 02/04/24 10:06 02/04/24 10:35 02/04/24 11:33 Temperature 98.7 F Pulse Rate 96 87 Respiratory Rate 16 16 16 Blood Pressure 135/74 124/64 Pulse Oximetry 96 99 Oxygen Delivery Method Room Air Room Air 02/04/24 12:33 02/04/24 14:00 02/04/24 14:08 Temperature 98.1 F Pulse Rate 80 77 Respiratory Rate 16 15 14 Blood Pressure 119/75 121/71 Pulse Oximetry 96 96 Oxygen Delivery Method Room Air Room Air 02/04/24 14:08 Temperature Pulse Rate Respiratory Rate 14 Blood Pressure Pulse Oximetry Oxygen Delivery Method BMI result Body Mass Index 19.4 Const General: cooperative and healthy appearing Orientation/consciousness: patient oriented x3 HENMT Head: Yes normal to inspection Ears: hearing grossly normal bilaterally General nose exam: Normal external nose present Face and sinus: Yes normal facial exam Eyes General: appearance normal, both eyes and all related structures Neck Neck: Yes normal visual inspection Chest Chest palpation & inspection: normal inspection of the chest Resp Effort & Inspection: normal respiratory effort Auscultation: clear to auscultation bilaterally Cardio Palpation: normal PMI Rate: regular rate Rhythm: regular rhythm GI Inspection: Yes normal to inspection Palpation (GI): Soft to palpation, Tenderness to palpation present (GI), no guarding and No Rebound tenderness present Auscultation: normal bowel sounds Neuro General: patient oriented x3 Extrem General: Yes normal to inspection Right upper extremity: normal to inspection Left upper extremity: normal to inspection Right lower extremity: normal to inspection Left lower extremity: normal to inspection Psych Appearance: grossly normal Speech and movement: Normal speech and movement present Affect: normal affect Attitude: cooperative Thought process: Normal thought process present Thought content: Normal thought content present Insight: Good insight present (Psych) Judgement: Good judgement present (Psych) Course Reevaluation(s) Reevaluation #1: CBC unremarkable. Chemistry no acute findings requiring intervention. Baseline elevation in BUN and creatinine. UA +/- infection will give ceftin. Discussed case with oncology who recommends admission to hospital for pain contorl Time: 14:00 Medical Decision Making Medical Decision Making [facility] Narrative: 73 year old female presents to the ER due to lower abdominal and lower back pain since August that has worsened yesterday. On arrival to the ER, the patient is hemodynamically stable and in no acute distress. On physical examination, abdomen is soft, non-distended, tender to palpitation on LUQ and LLQ, normal bowel sounds otherwise PE is unremarkable. History and PE is concerning for diverticulitis, ovarian cyst, IBD, IBS, SBO, LBO, low suspicion for mesenteric ischemia, GI bleed, ovarian torsion, UTI Labs are unremarkable. Plan to order U/A, CT abdomen/pelvis with contrast Differential Diagnosis diverticulitis, ovarian cyst, IBD, IBS, SBO, LBO, low suspicion for mesenteric ischemia, GI bleed, ovarian torsion, UTI Lab Data 02/04/24 10:33 02/04/24 10:33 Labs: Lab Results 02/04/24 02/04/24 Range/Units 10:33 11:42 WBC 7.4 (4.8-10.8) X10*3/uL RBC 3.99 L (4.20-5.50) X10*6/uL Hgb 12.2 (12.0-16.0) g/dl Hct 36.3 L (37.0-47.0) % MCV 91.0 (80.0-98.0) fL MCH 30.6 (27.0-33.0) pg MCHC 33.6 (31.0-35.0) g/dl RDW 15.5 (11.0-16.0) % Plt Count 180 (160-400) X10*3/uL MPV 8.8 L (9.4-12.3) fL Immature Gran % (Auto) 0.4 (0.0-0.4) % Neut % (Auto) 83.1 H (45-73) % Lymph % (Auto) 9.5 L (20-40) % [place] % (Auto) 6.9 (2-11) % Eos % (Auto) 0.0 (0-4) % Baso % (Auto) 0.1 (0-2) % Lymph # (Auto) 0.7 L (1.2-4.9) X10*3/uL [place] # (Auto) 0.5 (0.1-1.2) X10*3/uL Eos # (Auto) 0.0 (0.0-0.4) X10*3/uL Baso # (Auto) 0.0 (0.0-0.2) X10*3/uL Abs Immat Gran (auto) 0.03 (0.00-0.03) X10*3/uL Absolute Neuts (auto) 6.2 (2.0-8.3) x10*3/uL Absolute Nucleated RBC 0.000 (0.0-0.012) X10*3/uL Nucleated RBC % (auto) 0.0 (0.0-0.2) /100WBC Sodium 137 (135-145) mmol/L Potassium 3.9 (3.3-5.1) mmol/L Chloride 104 (96-108) mmol/L Carbon Dioxide 24 (22-29) mmol/L Anion Gap 13 (12-20) BUN 21 H (9-16) mg/dL Creatinine 0.68 (0.5-1.4) mg/dL Estim Creat Clear Calc 53.4 Estimated GFR > 60 Random Glucose 112 (60-115) mg/dL Calcium 10.0 (8.4-10.2) mg/dL Magnesium 1.9 (1.6-2.6) mg/dL Total Bilirubin 1.0 (0.0-1.0) mg/dL AST 44 H (5-31) U/L ALT 11 (0-31) U/L Alkaline Phosphatase 258 H (39-117) U/L Total Protein 6.7 (6.5-8.0) g/dL Albumin 3.9 (3.5-5.0) g/dL Lipase 15 (8-78) U/L Urine Color Yellow Urine Appearance Cloudy Urine pH 8.0 (5.0-9.0) Ur Specific [place] 1.015 (1.005-1.025) Urine Protein Trace (Neg-Trace) mg/dL Urine Glucose (UA) Negative (Negative) mg/dL Urine Ketones 15 (Negative) mg/dL Urine Blood Negative (Negative) Urine Nitrite Negative (Negative) Ur Leukocyte Esterase Small (1+) H (Negative) Urine RBC 0-2 (0-2) /HPF Urine WBC 6-10 H (0-5) /HPF Ur Squamous Epith Cells 0-2 (0-2) /HPF Calcium Oxalate Crystal Present Other Crystals Present Urine Bacteria 2+ (None Seen) Hyaline Casts 0-2 (0-2) /LPF Medications Administered Discontinued Medications Generic Name Dose Route Start Last Admin Trade Name Alberto PRN Reason Stop Dose Admin Cefuroxime Axetil 250 mg 02/04/24 13:37 02/04/24 13:45 Cefuroxime Axetil 250 Mg Tablet PO 02/04/24 13:38 250 mg ONCE ONE Administration Hydromorphone HCl 1 mg 02/04/24 12:31 02/04/24 12:36 Hydromorphone Hcl 1 Mg/Ml Syringe IVPUSH 02/04/24 12:32 1 mg ONCE ONE Administration Protocol Hydromorphone HCl 1 mg 02/04/24 13:50 02/04/24 14:08 Hydromorphone Hcl 1 Mg/Ml Syringe IVPUSH 02/04/24 13:51 1 mg ONCE ONE Administration Protocol Hydromorphone HCl 0.5 mg 02/04/24 13:51 02/04/24 14:08 Hydromorphone Hcl 0.5 Mg/0.5 Ml Syringe IVPUSH 02/04/24 13:52 0.5 mg ONCE ONE Administration Protocol Iohexol 100 ml 02/04/24 12:10 02/04/24 12:11 Iohexol 350 Mg/Ml 100 Ml Infus..Btl IV 02/04/24 12:11 85 ml ONCE ONE Administration Morphine Sulfate 4 mg 02/04/24 11:12 02/04/24 11:33 Morphine Sulfate 4 Mg/Ml Cartridge IVPUSH 02/04/24 11:13 4 mg ONCE ONE Administration Protocol Critical Care Time Critical Care Time Critical Care Time: Yes Total Critical Care Time: 35 Attestation: I attest to this time spent taking care of the patient, obtaining history, physical, reviewing labs, imaging, speaking to my attending, specialist or hospitalist. Discharge Plan Discharge Clinical Impression: Bladder cancer metastasized to bone, Abdominal pain, UTI (urinary tract infection) Patient Disposition: Admitted As Inpatient Additional Instructions: Take your medications as prescribed. If you were prescribed antibiotics today, it is important that you take your medication to their entirety, do not skip any doses, do not finish them early. Follow-up with your primary care provider this week. Return to the emergency department with new or worsening symptoms. In case of emergency call 911 Print Language: French
[2024-02-04 10:56] LABS: Alanine Aminotransferase 11 U/L (0-31); Albumin Level 3.9 g/dL (3.5-5.0); Alkaline Phosphatase 258 U/L (39-117); Anion Gap 13 (12-20); Aspartate Amino Transferase 44 U/L (5-31); Blood Urea Nitrogen 21 mg/dL (9-16); Carbon Dioxide 24 mmol/L (22-29); Chloride 104 mmol/L (96-108); Creatinine Clr Calc Pharmacy 53.4; Estimated Glomerular Filt Rate > 60; Glucose Random 112 mg/dL (60-115); Lipase 15 U/L (8-78); Magnesium 1.9 mg/dL (1.6-2.6); Potassium 3.9 mmol/L (3.3-5.1); Sodium 137 mmol/L (135-145); Total Protein 6.7 g/dL (6.5-8.0)
[2024-02-04] MEDS: Morphine Sulfate 4 MG/ML CARTRIDGE IVPUSH (11:33)
[2024-02-04 12:01] LABS: Appearance Urine Cloudy; Color Urine Yellow; Glucose Urine UA Negative (Negative); Leukocyte Esterase Urine Small (1+) (Negative); Nitrite Urine Negative (Negative); Specific Gravity - Urine 1.015 (1.005-1.025); UMIC TRIGGER UACC YES; Urine Blood Negative (Negative); Urine Ketones 15 mg/dL (Negative); Urine Protein Trace mg/dL (Neg-Trace)
[2024-02-04] MEDS: iohexoL 350 MG/ML 100 ML INFUS..BTL IV (12:11)
[2024-02-04 12:23] LABS: Bacteria Urine 2+ (None Seen); RBC Urine 0-2 /HPF (0-2); Squamous Epithelial Cell Urine 0-2 /HPF (0-2); UACC Culture Trigger YES
[2024-02-04 12:24] LABS: Calcium Oxalate Crystals Urine Present; Hyaline Casts Urine 0-2 /LPF (0-2); Other Crystals Urine Present
[2024-02-04] MEDS: HYDROmorphone HCl 1 MG/ML SYRINGE IVPUSH ×2 (12:36→14:08)
[2024-02-04] MEDS: cefuroxime axetiL 250 MG TABLET PO ×2 (13:45→21:37)
--- NOTE | 2024-02-04 13:53 | MHC.CM.ED ---
Patient came to the ER due to abd pain. Received telephone call from Aury of [facility]. They received referral from Dr Dowd's office and have been trying to get in contact with patient. T/W met with patient and her daughter/HCP, Aline. Explained Dr Dowd made a referral to A for palliative care for pain management. Also offered information from [facility] if patient was interested. Patient interested. Aury from [facility] made aware. However, Aury explained patient wouldn't qualify for palliative care and may need hospice. While patient is interested in a clinical trial in [place], Dr Dowd's office doesn't feel patient would be strong enough to participate. [facility] staff will be on-site to provide information on palliative/hosipce care. Continue to monitor for d/c needs.
--- NOTE | 2024-02-04 14:02 | P.CNHO_ITS ---
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 She went through a few courses of antibiotics and eventually had an ultrasound and subsequently CT abdomen and pelvis with contrast in January 2023 which revealed a large bladder tumor. She underwent TURBT on 02/19/2023 which revealed muscle invasive bladder cancer. She has a history of osteoporosis and is on Reclast. She is managed by an transit planning director. She briefly smoked less than pack a day for about 3 years in her early 20s. She has a history of inhaling 2nd hand smoke for many years at work. 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 She is up-to-date with screening mammogram and colonoscopies. She underwent hysterectomy in her [address]s. CT abdomen/pelvis with contrast performed in January 2023 showed a large bladder mass involving anterior superior wall of the bladder measuring 6 cm with stranding of perivesicular fat suggestive of extension outside the bladder wall. There is a 2nd 5 mm polypoid mass adjacent to left lateral bladder wall both suspicious for malignancy. No abnormal lymph nodes. She underwent transurethral resection on 02/19/2023. Pathology revealed A) left posterior wall lesion: High-grade papillary urothelial carcinoma noninvasive, no muscularis propria present. B) bladder superior wall lesion: High-grade urothelial carcinoma invasive into muscularis propria. Staging bone scan performed 02/28/2023 was negative for any suspicious osseous abnormality, indeterminate radiotracer activity overlying left maxillary region. Further scans such as x-ray or CT if appropriate was recommended. CT chest with contrast performed 02/28/2023 revealed a few subcentimeter, 3 mm pulmonary nodules, hepatic steatosis and moderate size hiatal hernia. Enlarged right lobe of thyroid further evaluation with ultrasound was recommended. Thyroid ultrasound performed 03/07/2023 revealed multinodular thyroid gland with subcentimeter nodules, no imaging follow-up was recommended. She started chemotherapy, cisplatin with gemcitabine on 04/04/2023. A week later she presented with NSTEMI and nonischemic cardiomyopathy. High sensitivity troponin was more than 1900. Transthoracic echocardiogram revealed LVEF of 25- 30% with akinesis of the entire mid and apical ventricular segments and hyperdynamic base suggestive of stress cardiomyopathy. Diagnostic angiogram revealed minimal luminal irregularities of the LMCA, 30% stenosis in the distal proximal LAD, minimal luminal irregularities of the LCX. Above findings indicated no significant coronary artery disease. Her overall presentation was felt to be related to stress related cardiomyopathy or Takotsubo cardiomyopathy. For her 2nd cycle, she received carboplatin with gemcitabine on 05/02/2023. She received a total of 3 cycles of neoadjuvant chemotherapy. She underwent radical cystectomy with ileal conduit be performed by Dr. Wilson on 07/17/2023 at [facility]. Pathology revealed multifocal/multiple papillary urothelial carcinomas, some invasive, high-grade tumor extends through muscularis propria into perivesical soft tissue. Margins negative. Extensive lymphovascular invasion present. Minimal treatment effect. Four lymph nodes examined, all negative. Pathological stage ypT3a N0. She had her Port-A-Cath repositioned a few weeks ago unfortunately developed right IJ DVT a week after procedure. She was seen at [facility]. She is now on Eliquis. She was started on adjuvant therapy with nivolumab 240 mg every 2 weeks for 1 year based on checkmate 274 trial. PDL1/NGS testing results to be obtained from [facility]. Unfortunately she presented with worsening pelvic pain. She underwent CT abdomen/pelvis with contrast on 09/30/2023 at [facility]. This revealed enhancing masslike soft tissue in the left ischioanal fossa suspicious for metastatic disease although could represent a fistula/inflammatory change given suspected internal focus of air. Left inguinal and retroperitoneal lymphadenopathy also suspicious for metastatic disease. Postsurgical changes related to cystectomy and new branching nodular opacities in the dependent right lower lobe which could be metastatic disease. PET scan performed 10/15/2023 revealed multiple FDG avid lymph nodes in the left groin, pelvis and retroperitoneum strongly suspicious for malignant metastasis. A few FDG avid osseous lesions present without CT correlate most prominently in the left acetabulum, T6 vertebral body and right lamina of C2. FDG avid ground- glass opacity in both lower lobes, nonspecific could be inflammatory pneumonitis. She had MRI of pelvis at [facility] on 10/13/2023 which revealed enhancing soft tissue in the left ischial anal fossa/perineum, enhancing soft tissue nodule in the right ischioanal fossa, enlarging left inguinal and iliac chain lymphadenopathy and irregular enhancement involving left pelvic musculature all consistent with metastatic disease. Signal abnormality/enhancement in left acetabulum, superior pubic ramus and ischium came could represent metastatic marrow involvement although there was no destructive focal lesions seen. Reactive marrow edema is a differential consideration. Increased pelvic ascites noted. HPI - Consult Narrative Reason for consult: Bladder cancer/worsening pain Narrative: Karmen Machuca is a 73 year old female well known to Oncology Service with a history of metastatic bladder cancer who is presenting to emergency department because of intractable pain. In the last few days she has developed worsening pelvic pain not responding to usual doses of narcotics. Recently she was started on OxyContin and breakthrough oxycodone dose was increased. Recent imaging has demonstrated progression of disease with increasing bone Mets in the pelvis and lower spine. She has been receiving palliative systemic therapy with Ev/nivolumab. Review of Systems - Constitutional Reports as per HPI, Reports fatigue, Reports lack of energy, Reports weakness, Reports weight loss - Cardiovascular Reports no additional cardiovascular complaints - Respiratory Reports no additional respiratory complaints - Neurologic Reports as per HPI Oncology Screenings - ECOG Performance Status ECOG Performance Status: 3 [facility] Medical History: Medical History (Last Reviewed 05/22/23 @ 14:02 by Alice Medina) Bladder cancer History of second hand smoke exposure Hx of gastroesophageal reflux (GERD) Hx of hyperlipidemia Hx of osteoporosis Scoliosis Family History: Family History (Last Reviewed 05/22/23 @ 14:02 by Alice Medina) Mother Tumor of lung Father Bladder cancer Myocardial infarction Surgical History: Surgical History (Last Reviewed 05/22/23 @ 14:02 by Alice Medina) History of ectopic History of laparoscopic appendectomy Hx of cystoscopy Hx of hiatal hernia Hx of total hysterectomy Social History: Social History (Last Updated 08/19/23 @ 09:19 by Fernanda Barkley [facility]) Living Situation History: Household Members: None Housing: House Do you presently have visiting nurse or other home services: No Tobacco History: Patient Tobacco Use Status: Former Tobacco user Tobacco use type: Cigarette Years Smoked: 3 Second Hand Smoke Exposure: No Advance Directives: Advance Directives Date on File: 02/19/23 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: No Current occupational status: retired Current occupational status: disabled Home Medications and Allergies Current Medications: Current Medications Cefuroxime Axetil (Cefuroxime Axetil 250 Mg Tablet) 250 mg PO BID MARY JO Home Medications ?Medication ?Instructions ?Recorded ?Confirmed ?Type aspirin 81 mg tablet,delayed 81 mg PO DAILY 02/04/23 08/19/23 History release atorvastatin 20 mg tablet 40 mg PO BEDTIME 02/04/23 08/19/23 History calcium citrate 250 mg See Rx Instructions PO TID 02/04/23 08/19/23 History calcium-vitamin D3 5 mcg (200 unit) tablet (Citracal Regular) fluoxetine 20 mg capsule 20 mg PO DAILY 02/04/23 08/19/23 History multivitamin 1 tab PO DAILY 02/04/23 08/19/23 History omeprazole 20 mg capsule,delayed 20 mg PO DAILY 02/04/23 08/19/23 History release triamcinolone acetonide 55 mcg 2 spray intranasal DAILY 03/26/23 08/19/23 History nasal spray aerosol (Nasacort) biotin 5,000 mcg chewable tablet 5,000 mcg PO DAILY 03/28/23 08/19/23 History ondansetron 8 mg disintegrating 8 mg PO TID PRN Nausea 04/04/23 08/19/23 History tablet metoprolol succinate 25 mg 25 mg PO DAILY 04/19/23 08/19/23 History tablet,extended release 24 hr apixaban 5 mg tablet 5 mg PO BID 06/28/23 08/19/23 History calcium carbonate 600 mg-vitamin 1 tab PO BEDTIME 02/04/24 02/04/24 History D3 5 mcg (200 unit) tablet cholecalciferol (vitamin D3) 25 25 mcg PO DAILY 02/04/24 02/04/24 History mcg (1,000 unit) capsule (Vitamin D3) fentanyl 50 mcg/hr transdermal 1 patch transdermal Q3D 02/04/24 02/04/24 History patch Allergies Allergy/AdvReac Type Severity Reaction Status Date / Time No Known Allergies Allergy Verified 02/04/24 10:11 Physical Exam Vital signs: Vital Signs Temp 98.1 F 02/04/24 14:00 Pulse 77 02/04/24 14:00 Resp 15 02/04/24 14:00 BP 121/71 02/04/24 14:00 Pulse Ox 96 02/04/24 14:00 O2 Del Method Room Air 02/04/24 14:00 Intake & Output 02/03/24 02/04/24 02/04/24 18:59 06:59 18:59 Other: Weight 46.6 kg Weight 46.6 kg - Constitutional Present: mild distress, thin - Routine HEENT Exam Head: Present: normal inspection Eye: Present: conjunctivae pale - Routine Respiratory Exam Present: CTAB. Absent: accessory muscle use - Routine Cardiovascular Exam Cardiovascular: Present: S1, S2 - Routine Abdominal Exam Absent: mass Hem/Onc Consult Result - Labs CBC & Chem 7: 02/04/24 10:33 02/04/24 10:33 Labs: Short CBC 02/04/24 Range/Units 10:33 WBC 7.4 (4.8-10.8) X10*3/uL Hgb 12.2 (12.0-16.0) g/dl Hct 36.3 L (37.0-47.0) % Plt Count 180 (160-400) X10*3/uL BMP 02/04/24 10:33 Sodium 137 Potassium 3.9 Chloride 104 Carbon Dioxide 24 BUN 21 H Creatinine 0.68 Calcium 10.0 Liver Function 02/04/24 Range/Units 10:33 Total Bilirubin 1.0 (0.0-1.0) mg/dL AST 44 H (5-31) U/L ALT 11 (0-31) U/L Alkaline Phosphatase 258 H (39-117) U/L Albumin 3.9 (3.5-5.0) g/dL Urine 02/04/24 Range/Units 11:42 Urine Color Yellow Urine Appearance Cloudy Urine pH 8.0 (5.0-9.0) Ur Specific [place] 1.015 (1.005-1.025) Urine Protein Trace (Neg-Trace) mg/dL Urine Glucose (UA) Negative (Negative) mg/dL Assessment and Plan Patient Active problem list reviewed?: Yes (1) Bladder cancer metastasized to bone Status: Acute Assessment and plan: 1. This is a pleasant 73-year-old woman who has been diagnosed with muscle invasive bladder cancer, clinical stage T3N0, stage III. She was diagnosed with stage IV/recurrent disease in September 2023. PDL1, negative. NGS testing performed by [employer] revealed: TMB low, MSI stable genomic alterations found in BAP1, CDKN2A, CDKN2B, CREBBP, MTAP, PTEN, STAG2. She was switched to pembrolizumab with enfortumab vedotin for metastatic bladder cancer in the first-line setting on 10/11/2023. PET scan performed at [facility] on 01/01/2024 unfortunately showed new bilateral pulmonary nodules max SUV of 4.6, right paratracheal lymph node, right infrahilar lymph node, left para-aortic lymph nodes. Interval decrease in size of FDG activity of left inguinal lymph node, worsening bone metastasis involving T12, L1, L3 vertebral body as well as left acetabulum, left symphysis pubis and left ischial tuberosity SUV ranging from 2.6 to 11.4. She has worsening pelvic pain related to progression of disease with bone Mets as well as lymphadenopathy. She is now receiving hydromorphone IV. Patient's daughter and significant other were at the bedside. Patient has decided on stopping all treatments including negative radiation therapy which was discussed for pain control. She would like to go on inpatient hospice care as she lives alone at home. She is being admitted for pain control. Appreciate hospitalist input. - Time Spent With Patient Time Spent with Patient (in minutes): 20
[2024-02-04] MEDS: HYDROmorphone HCl 0.5 MG/0.5 ML SYRINGE IVPUSH (14:08)
--- NOTE | 2024-02-04 15:02 | PM.IMHP ---
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 The patient reports that the pain has been getting worse over the last week with no control even with the Oxycodone, Oxycontine and fentanyl. Patient agrees that chemotherapy did not help controlling her condition and that she reached a point where she needs to have more quality of life and better pain control. We discussed hospice care and she is ok with talking to hospice team. Admitted for pain management. Review of Systems Review of Systems: having generalized pain and weakness No chest pain, palpitation No shortness of breath or coughing lower abdominal pain, mild nausea No urinary symptoms PMFSH Medical History Bladder cancer Scoliosis History of second hand smoke exposure Hx of gastroesophageal reflux (GERD) Hx of hyperlipidemia Hx of osteoporosis Family History Mother Tumor of lung Father Bladder cancer Myocardial infarction Surgical History Hx of cystoscopy History of ectopic History of laparoscopic appendectomy Hx of hiatal hernia Hx of total hysterectomy Social History Household Members: None Housing: House Do you presently have visiting nurse or other home services: No Alcohol intake: never Patient Tobacco Use Status: Former Tobacco user Tobacco use type: Cigarette Years Smoked: 3 Second Hand Smoke Exposure: No Advance Directives Date on File: 02/19/23 service: No Current occupational status: retired and disabled Meds Allergies Allergy/AdvReac Type Severity Reaction Status Date / Time No Known Allergies Allergy Verified 02/04/24 10:11 Active Medications: Current Medications Acetaminophen (Acetaminophen 325 Mg Tablet) 650 mg PO Q6H PRN PRN Reason: Pain, Mild (Pain Scale 1-3), fever or headache Benzonatate (Benzonatate 100 Mg Capsule) 100 mg PO TID PRN PRN Reason: Cough Calcium Carbonate (Calcium Carbonate 750 Mg Tab.Chew) 750 mg PO Q4H PRN PRN Reason: Heartburn Cefuroxime Axetil (Cefuroxime Axetil 250 Mg Tablet) 250 mg PO BID MARY JO Hydromorphone HCl (Hydromorphone Hcl 1 Mg/Ml Syringe) 1 mg IVPUSH Q3H PRN; Protocol PRN Reason: Pain, Severe (Pain Scale 7-10) Magnesium Hydroxide (Milk Of Magnesia 30 Ml Oral.Susp) 30 ml PO DAILY PRN PRN Reason: Constipation Melatonin (Melatonin 3 Mg Tablet) 6 mg PO BEDTIME PRN PRN Reason: Insomnia Ondansetron HCl (Ondansetron Hcl 4 Mg/2 Ml Vial) 4 mg IVPUSH Q8H PRN PRN Reason: Nausea and Vomiting Oxycodone HCl (Oxycodone Hcl Immed Release 5 Mg Tablet) 20 mg PO Q6H PRN PRN Reason: Pain, Moderate(Pain Scale 4-6) Sodium Chloride (0.9 % Sodium Chloride Flush 3 Ml Syringe) 3 ml IVFLUSH QSHIFT MARY JO Temazepam (Temazepam 15 Mg Capsule) 15 mg PO BEDTIME PRN PRN Reason: Insomnia Home Medications ?Medication ?Instructions ?Recorded ?Confirmed ?Last Taken ?Type aspirin 81 mg tablet,delayed 81 mg PO DAILY 02/04/23 08/19/23 04/29/23 History release atorvastatin 20 mg tablet 40 mg PO BEDTIME 02/04/23 08/19/23 02/17/23 History calcium citrate 250 mg See Rx Instructions PO TID 02/04/23 08/19/23 02/18/23 History calcium-vitamin D3 5 mcg (200 unit) tablet (Citracal Regular) fluoxetine 20 mg capsule 20 mg PO DAILY 02/04/23 08/19/23 02/18/23 History multivitamin 1 tab PO DAILY 02/04/23 08/19/23 02/18/23 History omeprazole 20 mg capsule,delayed 20 mg PO DAILY 02/04/23 08/19/23 02/18/23 History release triamcinolone acetonide 55 mcg 2 spray intranasal DAILY 03/26/23 08/19/23 Unknown History nasal spray aerosol (Nasacort) biotin 5,000 mcg chewable tablet 5,000 mcg PO DAILY 03/28/23 08/19/23 Unknown History ondansetron 8 mg disintegrating 8 mg PO TID PRN Nausea 04/04/23 08/19/23 04/30/23 08:00 History tablet metoprolol succinate 25 mg 25 mg PO DAILY 04/19/23 08/19/23 Unknown History tablet,extended release 24 hr apixaban 5 mg tablet 5 mg PO BID 06/28/23 08/19/23 Unknown History calcium carbonate 600 mg-vitamin 1 tab PO BEDTIME 02/04/24 02/04/24 Unknown History D3 5 mcg (200 unit) tablet cholecalciferol (vitamin D3) 25 25 mcg PO DAILY 02/04/24 02/04/24 Unknown History mcg (1,000 unit) capsule (Vitamin D3) fentanyl 50 mcg/hr transdermal 1 patch transdermal Q3D 02/04/24 Unknown History patch Physical Exam Vital Signs and Narrative: Vital Signs: Last Vital Signs Temp 98.1 F 02/04/24 14:00 Pulse 77 02/04/24 14:00 Resp 14 02/04/24 14:08 BP 121/71 02/04/24 14:00 Pulse Ox 96 02/04/24 14:00 O2 Del Method Room Air 02/04/24 14:00 BMI result Body Mass Index 19.4 Const: Other: Constitutional : interactive, not in distress Cardiovascular : no JVP, no lower extremity edema Respiratory : bilateral chest movement, not in resp distress Gastrointestinal: soft, lax, lower abd tenderness Skin : Warm, Dry Neurological : Alert & oriented , No focal deficit Results Labs 02/04/24 10:33 02/04/24 10:33 Labs: Laboratory Results - last 24 hr 02/04/24 02/04/24 10:33 11:42 MCV 91.0 MCH 30.6 MCHC 33.6 RDW 15.5 Plt Count 180 MPV 8.8 L Immature Gran % (Auto) 0.4 Neut % (Auto) 83.1 H Lymph % (Auto) 9.5 L [place] % (Auto) 6.9 Eos % (Auto) 0.0 Baso % (Auto) 0.1 Lymph # (Auto) 0.7 L [place] # (Auto) 0.5 Eos # (Auto) 0.0 Baso # (Auto) 0.0 Abs Immat Gran (auto) 0.03 Absolute Neuts (auto) 6.2 Absolute Nucleated RBC 0.000 Nucleated RBC % (auto) 0.0 Anion Gap 13 Estim Creat Clear Calc 53.4 Estimated GFR > 60 Random Glucose 112 Calcium 10.0 Magnesium 1.9 Total Bilirubin 1.0 AST 44 H ALT 11 Alkaline Phosphatase 258 H Total Protein 6.7 Albumin 3.9 Lipase 15 Urine Color Yellow Urine Appearance Cloudy Urine pH 8.0 Ur Specific [place] 1.015 Urine Protein Trace Urine Glucose (UA) Negative Urine Ketones 15 Urine Blood Negative Urine Nitrite Negative Ur Leukocyte Esterase Small (1+) H Urine RBC 0-2 Urine WBC 6-10 H Ur Squamous Epith Cells 0-2 Calcium Oxalate Crystal Present Other Crystals Present Urine Bacteria 2+ Hyaline Casts 0-2 Assessment and Plan (1) Bladder cancer metastasized to bone: Status: Acute (2) Abdominal pain: Status: Acute (3) Cancer associated pain: Status: Acute Plan A 73 years old lady with PMH of Bladder Ca post surgery on suprapubic cath, 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 Intractable pain 2/2 Metastatic bladder cancer to bones IV Dilaudid PO Oxycodone Hospice team consult Generalized weakness PT eval Constipation 2/2 Narcotics Start Lactulose and Miralax Hx DVT, continue eliquis GERD, Omeprazole CAD, Statin, ASA and Metoprolol DVT PPx Eliquis Goals of care discussed. patient signed MOLST form of DNR\DNI. The patient will likely need 2 overnight hospital stay for pain management pending hospice consult and discharge planning . Quality Stroke Does the patient have a stroke diagnosis?: No VTE Prior VTE?: Yes VTE Risk Level:: Medical - moderate - high VTE Device Contraindication: Treatment Not Indicated VTE Drug Contraindication: Treatment Not Indicated
--- NOTE | 2024-02-04 15:37 | PHA.MEDREC ---
[facility] 17:56: Went to speak to patient to clarify her pain med regimen. She (and daughter at bedside) states that she has been taking fentanyl 50 mcg since september. She has a 1 time dose of 25 mcg on right now (patch was put on yesterday 02/03/24, supposed to be removed tomorrow 02/05/24) then she's supposed to be off of fentanyl and just be on oxycontin and oxycodone. She started taking oxycontin yesterday 02/03/24. Addendum entered by Rocky Rosenberg, [facility] 02/04/24 16:48: Dr. Marti wants the fentanyl patch to be in home med list (she's supposed to be weening off of it). Original Note: Pharmacy Consult ? Medication Reconciliation Pharmacy has completed the medication reconciliation. Confirmed medications with patient and family at bedside. Confirmed their pain meds and daughter stated the patient is taking a Oxycodone 30mg 1 Q6H PRN pain, and she was on a Fentanyl patch once every 3 days but she was suppose to be weening off of it to use Oxycontin 30mg 1 Q12H but patient and daughter informed me that she has been taking them both and patient noticed thats when she started not feeling well.
[2024-02-04] MEDS: Lactulose 20 GM/30 ML SOLUTION PO (16:15)
[2024-02-04] MEDS: 0.9 % Sodium Chloride Flush 3 ML SYRINGE IVFLUSH (16:15)
[2024-02-04] MEDS: Acetaminophen 325 MG TABLET 650 MG PO (17:00)
--- NOTE | 2024-02-04 17:54 | HE.PHANOTE ---
RE: FENTANYL PATCH REMOVAL Spoke to nurse Madalyn about removing pt's fentanyl patch now per Dr. Marti's order (pt is to start oxycontin tomorrow (02/05/24 night).
--- NOTE | 2024-02-04 17:56 | PC.NURSE ---
Current Fentanyl patch removed 25mcg, witnessed by Jeanine MAN supervisor blueprinting and photocopy
[2024-02-04] MEDS: Docusate Sodium 100 MG CAPSULE PO (21:37)
[2024-02-04] MEDS: Apixaban 5 MG TABLET PO (21:37)
[2024-02-04] MEDS: oxyCODONE HCl Immed Release 5 MG TABLET 20 MG PO (21:37)
[2024-02-05 00:25] VITALS: RESP 18
[2024-02-05] MEDS: HYDROmorphone HCl 1 MG/ML SYRINGE IVPUSH ×5 (00:25→16:45)
[2024-02-05] MEDS: 0.9 % Sodium Chloride Flush 3 ML SYRINGE IVFLUSH ×4 (00:28→19:09)
[2024-02-05 01:00] VITALS: BP 122/69; PULSE 78; RESP 16; TEMP 36.8; O2SAT 98
[2024-02-05] MEDS: Omeprazole 20 MG CAPSULE.DR PO (05:30)
[2024-02-05 08:00] VITALS: BP 139/72; PULSE 86; RESP 16; TEMP 36.6; O2SAT 96
[2024-02-05] MEDS: Docusate Sodium 100 MG CAPSULE PO ×2 (08:02→20:40)
[2024-02-05] MEDS: cefuroxime axetiL 250 MG TABLET PO ×2 (08:02→20:40)
[2024-02-05] MEDS: Apixaban 5 MG TABLET PO ×2 (08:02→20:40)
[2024-02-05] MEDS: FLUoxetine HCl 20 MG CAPSULE PO (08:02)
[2024-02-05] MEDS: Metoprolol Succinate ER 25 MG TAB.ER.24H PO (08:02)
[2024-02-05] MEDS: oxyCODONE HCl Immed Release 5 MG TABLET 20 MG PO ×2 (08:04→12:01)
--- NOTE | 2024-02-05 09:00 | MHC.CM.PN ---
CM MET WITH PT AND DAUGHTERJAMAR AT BEDSIDE PT LIVES ALONE AND WAS INDEPENDENT WITH [facility] SHE HAS A CANE AND A WALKER HCP ON FILE PCP: ALBA HANDLEY IMM DELIVERED PT WILL DC HOME WITH 18/02 CARE PROVIDED BY FAMILY AND [facility] FAMILY WILL BE PREPARING PTS HOME FOR DME DELIVERY, DC EXPECTED SATURDAY OR SATURDAY BLS TRANSPORT
[2024-02-05] MEDS: LORazepam 0.5 MG TABLET PO (10:48)
[2024-02-05] MEDS: Ibuprofen 400 MG TABLET PO ×2 (12:00→16:32)
[2024-02-05] MEDS: Acetaminophen 325 MG TABLET 650 MG PO ×2 (12:00→16:31)
--- NOTE | 2024-02-05 12:09 | P.PNIM_ITS ---
Subjective Subjective Date of Service: 02/05/24 Interval History: seen and evaluated this morning still reporting pain that can be severe tolerating IV and PO meds no other events Review of Systems Review of Systems: Yes all other systems are reviewed and are negative Physical Exam 2 Vital Signs: Vital Signs: Last Vital Signs Temp 97.9 F 02/05/24 08:00 Pulse 86 02/05/24 08:00 Resp 16 02/05/24 08:00 BP 139/72 02/05/24 08:00 Pulse Ox 96 02/05/24 08:00 O2 Del Method Room Air 02/05/24 08:00 BMI result Body Mass Index 19.4 Const: Other: Constitutional : interactive, not in distress Cardiovascular : no JVP, no lower extremity edema Respiratory : bilateral chest movement, not in resp distress Gastrointestinal: soft, lax, lower abd tenderness Skin : Warm, Dry Neurological : Alert & oriented , No focal deficit Objective Data Active Medications Acetaminophen (Acetaminophen 325 Mg Tablet) 650 mg PO TIDWM [facility] Last Admin: 02/05/24 12:00 Dose: 650 mg Documented By: ANAI Apixaban (Apixaban 5 Mg Tablet) 5 mg PO BID [facility] Last Admin: 02/05/24 08:02 Dose: 5 mg Documented By: FELICITAS Benzonatate (Benzonatate 100 Mg Capsule) 100 mg PO TID PRN PRN Reason: Cough Calcium Carbonate (Calcium Carbonate 750 Mg Tab.Chew) 750 mg PO Q4H PRN PRN Reason: Heartburn Cefuroxime Axetil (Cefuroxime Axetil 250 Mg Tablet) 250 mg PO BID [facility] Last Admin: 02/05/24 08:02 Dose: 250 mg Documented By: FELICITAS Docusate Sodium (Docusate Sodium 100 Mg Capsule) 100 mg PO BID [facility] Last Admin: 02/05/24 08:02 Dose: 100 mg Documented By: FELICITAS Fluoxetine HCl (Fluoxetine Hcl 20 Mg Capsule) 20 mg PO DAILY [facility] Last Admin: 02/05/24 08:02 Dose: 20 mg Documented By: FELICITAS Hydromorphone HCl (Hydromorphone Hcl 1 Mg/Ml Syringe) 1 mg IVPUSH Q3H PRN; Protocol PRN Reason: Pain, Severe (Pain Scale 7-10) Last Admin: 02/05/24 09:13 Dose: 1 mg Documented By: FELICITAS Ibuprofen (Ibuprofen 400 Mg Tablet) 400 mg PO TIDWM [facility] Last Admin: 02/05/24 12:00 Dose: 400 mg Documented By: ANAI Lactulose (Lactulose 20 Gm/30 Ml Solution) 20 gm PO BID [facility] Last Admin: 02/05/24 08:04 Dose: Not Given Documented By: FELICITAS Non-Admin Reason: Patient Refused Lorazepam (Lorazepam 0.5 Mg Tablet) 0.5 mg PO Q8H PRN PRN Reason: Anxiety Magnesium Hydroxide (Milk Of Magnesia 30 Ml Oral.Susp) 30 ml PO DAILY PRN PRN Reason: Constipation Melatonin (Melatonin 3 Mg Tablet) 6 mg PO BEDTIME PRN PRN Reason: Insomnia Metoprolol Succinate (Metoprolol Succinate Er 25 Mg Tab.Er.24h) 25 mg PO DAILY [facility]; Protocol Last Admin: 02/05/24 08:02 Dose: 25 mg Documented By: FELICITAS Omeprazole (Omeprazole 20 Mg Capsule.Dr) 20 mg PO DAILY@0630 [facility] Last Admin: 02/05/24 05:30 Dose: 20 mg Documented By: AVNI Ondansetron HCl (Ondansetron Hcl 4 Mg/2 Ml Vial) 4 mg IVPUSH Q8H PRN PRN Reason: Nausea and Vomiting Oxycodone HCl (Oxycodone Hcl Er 10 Mg Tab.Er.12h) 30 mg PO BID [facility] Oxycodone HCl (Oxycodone Hcl Immed Release 5 Mg Tablet) 20 mg PO Q4H PRN PRN Reason: Pain, Moderate(Pain Scale 4-6) Last Admin: 02/05/24 12:01 Dose: 20 mg Documented By: ANAI Polyethylene Glycol (Polyethylene Glycol 3350 17 Gm Powd.Pack) 17 gm PO BID [facility] Last Admin: 02/05/24 08:04 Dose: Not Given Documented By: FELICITAS Non-Admin Reason: Patient Refused Sodium Chloride (0.9 % Sodium Chloride Flush 3 Ml Syringe) 3 ml IVFLUSH QSHIFT [facility] Last Admin: 02/05/24 08:08 Dose: 3 ml Documented By: FELICITAS Labs 02/04/24 10:33 02/04/24 10:33 Labs: Laboratory Results - last 24 hr 02/04/24 11:42 Urine Color Yellow Urine Appearance Cloudy Urine pH 8.0 Ur Specific [place] 1.015 Urine Protein Trace Urine Glucose (UA) Negative Urine Ketones 15 Urine Blood Negative Urine Nitrite Negative Ur Leukocyte Esterase Small (1+) H Urine RBC 0-2 Urine WBC 6-10 H Ur Squamous Epith Cells 0-2 Calcium Oxalate Crystal Present Other Crystals Present Urine Bacteria 2+ Hyaline Casts 0-2 Assessment and Plan (1) UTI (urinary tract infection): Status: Acute (2) Abdominal pain: Status: Acute (3) Bladder cancer metastasized to bone: Status: Acute Plan A 73 years old lady with PMH of Bladder Ca post surgery on suprapubic cath, 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 Intractable pain 2/2 Metastatic bladder cancer to bones PRN IV Dilaudid PO Oxycodone 20 mg Q4 Oxycontinue 30 mg bid Omeprazole daily Tylenol and Advil ATC Ativan PRN for anxiety Hospice team consult with goal to transition her to PO pain medications only Generalized weakness PT eval Constipation 2/2 Narcotics Lactulose and Miralax Hx DVT, continue eliquis GERD, Omeprazole CAD, Statin, ASA and Metoprolol UTI pending cultures on Ceftin PO DVT PPx Eliquis The patient will likely need overnight hospital stay for pain management pending hospice consult and discharge planning . Quality Stroke Does the patient have a stroke diagnosis?: No VTE Prior VTE?: Yes VTE Risk Level:: Medical - moderate - high VTE Device Contraindication: Treatment Not Indicated VTE Drug Contraindication: Treatment Not Indicated
[2024-02-05 12:12] VITALS: BP 172/79; PULSE 70; RESP 14; TEMP 36.2; O2SAT 94
--- NOTE | 2024-02-05 13:09 | PM.HEMONCPN ---
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 She went through a few courses of antibiotics and eventually had an ultrasound and subsequently CT abdomen and pelvis with contrast in January 2023 which revealed a large bladder tumor. She underwent TURBT on 02/19/2023 which revealed muscle invasive bladder cancer. She has a history of osteoporosis and is on Reclast. She is managed by an production support supervisor. She briefly smoked less than pack a day for about 3 years in her early 20s. She has a history of inhaling 2nd hand smoke for many years at work. 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 She is up-to-date with screening mammogram and colonoscopies. She underwent hysterectomy in her [address]. CT abdomen/pelvis with contrast performed in January 2023 showed a large bladder mass involving anterior superior wall of the bladder measuring 6 cm with stranding of perivesicular fat suggestive of extension outside the bladder wall. There is a 2nd 5 mm polypoid mass adjacent to left lateral bladder wall both suspicious for malignancy. No abnormal lymph nodes. She underwent transurethral resection on 02/19/2023. Pathology revealed A) left posterior wall lesion: High-grade papillary urothelial carcinoma noninvasive, no muscularis propria present. B) bladder superior wall lesion: High-grade urothelial carcinoma invasive into muscularis propria. Staging bone scan performed 02/28/2023 was negative for any suspicious osseous abnormality, indeterminate radiotracer activity overlying left maxillary region. Further scans such as x-ray or CT if appropriate was recommended. CT chest with contrast performed 02/28/2023 revealed a few subcentimeter, 3 mm pulmonary nodules, hepatic steatosis and moderate size hiatal hernia. Enlarged right lobe of thyroid further evaluation with ultrasound was recommended. Thyroid ultrasound performed 03/07/2023 revealed multinodular thyroid gland with subcentimeter nodules, no imaging follow-up was recommended. She started chemotherapy, cisplatin with gemcitabine on 04/04/2023. A week later she presented with NSTEMI and nonischemic cardiomyopathy. High sensitivity troponin was more than 1900. Transthoracic echocardiogram revealed LVEF of 25-30% with akinesis of the entire mid and apical ventricular segments and hyperdynamic base suggestive of stress cardiomyopathy. Diagnostic angiogram revealed minimal luminal irregularities of the LMCA, 30% stenosis in the distal proximal LAD, minimal luminal irregularities of the LCX. Above findings indicated no significant coronary artery disease. Her overall presentation was felt to be related to stress related cardiomyopathy or Takotsubo cardiomyopathy. For her 2nd cycle, she received carboplatin with gemcitabine on 05/02/2023. She received a total of 3 cycles of neoadjuvant chemotherapy. She underwent radical cystectomy with ileal conduit be performed by Dr. Wilson on 07/17/2023 at [facility]. Pathology revealed multifocal/multiple papillary urothelial carcinomas, some invasive, high-grade tumor extends through muscularis propria into perivesical soft tissue. Margins negative. Extensive lymphovascular invasion present. Minimal treatment effect. Four lymph nodes examined, all negative. Pathological stage [id number] N0. She had her Port-A-Cath repositioned a few weeks ago unfortunately developed right IJ DVT a week after procedure. She was seen at [facility]. She is now on Eliquis. She was started on adjuvant therapy with nivolumab 240 mg every 2 weeks for 1 year based on checkmate 274 trial. PDL1/NGS testing results to be obtained from [facility]. Unfortunately she presented with worsening pelvic pain. She underwent CT abdomen/pelvis with contrast on 09/30/2023 at [facility]. This revealed enhancing masslike soft tissue in the left ischioanal fossa suspicious for metastatic disease although could represent a fistula/inflammatory change given suspected internal focus of air. Left inguinal and retroperitoneal lymphadenopathy also suspicious for metastatic disease. Postsurgical changes related to cystectomy and new branching nodular opacities in the dependent right lower lobe which could be metastatic disease. PET scan performed 10/15/2023 revealed multiple FDG avid lymph nodes in the left groin, pelvis and retroperitoneum strongly suspicious for malignant metastasis. A few FDG avid osseous lesions present without CT correlate most prominently in the left acetabulum, T6 vertebral body and right lamina of C2. FDG avid ground-glass opacity in both lower lobes, nonspecific could be inflammatory pneumonitis. She had MRI of pelvis at [facility] on 10/13/2023 which revealed enhancing soft tissue in the left ischial anal fossa/perineum, enhancing soft tissue nodule in the right ischioanal fossa, enlarging left inguinal and iliac chain lymphadenopathy and irregular enhancement involving left pelvic musculature all consistent with metastatic disease. Signal abnormality/enhancement in left acetabulum, superior pubic ramus and ischium came could represent metastatic marrow involvement although there was no destructive focal lesions seen. Reactive marrow edema is a differential consideration. Increased pelvic ascites noted. Interval History Interval history: Karmen Machuca is a 73 year old female well known to Oncology Service with a history of metastatic bladder cancer who is presenting to emergency department because of intractable pain. In the last few days she has developed worsening pelvic pain not responding to usual doses of narcotics. Recently she was started on OxyContin and breakthrough oxycodone dose was increased. Recent imaging has demonstrated progression of disease with increasing bone Mets in the pelvis and lower spine. She has been receiving palliative systemic therapy with Ev/nivolumab. She continues to complain of considerable pain, she remains on IV Dilaudid. Review of Systems - Neurologic Reports as per HPI, Reports weakness [facility] Medical History: Medical History (Last Reviewed 02/04/24 @ 15:28 by Steve Marti MD) Bladder cancer History of second hand smoke exposure Hx of gastroesophageal reflux (GERD) Hx of hyperlipidemia Hx of osteoporosis Scoliosis Family History: Family History (Last Reviewed 02/04/24 @ 15:28 by Steve Marti MD) Mother Tumor of lung Father Bladder cancer Myocardial infarction Surgical History: Surgical History (Last Reviewed 02/04/24 @ 15:28 by Steve Marti MD) History of ectopic History of laparoscopic appendectomy Hx of cystoscopy Hx of hiatal hernia Hx of total hysterectomy Social History: Social History (Last Reviewed 02/04/24 @ 15:28 by Steve Marti MD) Living Situation History: Household Members: None Housing: House Do you presently have visiting nurse or other home services: No Tobacco History: Patient Tobacco Use Status: Former Tobacco user Tobacco use type: Cigarette Years Smoked: 3 Second Hand Smoke Exposure: No Advance Directives: Advance Directives Date on File: 02/19/23 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: No Current occupational status: retired Current occupational status: disabled Home Medications and Allergies Current Medications: Current Medications Acetaminophen (Acetaminophen 325 Mg Tablet) 650 mg PO TIDWM [facility] Last Admin: 02/05/24 12:00 Dose: 650 mg Apixaban (Apixaban 5 Mg Tablet) 5 mg PO BID [facility] Last Admin: 02/05/24 08:02 Dose: 5 mg Benzonatate (Benzonatate 100 Mg Capsule) 100 mg PO TID PRN PRN Reason: Cough Calcium Carbonate (Calcium Carbonate 750 Mg Tab.Chew) 750 mg PO Q4H PRN PRN Reason: Heartburn Cefuroxime Axetil (Cefuroxime Axetil 250 Mg Tablet) 250 mg PO BID [facility] Last Admin: 02/05/24 08:02 Dose: 250 mg Dexamethasone Sodium Phosphate (Dexamethasone Sod Phosphate 4 Mg/Ml Vial) 4 mg IVPUSH Q6H [facility] Docusate Sodium (Docusate Sodium 100 Mg Capsule) 100 mg PO BID [facility] Last Admin: 02/05/24 08:02 Dose: 100 mg Fluoxetine HCl (Fluoxetine Hcl 20 Mg Capsule) 20 mg PO DAILY [facility] Last Admin: 02/05/24 08:02 Dose: 20 mg Hydromorphone HCl (Hydromorphone Hcl 1 Mg/Ml Syringe) 1 mg IVPUSH Q3H PRN; Protocol PRN Reason: Pain, Severe (Pain Scale 7-10) Last Admin: 02/05/24 12:29 Dose: 1 mg Ibuprofen (Ibuprofen 400 Mg Tablet) 400 mg PO TIDWM [facility] Last Admin: 02/05/24 12:00 Dose: 400 mg Lactulose (Lactulose 20 Gm/30 Ml Solution) 20 gm PO BID [facility] Last Admin: 02/05/24 08:04 Dose: Not Given Lorazepam (Lorazepam 0.5 Mg Tablet) 0.5 mg PO Q8H PRN PRN Reason: Anxiety Magnesium Hydroxide (Milk Of Magnesia 30 Ml Oral.Susp) 30 ml PO DAILY PRN PRN Reason: Constipation Melatonin (Melatonin 3 Mg Tablet) 6 mg PO BEDTIME PRN PRN Reason: Insomnia Metoprolol Succinate (Metoprolol Succinate Er 25 Mg Tab.Er.24h) 25 mg PO DAILY [facility]; Protocol Last Admin: 02/05/24 08:02 Dose: 25 mg Omeprazole (Omeprazole 20 Mg Capsule.Dr) 20 mg PO DAILY@0630 [facility] Last Admin: 02/05/24 05:30 Dose: 20 mg Ondansetron HCl (Ondansetron Hcl 4 Mg/2 Ml Vial) 4 mg IVPUSH Q8H PRN PRN Reason: Nausea and Vomiting Oxycodone HCl (Oxycodone Hcl Er 10 Mg Tab.Er.12h) 30 mg PO BID [facility] Oxycodone HCl (Oxycodone Hcl Immed Release 5 Mg Tablet) 20 mg PO Q4H PRN PRN Reason: Pain, Moderate(Pain Scale 4-6) Last Admin: 02/05/24 12:01 Dose: 20 mg Polyethylene Glycol (Polyethylene Glycol 3350 17 Gm Powd.Pack) 17 gm PO BID [facility] Last Admin: 02/05/24 08:04 Dose: Not Given Sodium Chloride (0.9 % Sodium Chloride Flush 3 Ml Syringe) 3 ml IVFLUSH QSHIFT [facility] Last Admin: 02/05/24 08:08 Dose: 3 ml Home Medications ?Medication ?Instructions ?Recorded ?Confirmed ?Type aspirin 81 mg tablet,delayed 81 mg PO DAILY 02/04/23 02/04/24 History release atorvastatin 20 mg tablet 40 mg PO BEDTIME 02/04/23 02/04/24 History fluoxetine 20 mg capsule 20 mg PO DAILY 02/04/23 02/04/24 History multivitamin 1 tab PO DAILY 02/04/23 02/04/24 History omeprazole 20 mg capsule,delayed 20 mg PO DAILY 02/04/23 02/04/24 History release biotin 5,000 mcg chewable tablet 5,000 mcg PO DAILY 03/28/23 02/04/24 History ondansetron 8 mg disintegrating 8 mg PO TID PRN Nausea 04/04/23 02/04/24 History tablet metoprolol succinate 25 mg 25 mg PO DAILY 04/19/23 02/04/24 History tablet,extended release 24 hr apixaban 5 mg tablet 5 mg PO BID 06/28/23 02/04/24 History calcium carbonate 600 mg-vitamin 1 tab PO BEDTIME 02/04/24 02/04/24 History D3 5 mcg (200 unit) tablet cholecalciferol (vitamin D3) 25 25 mcg PO DAILY 02/04/24 02/04/24 History mcg (1,000 unit) capsule (Vitamin D3) fentanyl 25 mcg/hr transdermal 1 patch transdermal Q3D 02/04/24 02/04/24 History patch Allergies Allergy/AdvReac Type Severity Reaction Status Date / Time No Known Allergies Allergy Verified 02/04/24 10:11 Exam Vital signs: Vital Signs Temp 97.2 F 02/05/24 12:12 Pulse 70 02/05/24 12:12 Resp 14 02/05/24 12:12 BP 172/79 H 02/05/24 12:12 Pulse Ox 94 02/05/24 12:12 O2 Del Method Room Air 02/05/24 12:12 Intake & Output 02/04/24 02/05/24 02/05/24 18:59 06:59 18:59 Intake Total 360 / 360 Output Total 850 / 850 Balance -490 / -490 Urine Output (Average ml/kg/hr) 1.52 Intake: Intake, Oral Amount 360 / 360 Output: Output, Urine Amount (Catheter) 850 / 850 Urostomy 850 / 850 Other: Breakfast % Eaten 25% Number of Bowel Movements 2 Urine Color Yellow Last Bowel Movement 02/05/24 Stool Incontinent Stool Color Brown Stool Consistency Loose Weight 46.6 kg Weight 46.6 kg BMI result Body Mass Index 19.4 - Constitutional Present: mild distress, thin - Routine HEENT Exam Head: Present: normal inspection - Routine Respiratory Exam Present: CTAB. Absent: accessory muscle use - Routine Cardiovascular Exam Cardiovascular: Present: S1, S2 - Routine Abdominal Exam Absent: mass Data - Labs CBC & Chem 7: 02/04/24 10:33 02/04/24 10:33 Labs: Laboratory Last Values WBC 7.4 X10*3/uL (4.8-10.8) 02/04/24 10:33 RBC 3.99 X10*6/uL (4.20-5.50) L 02/04/24 10:33 Hgb 12.2 g/dl (12.0-16.0) 02/04/24 10:33 Hct 36.3 % (37.0-47.0) L 02/04/24 10:33 MCV 91.0 fL (80.0-98.0) 02/04/24 10:33 MCH 30.6 pg (27.0-33.0) 02/04/24 10:33 MCHC 33.6 g/dl (31.0-35.0) 02/04/24 10:33 RDW 15.5 % (11.0-16.0) 02/04/24 10:33 Plt Count 180 X10*3/uL (160-400) 02/04/24 10:33 MPV 8.8 fL (9.4-12.3) L 02/04/24 10:33 Immature Gran % (Auto) 0.4 % (0.0-0.4) 02/04/24 10:33 Neut % (Auto) 83.1 % (45-73) H 02/04/24 10:33 Lymph % (Auto) 9.5 % (20-40) L 02/04/24 10:33 [place] % (Auto) 6.9 % (2-11) 02/04/24 10:33 Eos % (Auto) 0.0 % (0-4) 02/04/24 10:33 Baso % (Auto) 0.1 % (0-2) 02/04/24 10:33 Lymph # (Auto) 0.7 X10*3/uL (1.2-4.9) L 02/04/24 10:33 [place] # (Auto) 0.5 X10*3/uL (0.1-1.2) 02/04/24 10:33 Eos # (Auto) 0.0 X10*3/uL (0.0-0.4) 02/04/24 10:33 Baso # (Auto) 0.0 X10*3/uL (0.0-0.2) 02/04/24 10:33 Abs Immat Gran (auto) 0.03 X10*3/uL (0.00-0.03) 02/04/24 10:33 Absolute Neuts (auto) 6.2 x10*3/uL (2.0-8.3) 02/04/24 10:33 Absolute Nucleated RBC 0.000 X10*3/uL (0.0-0.012) 02/04/24 10:33 Nucleated RBC % (auto) 0.0 /100WBC (0.0-0.2) 02/04/24 10:33 Sodium 137 mmol/L (135-145) 02/04/24 10:33 Potassium 3.9 mmol/L (3.3-5.1) 02/04/24 10:33 Chloride 104 mmol/L (96-108) 02/04/24 10:33 Carbon Dioxide 24 mmol/L (22-29) 02/04/24 10:33 Anion Gap 13 (12-20) 02/04/24 10:33 BUN 21 mg/dL (9-16) H 02/04/24 10:33 Creatinine 0.68 mg/dL (0.5-1.4) 02/04/24 10:33 Estim Creat Clear Calc 53.4 02/04/24 10:33 Estimated GFR > 60 02/04/24 10:33 Random Glucose 112 mg/dL (60-115) 02/04/24 10:33 Calcium 10.0 mg/dL (8.4-10.2) 02/04/24 10:33 Magnesium 1.9 mg/dL (1.6-2.6) 02/04/24 10:33 Total Bilirubin 1.0 mg/dL (0.0-1.0) 02/04/24 10:33 AST 44 U/L (5-31) H 02/04/24 10:33 ALT 11 U/L (0-31) 02/04/24 10:33 Alkaline Phosphatase 258 U/L (39-117) H 02/04/24 10:33 Total Protein 6.7 g/dL (6.5-8.0) 02/04/24 10:33 Albumin 3.9 g/dL (3.5-5.0) 02/04/24 10:33 Lipase 15 U/L (8-78) 02/04/24 10:33 Urine Color Yellow 02/04/24 11:42 Urine Appearance Cloudy 02/04/24 11:42 Urine pH 8.0 (5.0-9.0) 02/04/24 11:42 Ur Specific [place] 1.015 (1.005-1.025) 02/04/24 11:42 Urine Protein Trace mg/dL (Neg-Trace) 02/04/24 11:42 Urine Glucose (UA) Negative mg/dL (Negative) 02/04/24 11:42 Urine Ketones 15 mg/dL (Negative) 02/04/24 11:42 Urine Blood Negative (Negative) 02/04/24 11:42 Urine Nitrite Negative (Negative) 02/04/24 11:42 Ur Leukocyte Esterase Small (1+) (Negative) H 02/04/24 11:42 Urine RBC 0-2 /HPF (0-2) 02/04/24 11:42 Urine WBC 6-10 /HPF (0-5) H 02/04/24 11:42 Ur Squamous Epith Cells 0-2 /HPF (0-2) 02/04/24 11:42 Calcium Oxalate Crystal Present 02/04/24 11:42 Other Crystals Present 02/04/24 11:42 Urine Bacteria 2+ (None Seen) 02/04/24 11:42 Hyaline Casts 0-2 /LPF (0-2) 02/04/24 11:42 - Imaging Radiologist's impression: ITS Impressions Abdomen/Pelvis CT 02/04/24 12:11 IMPRESSION: Patient with history of bladder cancer, status post post cystectomy, ileal conduit and right lower quadrant ostomy with suspicion for metastatic disease as follows: New bilateral lung lesions, largest pleural-based measuring 4.7 cm in the right lower lobe. Blastic lesions involving the pelvis, left acetabulum and T12 and L2 vertebral bodies. Mixed lytic and blastic process L1 with moderately severe compression deformity. 5.3 cm enhancing left perirectal soft tissue density with air droplet, suspicious for either abscess or infected neoplastic process. This showed FDG activity on 10/15/2023 PET/CT. Assessment and Plan Patient Active problem list reviewed?: Yes (1) Bladder cancer metastasized to bone Status: Acute Assessment and plan: 1. This is a pleasant 73-year-old woman who has been diagnosed with muscle invasive bladder cancer, clinical stage T3N0, stage III. She was diagnosed with stage IV/recurrent disease in September 2023. PDL1, negative. NGS testing performed by [facility] revealed: TMB low, MSI stable genomic alterations found in BAP1, CDKN2A, CDKN2B, CREBBP, MTAP, PTEN, STAG2. She was switched to pembrolizumab with enfortumab vedotin for metastatic bladder cancer in the first-line setting on 10/11/2023. PET scan performed at [facility] on 01/01/2024 unfortunately showed new bilateral pulmonary nodules max SUV of 4.6, right paratracheal lymph node, right infrahilar lymph node, left para-aortic lymph nodes. Interval decrease in size of FDG activity of left inguinal lymph node, worsening bone metastasis involving T12, L1, L3 vertebral body as well as left acetabulum, left symphysis pubis and left ischial tuberosity SUV ranging from 2.6 to 11.4. She has worsening pelvic pain related to progression of disease with bone Mets as well as lymphadenopathy. She is now receiving hydromorphone IV. Patient's daughter and significant other were at the bedside. Patient has decided on stopping all treatments including negative radiation therapy which was discussed for pain control. She would like to go on inpatient hospice care as she lives alone at home. She is being admitted for pain control. Appreciate hospitalist input. Her pain is not controlled. She has bone Mets in the pelvis which is causing her pain. Start dexamethasone IV for now until pain is better controlled. Plan is for her to go home with hospice services when she is off IV pain medications. - Time Spent With Patient Time Spent with Patient (in minutes): 10
[2024-02-05] MEDS: dexAMETHasone sod phosphate 4 MG/ML VIAL IVPUSH ×2 (13:25→19:09)
[2024-02-05 13:35] VITALS: BMI 19.4
--- NOTE | 2024-02-05 13:49 | MHC.CLN ---
NUTRITION DIET=REGULAR. PER CONVERSATION WITH PATIENT, POOR PO DUE TO PAIN. WILL TRY ENSURE BID. SUPPLEMENT PROVIDES 700 KCALS, 40 G PROTEIN. QUALIFIES MODERATELY MALNOURISHED IN THE CONTEXT OF CHRONIC ILLNESS. SIGNIFICANT WEIGHT LOSS X 6 MONTHS AND ONE YEAR. MODERATE DEPLETION OF MUSCLE MASS AND BODY FAT NOTED. PLAN IS FOR PATIENT TO TRANSITION TO HOSPICE CARE. FOLLOW FOR PLAN OF CARE. SEE CLINICAL NUTRITION ASSESSMENT 02/05/24.
[2024-02-05 15:14] VITALS: BP 119/65; PULSE 71; RESP 16; TEMP 36.6; O2SAT 96
[2024-02-05] MEDS: polyethylene glycoL 3350 17 GM POWD.PACK PO (20:40)
[2024-02-05] MEDS: oxyCODONE HCl ER 10 MG TAB.ER.12H 30 MG PO (20:40)
[2024-02-05] MEDS: Lactulose 20 GM/30 ML SOLUTION PO (20:40)
[2024-02-05 23:46] VITALS: BP 127/68; PULSE 71; RESP 16; TEMP 36; O2SAT 95
[2024-02-06] MEDS: dexAMETHasone sod phosphate 4 MG/ML VIAL IVPUSH ×4 (01:06→18:20)
[2024-02-06] MEDS: HYDROmorphone HCl 1 MG/ML SYRINGE IVPUSH ×3 (01:10→09:10)
[2024-02-06] MEDS: Omeprazole 20 MG CAPSULE.DR PO (05:32)
[2024-02-06] MEDS: Ibuprofen 400 MG TABLET PO ×3 (07:46→16:32)
[2024-02-06] MEDS: Acetaminophen 325 MG TABLET 650 MG PO ×3 (07:47→16:33)
[2024-02-06] MEDS: oxyCODONE HCl Immed Release 5 MG TABLET 20 MG PO (07:48)
[2024-02-06] MEDS: 0.9 % Sodium Chloride Flush 3 ML SYRINGE IVFLUSH ×2 (07:49→16:34)
[2024-02-06 08:00] VITALS: BP 142/73; PULSE 68; RESP 16; TEMP 36.3; O2SAT 97
[2024-02-06] MEDS: Metoprolol Succinate ER 25 MG TAB.ER.24H PO (08:47)
[2024-02-06] MEDS: Apixaban 5 MG TABLET PO ×2 (08:47→19:57)
[2024-02-06] MEDS: FLUoxetine HCl 20 MG CAPSULE PO (08:48)
[2024-02-06] MEDS: Lactulose 20 GM/30 ML SOLUTION PO (08:49)
[2024-02-06] MEDS: Docusate Sodium 100 MG CAPSULE PO ×2 (08:49→19:57)
[2024-02-06] MEDS: oxyCODONE HCl ER 10 MG TAB.ER.12H 30 MG PO ×2 (08:50→19:57)
[2024-02-06] MEDS: polyethylene glycoL 3350 17 GM POWD.PACK PO (08:52)
[2024-02-06] MEDS: cefuroxime axetiL 250 MG TABLET PO ×2 (09:10→19:57)
[2024-02-06] MEDS: HYDROmorphone HCl 2 MG TABLET 1 MG PO ×5 (11:29→22:27)
--- NOTE | 2024-02-06 13:21 | P.PNIM_ITS ---
Subjective Subjective Date of Service: 02/06/24 Interval History: seen and evaluated this morning still reporting pain mainly bedtime on IV and PO meds no other events Review of Systems Review of Systems: Yes all other systems are reviewed and are negative Physical Exam 2 Vital Signs: Vital Signs: Last Vital Signs Temp 97.4 F 02/06/24 08:00 Pulse 68 02/06/24 08:00 Resp 16 02/06/24 08:00 BP 142/73 H 02/06/24 08:00 Pulse Ox 97 02/06/24 08:00 O2 Del Method Room Air 02/06/24 08:00 BMI result Body Mass Index 19.4 Const: Other: Constitutional : interactive, not in distress Cardiovascular : no JVP, no lower extremity edema Respiratory : bilateral chest movement, not in resp distress Gastrointestinal: soft, lax, lower abd tenderness Skin : Warm, Dry Neurological : Alert & oriented , No focal deficit Objective Data Active Medications Acetaminophen (Acetaminophen 325 Mg Tablet) 650 mg PO TIDWM [facility] Last Admin: 02/06/24 11:29 Dose: 650 mg Documented By: MELVIN Apixaban (Apixaban 5 Mg Tablet) 5 mg PO BID [facility] Last Admin: 02/06/24 08:47 Dose: 5 mg Documented By: MELVIN Benzonatate (Benzonatate 100 Mg Capsule) 100 mg PO TID PRN PRN Reason: Cough Calcium Carbonate (Calcium Carbonate 750 Mg Tab.Chew) 750 mg PO Q4H PRN PRN Reason: Heartburn Cefuroxime Axetil (Cefuroxime Axetil 250 Mg Tablet) 250 mg PO BID [facility] Last Admin: 02/06/24 09:10 Dose: 250 mg Documented By: MELVIN Dexamethasone Sodium Phosphate (Dexamethasone Sod Phosphate 4 Mg/Ml Vial) 4 mg IVPUSH Q6H [facility] Last Admin: 02/06/24 12:41 Dose: 4 mg Documented By: MELVIN Docusate Sodium (Docusate Sodium 100 Mg Capsule) 100 mg PO BID [facility] Last Admin: 02/06/24 08:49 Dose: 100 mg Documented By: MELVIN Fluoxetine HCl (Fluoxetine Hcl 20 Mg Capsule) 20 mg PO DAILY [facility] Last Admin: 02/06/24 08:48 Dose: 20 mg Documented By: MELVIN Hydromorphone HCl (Hydromorphone Hcl 2 Mg Tablet) 1 mg PO Q2H PRN PRN Reason: Pain, Severe (Pain Scale 7-10) Last Admin: 02/06/24 11:29 Dose: 1 mg Documented By: MELVIN Ibuprofen (Ibuprofen 400 Mg Tablet) 400 mg PO TIDWM [facility] Last Admin: 02/06/24 11:30 Dose: 400 mg Documented By: MELVIN Lactulose (Lactulose 20 Gm/30 Ml Solution) 20 gm PO BID [facility] Last Admin: 02/06/24 08:49 Dose: 20 gm Documented By: MELVIN Lorazepam (Lorazepam 0.5 Mg Tablet) 0.5 mg PO Q8H PRN PRN Reason: Anxiety Magnesium Hydroxide (Milk Of Magnesia 30 Ml Oral.Susp) 30 ml PO DAILY PRN PRN Reason: Constipation Melatonin (Melatonin 3 Mg Tablet) 6 mg PO BEDTIME PRN PRN Reason: Insomnia Metoprolol Succinate (Metoprolol Succinate Er 25 Mg Tab.Er.24h) 25 mg PO DAILY [facility]; Protocol Last Admin: 02/06/24 08:47 Dose: 25 mg Documented By: MELVIN Omeprazole (Omeprazole 20 Mg Capsule.Dr) 20 mg PO DAILY@0630 [facility] Last Admin: 02/06/24 05:32 Dose: 20 mg Documented By: JC Ondansetron HCl (Ondansetron Hcl 4 Mg/2 Ml Vial) 4 mg IVPUSH Q8H PRN PRN Reason: Nausea and Vomiting Oxycodone HCl (Oxycodone Hcl Er 10 Mg Tab.Er.12h) 30 mg PO BID [facility] Last Admin: 02/06/24 08:50 Dose: 30 mg Documented By: MELVIN Polyethylene Glycol (Polyethylene Glycol 3350 17 Gm Powd.Pack) 17 gm PO BID [facility] Last Admin: 02/06/24 08:52 Dose: 17 gm Documented By: MELVIN Sodium Chloride (0.9 % Sodium Chloride Flush 3 Ml Syringe) 3 ml IVFLUSH QSHIFT [facility] Last Admin: 02/06/24 07:49 Dose: 3 ml Documented By: MELVIN Labs 02/04/24 10:33 02/04/24 10:33 Microbiology Microbiology Results: Microbiology 02/04/24 Unknown Urine Culture - Preliminary Urine Other - Nephrostomy Gram negative brando Assessment and Plan (1) UTI (urinary tract infection): Status: Acute (2) Bladder cancer metastasized to bone: Status: Acute Plan A 73 years old lady with PMH of Bladder Ca post surgery on suprapubic cath, 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 Intractable pain 2/2 Metastatic bladder cancer to bones DC PRN IV Dilaudid dc PO Oxycodone 20 mg Q4 Start Dilaudid PO 1 mg Q2H prn Oxycontinue 30 mg bid Dexamethasone 4 mg Q6 per Oncology Omeprazole daily Tylenol and Advil ATC Ativan PRN for anxiety Hospice team consult with goal to transition her to PO pain medications only Generalized weakness PT eval Constipation 2/2 Narcotics Lactulose and Miralax Hx DVT, continue eliquis GERD, Omeprazole CAD, Statin, ASA and Metoprolol UTI GNR in urine cultures on Ceftin PO Abnormal CT scan findings enhancing density w air droplet in left izabella-rectal area abscess vs infx metastatic lesion. To get surgery evaluation Blastic lesions in pelvis, T12, L2 with Mixed lytic L1 w mod-severe compression deformity New bilateral lung lesions , largest pleural based in RLL of 4.7cm DVT PPx Eliquis The patient will likely need overnight hospital stay for pain management pending pain control and discharge planning to home with hospice Quality Stroke Does the patient have a stroke diagnosis?: No VTE Prior VTE?: Yes VTE Risk Level:: Medical - moderate - high VTE Device Contraindication: Treatment Not Indicated VTE Drug Contraindication: Treatment Not Indicated
--- NOTE | 2024-02-06 14:27 | PM.PNGS ---
Subjective Subjective Date of Service: 02/06/24 Interval history: Patient is known to me in the past status post port placement, who unfortunately has metastatic bladder cancer. She said series of hospitalizations. This most recent [address] scan of the abdomen and pelvis with incidental finding of a peritoneal collection. Patient herself has no anorectal symptoms or complaints. She has tolerating a diet. At present she is having loose stool. She has no anorectal pain. In looking through the chart, patient has had this collection/process which was noted on a PET scan in September of this year. Chart was reviewed and patient evaluated Physical Exam Vital Signs: Vital Signs: Last Vital Signs Temp 97.4 F 02/06/24 08:00 Pulse 68 02/06/24 08:00 Resp 16 02/06/24 08:00 BP 142/73 H 02/06/24 08:00 Pulse Ox 97 02/06/24 08:00 O2 Del Method Room Air 02/06/24 08:00 BMI result Body Mass Index 19.4 Const: Other: Very thin frail pleasant female. GI: Other: Abdomen soft. Right lower quadrant ileal conduit. Benign. Rectal exam was tolerated but no obvious fluctuance or mass or palpable abscess demonstrated. Objective Data Active Medications Acetaminophen (Acetaminophen 325 Mg Tablet) 650 mg PO TIDWM [facility] Last Admin: 02/06/24 11:29 Dose: 650 mg Documented By: MELVIN Apixaban (Apixaban 5 Mg Tablet) 5 mg PO BID [facility] Last Admin: 02/06/24 08:47 Dose: 5 mg Documented By: MELVIN Benzonatate (Benzonatate 100 Mg Capsule) 100 mg PO TID PRN PRN Reason: Cough Calcium Carbonate (Calcium Carbonate 750 Mg Tab.Chew) 750 mg PO Q4H PRN PRN Reason: Heartburn Cefuroxime Axetil (Cefuroxime Axetil 250 Mg Tablet) 250 mg PO BID [facility] Last Admin: 02/06/24 09:10 Dose: 250 mg Documented By: MELVIN Dexamethasone Sodium Phosphate (Dexamethasone Sod Phosphate 4 Mg/Ml Vial) 4 mg IVPUSH Q6H [facility] Last Admin: 02/06/24 12:41 Dose: 4 mg Documented By: MELVIN Docusate Sodium (Docusate Sodium 100 Mg Capsule) 100 mg PO BID [facility] Last Admin: 02/06/24 08:49 Dose: 100 mg Documented By: MELVIN Fluoxetine HCl (Fluoxetine Hcl 20 Mg Capsule) 20 mg PO DAILY [facility] Last Admin: 02/06/24 08:48 Dose: 20 mg Documented By: MELVIN Hydromorphone HCl (Hydromorphone Hcl 2 Mg Tablet) 1 mg PO Q2H PRN PRN Reason: Pain, Severe (Pain Scale 7-10) Last Admin: 02/06/24 11:29 Dose: 1 mg Documented By: MELVIN Ibuprofen (Ibuprofen 400 Mg Tablet) 400 mg PO TIDWM [facility] Last Admin: 02/06/24 11:30 Dose: 400 mg Documented By: MELVIN Lactulose (Lactulose 20 Gm/30 Ml Solution) 20 gm PO BID [facility] Last Admin: 02/06/24 08:49 Dose: 20 gm Documented By: MELVIN Lorazepam (Lorazepam 0.5 Mg Tablet) 0.5 mg PO Q8H PRN PRN Reason: Anxiety Magnesium Hydroxide (Milk Of Magnesia 30 Ml Oral.Susp) 30 ml PO DAILY PRN PRN Reason: Constipation Melatonin (Melatonin 3 Mg Tablet) 6 mg PO BEDTIME PRN PRN Reason: Insomnia Metoprolol Succinate (Metoprolol Succinate Er 25 Mg Tab.Er.24h) 25 mg PO DAILY [facility]; Protocol Last Admin: 02/06/24 08:47 Dose: 25 mg Documented By: MELVIN Omeprazole (Omeprazole 20 Mg Capsule.Dr) 20 mg PO DAILY@0630 [facility] Last Admin: 02/06/24 05:32 Dose: 20 mg Documented By: JC Ondansetron HCl (Ondansetron Hcl 4 Mg/2 Ml Vial) 4 mg IVPUSH Q8H PRN PRN Reason: Nausea and Vomiting Oxycodone HCl (Oxycodone Hcl Er 10 Mg Tab.Er.12h) 30 mg PO BID [facility] Last Admin: 02/06/24 08:50 Dose: 30 mg Documented By: MELVIN Polyethylene Glycol (Polyethylene Glycol 3350 17 Gm Powd.Pack) 17 gm PO BID [facility] Last Admin: 02/06/24 08:52 Dose: 17 gm Documented By: MELVIN Sodium Chloride (0.9 % Sodium Chloride Flush 3 Ml Syringe) 3 ml IVFLUSH QSHIFT MARY JO Last Admin: 02/06/24 07:49 Dose: 3 ml Documented By: MELVIN Labs 02/04/24 10:33 02/04/24 10:33 Microbiology Microbiology Results: Microbiology 02/04/24 Unknown Urine Culture - Preliminary Urine Other - Nephrostomy Gram negative brando Procedures Date of Service Date of Service: 02/06/24 Progress Note: A&P Assessment and plan (1) Bladder cancer metastasized to bone: Status: Acute Plan Patient with stage IV bladder cancer. Multiple metastatic bony deposits. Incidental finding of perineal collection which is asymptomatic and has been present for several months. At present, no acute surgical intervention required. Will follow-up p.r.n.. Time Spent With Patient Time: Total time managing care of this patient today ____ minutes. Quality Stroke Does the patient have a stroke diagnosis?: No VTE Prior VTE?: Yes VTE Risk Level:: Medical - moderate - high VTE Device Contraindication: Treatment Not Indicated VTE Drug Contraindication: Treatment Not Indicated
--- NOTE | 2024-02-06 15:44 | MHC.CM.PN ---
MABLE SPOKE WITH [facility] WHO INFORMS THAT EQUIPMENT WILL BE DELIVERED TO PT'S HOME ON [address] IN [place] THIS EVENING. DAUGHTER IS AWARE OF THIS. CM CALLED AND LEFT MESSAGE FOR DAUGHTER JAMAR TO INFORM OF 11 AM TRANSFER VIA AMBULANCE TOMORROW, 02/06. MD UPDATED ON PLAN. PT MADE AWARE OF PLAN WELL. BLS TRANSPORT BOOKED VIA [employer].
[2024-02-06 15:53] VITALS: BP 125/62; PULSE 80; RESP 16; TEMP 36.3; O2SAT 97
[2024-02-06 23:58] VITALS: BP 131/72; PULSE 68; RESP 18; TEMP 36.5; O2SAT 99
[2024-02-07] MEDS: HYDROmorphone HCl 2 MG TABLET 1 MG PO ×4 (00:31→07:56)
[2024-02-07] MEDS: dexAMETHasone sod phosphate 4 MG/ML VIAL IVPUSH ×3 (00:31→13:22)
[2024-02-07] MEDS: 0.9 % Sodium Chloride Flush 3 ML SYRINGE IVFLUSH ×2 (00:31→07:54)
[2024-02-07] MEDS: LORazepam 0.5 MG TABLET PO ×2 (00:34→09:04)
[2024-02-07] MEDS: Omeprazole 20 MG CAPSULE.DR PO (05:38)
[2024-02-07 07:44] VITALS: BP 135/70; PULSE 69; RESP 17; TEMP 36.4; O2SAT 98
[2024-02-07] MEDS: ondansetron HCL 4 MG/2 ML VIAL IVPUSH (08:03)
[2024-02-07] MEDS: HYDROmorphone HCl 2 MG/ML VIAL IVPUSH (08:31)
[2024-02-07 11:05] VITALS: BP 167/84; PULSE 83
[2024-02-07] MEDS: FLUoxetine HCl 20 MG CAPSULE PO (11:05)
[2024-02-07] MEDS: cefuroxime axetiL 250 MG TABLET PO (11:05)
[2024-02-07] MEDS: Metoprolol Succinate ER 25 MG TAB.ER.24H PO (11:05)
[2024-02-07] MEDS: Apixaban 5 MG TABLET PO (11:05)
[2024-02-07] MEDS: HYDROmorphone HCl 2 MG TABLET PO ×2 (11:06→13:31)
[2024-02-07] MEDS: oxyCODONE HCl ER 10 MG TAB.ER.12H 30 MG PO (11:09)
--- NOTE | 2024-02-07 12:55 | P.CDIM_ITS ---
PROVIDER RESPONSE TEXT: To clarify, the appropriate diagnosis supported by the clinical indicators: Malnutrition: moderate QUERY TEXT: PHYSICIAN'S DOCUMENTATION REQUEST Date of Query: 02/06/2024 08:52 AM EDT Patient Name: Karmen Machuca Admit Date: 02/04/2024 Dear Steve Marti, A review of the medical record indicates additional documentation may be needed. Please review below and update the documentation accordingly. Clinical Indicators: BMI: 19.4 Other Clinical Notes Supporting Significance of the BMI: Clinical nutrition: Qualifies as moderately malnourished in the context of chronic illness. Ensure, BID Moderate depletion of muscle mass and body fat. If possible, please provide an associated diagnosis related to the abnormal BMI, such as: Malnutrition mild, moderate, severe Cachexia Anorexia Other (explain) Clinically unable to determine (explain) Thank you, Lynne Jean, CCS, CDIS Use of terms such as suspected, likely, concern for, or probable (associated with a specific diagnosi s that is being evaluated, monitored, or treated as if it exists) are acceptable and can be coded in the inpatient se tting, when documented at the time of discharge. Please use your independent medical judgment in providing your response. THIS QUERY IS PART OF THE PERMANENT MEDICAL RECORD
--- NOTE | 2024-02-07 13:15 | MHC.CLN ---
F/U DIET=REGULAR. ENSURE BID PROVIDES ADDITIONAL 700 KCALS, 40 G PROTEIN. QUALIFIES MODERATELY MALNOURISHED IN THE CONTEXT OF CHRONIC ILLNESS. VARIABLE INTAKE. FOLLOW FOR PLAN OF CARE.
[2024-02-07] MEDS: Prochlorperazine Edisylate 10 MG/2 ML VIAL 5 MG IVPUSH (13:19)
--- NOTE | 2024-02-07 14:07 | P.DS_ITS ---
DS: Providers Provider Date of Service: 02/07/24 Date of admission: 02/04/24 14:54 Primary care physician: BERTRAM Rogers Consults: 02/04/24 13:50 Consult to Hematology / Oncology Stat Consulting Provider: [facility] Oncology/Hematology Reason for consultation: pain control 02/06/24 10:39 Consult to General Surgery Routine Consulting Provider: [facility] General Surgeons Reason for consultation: 5.3 cm enhancing left perirectal density with air droplet,abscess\metastasi DS: Diagnosis Discharge Diagnosis (1) Bladder cancer metastasized to bone: Status: Acute (2) UTI (urinary tract infection): Status: Acute (3) Cancer associated pain: Status: Acute (4) Intractable back pain: Status: Acute DS: Summary Hospital Course Hospital Course: Admission note HPI A 73 years old lady with PMH of Bladder Ca post surgery on suprapubic cath, 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 The patient reports that the pain has been getting worse over the last week with no control even with the Oxycodone, Oxycontine and fentanyl. Patient agrees that chemotherapy did not help controlling her condition and that she reached a point where she needs to have more quality of life and better pain control. We discussed hospice care and she is ok with talking to hospice team. Admitted for pain management. Hospital course - Intractable pain secondary to Metastatic bladder cancer to bone as CT scan showed New bilateral lung lesions, largest pleural-based measuring 4.7 cm in the right lower lobe. Blastic lesions involving the pelvis, left acetabulum and T12 and L2 vertebral bodies. Mixed lytic and blastic process L1 with moderately severe compression deformity. She was started on Oxycodone and Oxycontine , removing the Fentanyl patch with no significant control of the pain. Changed to IV and PO dilaudid with better control. Seen by her Oncologist dr Dowd who started Dexamethasone as well. The pain was partially controlled, IV stopped and PO Dilaudid increased with better control along with Tylenol and Advil ATC and Ativan PRN for anxiety. Omeprazole dose increase to bid for stomach protection. Hospice team consulted and will be following her at home. Narcan presribed in case of overdose. - Constipation secondary to Narcotics. had bowel movements after placing her on Lactulose and Miralax. to continue with laxatives after discharge. - For Hx DVT, continue eliquis - UTI w Klebsiella in urine culture. Treated with Ceftriaxone. To be discharged on Ceftin PO - Abnormal CT scan findings. enhancing density w air droplet in left izabella-rectal area abscess vs infx metastatic lesion. surgery evaluated the patient and recommended no intervention. Discharge plan Dilaudid for pain Ativan for anxiety Dexamethasone for cancer pain Ceftin as antibiotic for UTI Naloxone if needed for narcotics overdose Take laxatives with goal of 1 Bowel movement in 1-2 days Time Attestation Discharge Coordination Time (in mins): 44 Quality: Safe Use of Opioids Does Pt have an Active Cancer Diagnosis on the Problem List?: Yes Opioid Measure Date for [facility] Report: 01/08/24 Opioid Measure Time for [facility] Report: 14:59 Quality: Stroke Does the patient have a stroke diagnosis?: No Physical Exam Vital Signs: Vital Signs: Last Vital Signs Temp 97.5 F 02/07/24 07:44 Pulse 83 02/07/24 11:05 Resp 17 02/07/24 07:44 BP 167/84 H 02/07/24 11:05 Pulse Ox 98 02/07/24 07:44 O2 Del Method Room Air 02/07/24 07:44 BMI result Body Mass Index 19.4 Const: Other: Constitutional : interactive, not in distress Cardiovascular : no JVP, no lower extremity edema Respiratory : bilateral chest movement, not in resp distress Gastrointestinal: soft, lax, lower abd tenderness Skin : Warm, Dry Neurological : Alert & oriented , No focal deficit DS: Data Imaging CT scan - abdomen: Radiologist's impression: ITS Impressions Abdomen/Pelvis CT 02/04/24 12:11 IMPRESSION: Patient with history of bladder cancer, status post post cystectomy, ileal conduit and right lower quadrant ostomy with suspicion for metastatic disease as follows: New bilateral lung lesions, largest pleural-based measuring 4.7 cm in the right lower lobe. Blastic lesions involving the pelvis, left acetabulum and T12 and L2 vertebral bodies. Mixed lytic and blastic process L1 with moderately severe compression deformity. 5.3 cm enhancing left perirectal soft tissue density with air droplet, suspicious for either abscess or infected neoplastic process. This showed FDG activity on 10/15/2023 PET/CT. Discharge Plan Discharge Anticipated Discharge Date/Time: 02/07/24 13:54 Patient Disposition: Hospice - Home Discharge Diagnosis: Metastatic cancer with intractable pain Referrals: Radha Dowd MD [Physician] - 2 days Shazia Maya PA [Primary Care Provider] - 2 days Discharge Medications: New cefuroxime axetil 250 mg tablet 250 mg PO BID 7 Days Qty: 14 0RF hydromorphone 2 mg Tablet 2 mg PO Q2H PRN (Reason: Pain, Severe (Pain Scale 7-10)) Qty: 100 0RF Rx Instructions: Partial Fill upon patient request. lorazepam 0.5 mg Tablet 0.5 mg PO Q8H PRN (Reason: Anxiety) Qty: 60 0RF ibuprofen 400 mg Tablet 400 mg PO BIDWM Qty: 90 0RF dexamethasone 4 mg tablet 4 mg PO BID Qty: 60 0RF polyethylene glycol 3350 17 gram Powder In Packet 17 g PO BID Qty: 100 0RF naloxone [Narcan] 4 mg/actuation spray,non-aerosol 4 mg intranasal Q3M PRN (Reason: opioid overdose) Qty: 2 0RF Rx Instructions: spray 1 dose into ONE nostril; alternate nostrils w each dose until help arrives Continued docusate sodium [Colace] 100 mg Capsule 100 mg PO BID Qty: 60 4RF metoprolol succinate 25 mg Tablet Extended Release 24 Hr 25 mg PO DAILY apixaban 5 mg Tablet 5 mg PO BID (DME) Chair, shower Misc Qty: 1 0RF Rx Instructions: As Directed oxycodone [OxyContin] 30 mg Tablet,Oral Only,Ext.Rel.12 Hr 30 mg PO Q12H Qty: 60 0RF Rx Instructions: Partial Fill upon patient request. biotin 5,000 mcg Tablet,Chewable 5,000 mcg PO DAILY calcium carbonate-vitamin D3 600 mg-5 mcg (200 unit) Tablet 1 tab PO BEDTIME cholecalciferol (vitamin D3) [Vitamin D3] 25 mcg (1,000 unit) Capsule 25 mcg PO DAILY ondansetron 8 mg tablet,disintegrating 8 mg PO TID PRN (Reason: Nausea) Qty: 90 0RF multivitamin Tablet 1 tab PO DAILY aspirin 81 mg tablet,delayed release (DR/EC) 81 mg PO DAILY Hold Instructions: Hold until your Follow up with Dr. Garcia fluoxetine 20 mg capsule 20 mg PO DAILY Changed omeprazole 20 mg capsule,delayed release(DR/EC) 20 mg PO BID@0630,1630 Qty: 120 0RF Discontinued oxycodone 20 mg Tablet 20 mg PO Q6H PRN (Reason: Pain (Scale Score 7-10)) Qty: 90 0RF Rx Instructions: Partial Fill upon patient request. fentanyl 25 mcg/hr patch 72 hour 1 patch transdermal Q3D atorvastatin 20 mg tablet 40 mg PO BEDTIME Discharge Orders: Discharge Order (Routine); Ordered 02/07/24 Ordered By: Steve Marti Diet: Advance to usual diet Activity on Discharge: As tolerated Stand Alone Forms: Patient Portal Discharge page, Work/School Release Print Language: Panamanian Activity Restrictions/Additional Instructions: you were prescribed antibiotics today, it is important that you take your medication to their entirety, do not skip any doses, do not finish them early. Follow-up with your primary care provider this week. Return to the emergency department with new or worsening symptoms. In case of emergency call 911 Care Plan Goals: Dilaudid for pain Ativan for anxiety Dexamethasone for cancer pain Ceftin as antibiotic for UTI Naloxone if needed for narcotics overdose Take laxatives with goal of 1 Bowel movement in 1-2 days Health Concerns: Read below Plan of Treatment: Read below Assessment: Read below Patient Instructions: Bladder Cancer (DC), Abdominal Pain (ED), Bone Metastasis (ED)
--- NOTE | 2024-02-07 14:10 | MHC.CM.PN ---
Patient medically cleared to go home on hospice w/ [facility]. Transport scheduled for 3pm via BLS. Patient, family, RN, MD and [facility] aware.
== END 2024-02-07 15:39 | disposition hospice, home (50) | DRG 948 ==
LOC: HO.ED 13:53 → HO.EDOVER 15:10 → HO.S3 23:32
PROVIDERS: Physician Assistant; Admitting Provider Student in an Organized Health Care Education/Training Program; Emergency Provider Emergency Medicine; PCP Physician Assistant; Visit Provider Student in an Organized Health Care Education/Training Program
DX: G89.3 Neoplasm related pain (acute) (chronic) (principal); C79.51 Secondary malignant neoplasm of bone; N39.0 Urinary tract infection, site not specified; E44.0 Moderate protein-calorie malnutrition; Z68.1 Body mass index [BMI] 19.9 or less, adult; R93.3 Abnormal findings on diagnostic imaging of other parts of digestive tract; K59.03 Drug induced constipation; Z66 Do not resuscitate; B96.1 Klebsiella pneumoniae [K. pneumoniae] as the cause of diseases classified elsewhere; K21.9 Gastro-esophageal reflux disease without esophagitis; I25.10 Atherosclerotic heart disease of native coronary artery without angina pectoris; M81.0 Age-related osteoporosis without current pathological fracture; T40.605A Adverse effect of unspecified narcotics, initial encounter; C67.9 Malignant neoplasm of bladder, unspecified; Z86.718 Personal history of other venous thrombosis and embolism; Z87.891 Personal history of nicotine dependence; Z79.01 Long term (current) use of anticoagulants; Z79.899 Other long term (current) drug therapy
CPT/HCPCS: 36415; 74177; 80053; 81001; 81003; 83690; 83735; 85025; 87086; 87088; 87186; 99285; J0737; J1100; J1170; J2270; J2405; Q9967

== ENCOUNTER → 2024-02-04 14:54 | Outpatient (BNV) | payer MEDICARE, OTHER, SELFPAY | PROVIDERS: Admitting Provider Student in an Organized Health Care Education/Training Program; Emergency Provider Emergency Medicine; PCP Physician Assistant; Visit Provider Internal Medicine | DX: R10.2 Pelvic and perineal pain (principal); C67.9 Malignant neoplasm of bladder, unspecified | CPT/HCPCS: 99222; 99231 ==

== ENCOUNTER → 2024-02-04 14:54 | Outpatient (BNV) | payer MEDICARE, OTHER, SELFPAY | PROVIDERS: Admitting Provider Student in an Organized Health Care Education/Training Program; Emergency Provider Emergency Medicine; PCP Physician Assistant; Visit Provider Surgery | DX: C67.9 Malignant neoplasm of bladder, unspecified (principal); C79.51 Secondary malignant neoplasm of bone | CPT/HCPCS: 99232 ==

== ENCOUNTER → 2024-02-04 14:54 | Outpatient (BNV) | payer MEDICARE, OTHER, SELFPAY | PROVIDERS: Admitting Provider Student in an Organized Health Care Education/Training Program; Emergency Provider Emergency Medicine; PCP Physician Assistant; Visit Provider Student in an Organized Health Care Education/Training Program | DX: C67.9 Malignant neoplasm of bladder, unspecified (principal); C79.51 Secondary malignant neoplasm of bone; N39.0 Urinary tract infection, site not specified; G89.3 Neoplasm related pain (acute) (chronic); M54.9 Dorsalgia, unspecified | CPT/HCPCS: 99222; 99232; 99239 ==